=== PATIENT | female | born 1950 | race African-American/Black ===

== ENCOUNTER 2023-10-28 14:00 | Outpatient (CLI) | payer MEDICARE, MEDICAID, SELFPAY ==
[2023-10-28 15:57] LABS: Occult Blood,Stool Negative (Negative)
== END 2023-10-28 23:59 | disposition home or self-care (01) ==
LOC: LAB.DROPOF 14:02
PROVIDERS: PCP Internal Medicine; Visit Provider Family Medicine
DX: D64.9 Anemia, unspecified (principal)
CPT/HCPCS: 82272; G0328

== ENCOUNTER 2024-03-23 13:27 | Emergency (ER) | payer MEDICARE, MEDICAID, SELFPAY ==
[2024-03-23] VITALS (15 sets, daily range): BP systolic 70–109; BP diastolic 31–89; PULSE 48–81; RESP 11–25; TEMP 30–33.1; O2SAT 93–100; BMI 21.8
--- NOTE | 2024-03-23 13:26 | CT_ITS ---
PROCEDURE INFORMATION: Exam: CT Head Without Contrast Exam date and time: 03/23/2024 2:49 PM Age: 74 years old Clinical indication: Other: Huffman scan TECHNIQUE: Imaging protocol: Computed tomography of the head without contrast. Radiation optimization: All CT scans at this facility use at least one of these dose optimization techniques: automated exposure control; mA and/or kV adjustment per patient size (includes targeted exams where dose is matched to clinical indication); or iterative reconstruction. COMPARISON: No relevant prior studies available. FINDINGS: Brain: No acute intracranial hemorrhage.. Well delineated low-attenuation in the frontal regions bilaterally consistent with encephalomalacia. There is moderate diffuse heterogeneity of the white matter attenuation, consistent with chronic white matter ischemic changes. Moderate cerebral atrophy Cerebral ventricles: No ventriculomegaly. Paranasal sinuses: Air-fluid level in the left maxillary sinus may represent sinusitis Mastoid air cells: Visualized mastoid air cells are well aerated. Bones: Unremarkable. No acute fracture. Soft tissues: Unremarkable. IMPRESSION: No acute intracranial hemorrhage..
--- NOTE | 2024-03-23 13:26 | CT_ITS ---
PROCEDURE INFORMATION: Exam: CT Chest Without Contrast; Diagnostic Exam date and time: 03/23/2024 2:53 PM Age: 74 years old Clinical indication: Other: Off eliquis TECHNIQUE: Imaging protocol: Diagnostic computed tomography of the chest without contrast. Radiation optimization: All CT scans at this facility use at least one of these dose optimization techniques: automated exposure control; mA and/or kV adjustment per patient size (includes targeted exams where dose is matched to clinical indication); or iterative reconstruction. COMPARISON: No comparison FINDINGS: Lungs: There are areas of peribronchial opacificationin the left lower lobe and to lesser extent the right lower lobe and posterior segment of the left upper lobe. smaller ill-defined areas of opacity in the right upper lobe. Pleural spaces: Unremarkable. No pneumothorax. No pleural effusion. Heart: Unremarkable. No cardiomegaly. No pericardial effusion. Coronary arteries: There are coronary artery calcifications. Lymph nodes: Unremarkable. No enlarged lymph nodes. Vasculature: Unremarkable. No aortic aneurysm. Bones/joints: There is minimal compression of the superior endplates of T5, T7 and mild compression of the superior endplate of T12. These are of indeterminate age. Soft tissues: Unremarkable. Other findings: CT of the abdomen is separately reported. IMPRESSION: 1. Areas of abnormal opacity most extensive in the left upper lobe with smaller areas of opacity in right lower lobe, left upper lobe and right upper lobe. This is most consistent with pneumonia. 2. Mild thoracic compression deformities of uncertain age. No evidence to indicate acute Fracture.
--- NOTE | 2024-03-23 13:36 | CT_ITS ---
PROCEDURE INFORMATION: Exam: CT Abdomen And Pelvis Without Contrast Exam date and time: 03/23/2024 2:56 PM Age: 74 years old Clinical indication: Other: Found down, moaning in pain TECHNIQUE: Imaging protocol: Computed tomography of the abdomen and pelvis without contrast. Radiation optimization: All CT scans at this facility use at least one of these dose optimization techniques: automated exposure control; mA and/or kV adjustment per patient size (includes targeted exams where dose is matched to clinical indication); or iterative reconstruction. COMPARISON: CT CHEST WO CON 03/23/2024 2:53 PM FINDINGS: Liver: The liver is normal. Gallbladder and biliary ducts: There is hyperdense material within the gallbladder. This could be milk of calcium unless there has been a recent contrast-enhanced scan. Pancreas: There are peripancreatic inflammatory changes. The pancreas appears slightly prominent although homogeneous in attenuation. Spleen: The spleen is normal. Adrenal glands: The adrenals are normal. Kidneys and ureters: There is a 14 mm right renal cyst. This appears to be a simple cyst within the limits of noncontrast scan. There is a 10 mm cluster of calcifications in the left kidney. No definite mass identified. No hydronephrosis. Stomach and bowel: There is moderate fecal stasis throughout the colon. No wall thickening. There are few colonic diverticula with no associated inflammation. No small bowel wall thickening or distension. Appendix: No evidence of appendicitis. Intraperitoneal space: No free fluid or fluid collection. No free air. Vasculature: Unremarkable. No abdominal aortic aneurysm. Lymph nodes: Unremarkable. No enlarged lymph nodes. Urinary bladder: There is a Jimenez catheter within the bladder which is decompressed. Reproductive: There are calcified fibroids in the uterus. Bones/joints: There is mild compression of the superior endplate of T12. There is a small inferior endplate fracture of L3. No significant loss of height. No additional fractures. Soft tissues: Unremarkable. Other findings: Chest CT separately reported. IMPRESSION: 1. Pancreatic enlargement and peripancreatic inflammation highly consistent with acute pancreatitis. 2. Density within the gallbladder presumed to be milk of calcium in the absence of previous contrast-enhanced scan. 3. Moderate fecal stasis in the colon with a few diverticula. No acute diverticulitis and no mechanical bowel obstruction. 4. Mild compression of superior endplate of T12 and the inferior endplate of L3 of uncertain age. COMMENTS: Consistent with the [employer]'s Incidental Findings Committee white paper (J Am Siria Radiol 2018): Any incidental renal lesion less than 1 cm or classified as too small to characterize, or any incidental cystic renal lesion characterized as simple-appearing, is likely benign. No follow-up imaging is recommended for these lesions per consensus recommendations based on imaging criteria.
--- NOTE | 2024-03-23 13:36 | CT_ITS ---
PROCEDURE INFORMATION: Exam: CT Cervical Spine Without Contrast Exam date and time: 03/23/2024 2:51 PM Age: 74 years old Clinical indication: Other: Found down TECHNIQUE: Imaging protocol: Computed tomography of the cervical spine without contrast. Radiation optimization: All CT scans at this facility use at least one of these dose optimization techniques: automated exposure control; mA and/or kV adjustment per patient size (includes targeted exams where dose is matched to clinical indication); or iterative reconstruction. COMPARISON: CT HEAD/BRAIN WO CON 03/23/2024 2:49 PM FINDINGS: Bones: No acute fracture of the cervical spine. No subluxation or dislocation of the cervical spine. Intervertebral disc space narrowing may represent degenerative disc disease.. Anterior osteophyte formation C3 through C7. Posterior osteophyte formation C5 through C7. Degenerative changes in the facets at multiple levels. Degenerative changes at C1/C2 Paranasal sinuses: Opacities in the ethmoid sinuses and left maxillary sinus may represent sinusitis Lungs: Lung apices are normal. Thyroid: The thyroid is unremarkable Soft tissues: Unremarkable. IMPRESSION: 1. No acute fracture of the cervical spine. 2. No subluxation or dislocation of the cervical spine. 3. Intervertebral disc space narrowing may represent degenerative disc disease..
[2024-03-23 13:37] LABS: Basophils % 0.4 % (0.1-2.0); Eosinophils % 0.7 % (0.1-12.0); Hematocrit 37.3 % (37.0-47.0); Hemoglobin 11.7 g/dL (12.2-16.2); Lymphocytes # 0.9 K/mm3 (0.7-4.5); Lymphocytes % 16.3 % (10-50); Mean Corpuscular HGB Conc 31.3 g/dL (31.8-35.4); Mean Corpuscular Hemoglobin 22.6 pg (27.0-31.2); Mean Corpuscular Volume 72.3 fl (81-99); Mean Platelet Volume 10.2 fl (7.4-10.4); Monocytes # 0.1 K/mm3 (0.1-1.0); Monocytes % 1.9 % (1.7-9.3); Neutrophils # 4.6 K/mm3 (1.8-7.8); Neutrophils % 80.7 % (37.0-80.0); Red Blood Count 5.16 M/mm3 (4.20-5.40); White Blood Count 5.7 K/mm3 (4.8-10.8)
[2024-03-23 13:41] LABS: Platelet Count 44 K/mm3 (142-424)
--- NOTE | 2024-03-23 13:41 | PC.NURSE ---
Chary aware of plt count 45
[2024-03-23 13:45] LABS: Activated Partial Thrombo Time 43.8 seconds (22.8-30.6); INR 1.27 (0.9-1.1); Prothrombin Time 13.9 seconds (10.1-12.5)
[2024-03-23] MEDS: CEFTRIAXONE SODIUM 2 GM in 0.9 % SODIUM CHLORIDE 100 ML IV (14:00)
[2024-03-23] MEDS: 0.9 % SODIUM CHLORIDE 1000ML 1,500 ML 750 ML IV (14:00)
[2024-03-23 14:01] LABS: Adenovirus,PCR Not Detected (NotDetected); Bordetella Pertussis Not Detected (NotDetected); Chlamydophila Pneumoniae, PCR Not Detected (NotDetected); Coronavirus 19, PCR Not Detected (NotDetected); Coronavirus 229E Not Detected (NotDetected); Coronavirus NL63 Not Detected (NotDetected); Coronavirus OC43 Not Detected (NotDetected); Coronovirus HKU1,PCR Not Detected (NotDetected); Human Metapneumovirus Not Detected (NotDetected); Influenza A, PCR Not Detected (NotDetected); Influenza AH1, 2009 Not Detected (NotDetected); Influenza AH1, PCR Not Detected (NotDetected); Influenza AH3,PCR Not Detected (NotDetected); Influenza B, PCR Not Detected (NotDetected); Mycoplasma Pneumoniae, PCR Not Detected (NotDetected); Parainfluenza 1, PCR Not Detected (NotDetected); Parainfluenza 2, PCR Not Detected (NotDetected); Parainfluenza 3, PCR Not Detected (NotDetected); Parainfluenza 4, PCR Not Detected (NotDetected); Respiratory Syncytial Virus Not Detected (NotDetected); Rhinovirus/Enterovirus Not Detected (NotDetected)
--- NOTE | 2024-03-23 14:02 | ED_ITS ---
Discharge Plan Disposition Patient Disposition: Xfer SNF Condition: Serious Prescriptions Prescriptions: No Action rivastigmine 9.5 mg/24 hour patch 24 hour 9.5 mg transdermal DAILY acetaminophen 500 mg tablet 500 mg PO Q6H PRN (Reason: Pain) lactulose 10 gram/15 mL solution 20 g PO DAILY PRN (Reason: Abdominal Pain) loperamide 2 mg capsule 2 mg PO Q6H PRN (Reason: Diarrhea) lorazepam 2 mg/mL solution 2 mg IM Q6H PRN (Reason: severe agitation) Rx Instructions: until symptoms controlled ondansetron 4 mg tablet,disintegrating 4 mg PO Q6H PRN (Reason: Nausea) clonazepam 1 mg tablet 1 mg PO BID risperidone 1 mg tablet,disintegrating 1 mg PO TID sennosides [Senna Lax] 8.6 mg tablet 8.6 mg PO BID amiodarone 200 mg tablet 200 mg PO DAILY apixaban 5 mg tablet 5 mg PO BID clonidine 0.1 mg/24 hr patch weekly 1 patch transdermal WEEKLY pantoprazole 40 mg tablet,delayed release (DR/EC) 40 mg PO BID melatonin 5 mg capsule 5 mg PO HS polyethylene glycol 3350 17 gram/dose powder 17 g PO DAILY venlafaxine 150 mg capsule,extended release 24hr 150 mg PO DAILY hydrocodone-acetaminophen 5-325 mg tablet 1 tab PO TID Qty: 90 0RF Referrals Follow up/Referrals: Provider,Referral, MD [Primary Care Provider] - See instructions Clinical Impressions Clinical Impression: Dementia, Atrial fibrillation, Sepsis, Acute renal failure, Acute hypernatremia, Pneumonia, Hypothermia Stand Alone Forms Stand Alone Forms: Transfer Record - ED Instructions Patient Instructions: DI for Altered Mental Status Print Language Print Language: Khmer Discharge ED Provider: Son Forte General Adult HPI <Diana Samayoa (ED), TREATMENT COUNSELOR - Last Filed: 03/23/24 17:23> General Chief complaint: Altered Mental Status Stated complaint: hypothermia Time Seen by Provider: 03/23/24 13:35 Mode of Arrival: EMS Source of Information: EMS Limitations: Language Barrier Description of Symptoms (Recalled from ER Triage Doc. by RN): Pt. presents to the ED via EMS. long term nurse reports she has been minimally responsive for the past 3 days, which is not her baseline. Today they could not get a temperature and she felt very cold to the touch, so the decision to call EMS was made. Pt. is responsive to light painful stimuli. History of Present Illness HPI narrative: This is a 74-year-old female who presents to the ED via EMS. long term reports that she has been minimally responsive for the past 3 days. She has been hypothermic at 94 4 on the assisted paperwork. Typically patient is nonverbal but responsive. She typically is combative to staff. She has not been this way for 3 days. Staff has been unable to get a rectal temperature and has been very cold to the touch according to the staff at [facility]. Patient is responsible to painful stimuli. Patient arrives to the ED with a temperature of 87.5 rectally. She also has not had her medications for 3 days. Patient is on amiodarone and Eliquis for A-fib. Related Data Home Medications ?Medication ?Instructions ?Recorded ?Confirmed amiodarone 200 mg tablet 200 mg PO DAILY 10/25/23 03/23/24 apixaban 5 mg tablet 5 mg PO BID 10/25/23 03/23/24 clonidine 0.1 mg/24 hr weekly 1 patch transdermal WEEKLY 10/25/23 03/23/24 transdermal patch melatonin 5 mg capsule 5 mg PO HS 10/25/23 03/23/24 pantoprazole 40 mg tablet,delayed 40 mg PO BID 10/25/23 03/23/24 release polyethylene glycol 3350 17 17 g PO DAILY 10/25/23 03/23/24 gram/dose oral powder venlafaxine 150 mg 150 mg PO DAILY 10/25/23 03/23/24 capsule,extended release 24 hr rivastigmine 9.5 mg/24 hour 9.5 mg transdermal DAILY 01/04/24 03/23/24 transdermal patch acetaminophen 500 mg tablet 500 mg PO Q6H PRN Pain 03/12/24 03/23/24 clonazepam 1 mg tablet 1 mg PO BID 03/12/24 03/23/24 lactulose 10 gram/15 mL oral 20 g PO DAILY PRN Abdominal Pain 03/12/24 03/23/24 solution loperamide 2 mg capsule 2 mg PO Q6H PRN Diarrhea 03/12/24 03/23/24 lorazepam 2 mg/mL injection 2 mg IM Q6H PRN severe agitation 03/12/24 03/23/24 solution ondansetron 4 mg disintegrating 4 mg PO Q6H PRN Nausea 03/12/24 03/23/24 tablet risperidone 1 mg disintegrating 1 mg PO TID 03/12/24 03/23/24 tablet sennosides 8.6 mg tablet (Senna 8.6 mg PO BID 03/12/24 03/23/24 Lax) Previous Rx's ?Medication ?Instructions ?Recorded hydrocodone 5 mg-acetaminophen 325 1 tab PO TID #90 tabs 02/22/24 mg tablet Allergies Allergy/AdvReac Type Severity Reaction Status Date / Time No Known Allergies Allergy Verified 03/23/24 13:52 PFSH <Diana Samayoa (ED), TREATMENT COUNSELOR - Last Filed: 03/23/24 17:23> PFS Disclaimer: The information contained in this section may have been updated after the patient was seen, as this information can be updated by other users. Medical History Cerebrovascular disease, unspecified Unable to care for self Blindness Atrial fibrillation history of Seizure disorder Irritation of right eye Hypomagnesemia Hypokalemia Hypernatremia Inadequate oral intake Swallowing difficulty Dementia Intellectual disability Encephalopathy Right ovarian enlargement Transaminitis Cellulitis and abscess of face Facial swelling Thrombocytopenia History of Klebsiella pneumonia CAUSED SEVERE SEPSIS Chronic heart failure with preserved ejection fraction (HFpEF) Anemia Hypertension Severe sepsis Hypoglycemia Hypothermia Social History (Updated 03/23/24 @ 17:23 by Diana Samayoa (ED), TREATMENT COUNSELOR) Smoking Status: Unknown if ever smoked alcohol intake: former current occupational status: unemployed Travel in the last 8 weeks: None Other Medical History Have you received the Pneumonia Vaccine: Yes (03/23/21) <Diana Samayoa (ED), TREATMENT COUNSELOR - Last Filed: 03/23/24 17:23> ROS Obtained: Yes Systems reviewed as appropriate & no additional complaints except as documented Constitutional Constitutional: Reports as per HPI Physical Exam <Diana Samayoa (ED), TREATMENT COUNSELOR - Last Filed: 03/23/24 17:23> General General appearance: other Comment: Responsive to painful stimuli Head Head exam: atraumatic ENT ENT exam: Present mucous membranes dry Respiratory Respiratory exam: Present wheezes and other (Rhonchi throughout) Cardiovascular Cardiovascular exam: Present regular rate, normal heart sounds, +S1 and +S2 Abdominal Exam Abdominal exam: Present soft and normal bowel sounds Extremities Exam Extremities exam: Present other (Cold to touch) Neurological Exam Neurological exam: Present other (Responsive to painful stimuli, nonverbal) Skin Skin exam: Present dry, intact and pallor Medical Decision Making <Diana Samayoa (ED), TREATMENT COUNSELOR - Last Filed: 03/23/24 17:23> Medical Records Screening: Per USPSTF and CDC recommendations, given the prevalence of disease in our region, it is our hospital?s policy to screen for HIV and viral Hepatitis for all patients aged 18 and over and those with ongoing risk factors. Baldo Inquiry Pt receiving controlled substance: No Baldo was queried for this patient: No Vital Signs: 03/23/24 13:30 03/23/24 14:00 03/23/24 14:16 Temperature 87.5 F L 86.0 F L 87.4 F L Temperature Source Rectal Pulse Rate 60 64 Pulse Rate [Right Brachial] 66 Respiratory Rate 13 14 11 L Blood Pressure 95/54 L 104/70 L Blood Pressure [Right Arm] 109/89 L Blood Pressure Mean [Right Arm] 95 Blood Pressure Source Blood Pressure Source [Right Arm] Automatic Cuff Blood Pressure Position Blood Pressure Position [Right Arm] Supine 02 Sat by Pulse Oximetry 99 100 98 Oxygen Delivery Method Room Air Oxygen Flow Rate (LPM) 2 03/23/24 14:30 03/23/24 15:27 03/23/24 15:30 Temperature 87.8 F L 88.3 F L 88.3 F L Temperature Source Pulse Rate 48 L Pulse Rate [Right Brachial] Respiratory Rate 13 25 H 21 Blood Pressure 102/61 L 91/66 L 101/69 L Blood Pressure [Right Arm] Blood Pressure Mean [Right Arm] Blood Pressure Source Blood Pressure Source [Right Arm] Blood Pressure Position Blood Pressure Position [Right Arm] 02 Sat by Pulse Oximetry 97 Oxygen Delivery Method Oxygen Flow Rate (LPM) 03/23/24 16:00 03/23/24 16:30 03/23/24 16:45 Temperature 88.7 F L 89.2 F L 89.6 F L Temperature Source Pulse Rate 57 L Pulse Rate [Right Brachial] Respiratory Rate 16 17 16 Blood Pressure 93/57 L 83/60 L 97/67 L Blood Pressure [Right Arm] Blood Pressure Mean [Right Arm] Blood Pressure Source Blood Pressure Source [Right Arm] Blood Pressure Position Blood Pressure Position [Right Arm] 02 Sat by Pulse Oximetry 96 Oxygen Delivery Method Oxygen Flow Rate (LPM) 03/23/24 17:00 03/23/24 17:14 03/23/24 17:16 Temperature 90.0 F L 90.3 F L 90.3 F L Temperature Source Pulse Rate 65 74 55 L Pulse Rate [Right Brachial] Respiratory Rate 13 15 13 Blood Pressure 82/54 L 80/49 L 104/31 L Blood Pressure [Right Arm] Blood Pressure Mean [Right Arm] Blood Pressure Source Blood Pressure Source [Right Arm] Blood Pressure Position Blood Pressure Position [Right Arm] 02 Sat by Pulse Oximetry 96 95 93 L Oxygen Delivery Method Oxygen Flow Rate (LPM) 03/23/24 17:26 03/23/24 17:30 03/23/24 17:51 Temperature 90.7 F L 90.9 F L 91.6 F L Temperature Source Pulse Rate 66 81 66 Pulse Rate [Right Brachial] Respiratory Rate 15 13 14 Blood Pressure 70/51 L 88/63 L 88/63 L Blood Pressure [Right Arm] Blood Pressure Mean [Right Arm] Blood Pressure Source Automatic Cuff Blood Pressure Source [Right Arm] Blood Pressure Position Supine Blood Pressure Position [Right Arm] 02 Sat by Pulse Oximetry 96 93 L Oxygen Delivery Method Room Air Oxygen Flow Rate (LPM) Lab Data Lab Results 03/23/24 11:23: Lipase 220 03/23/24 13:23: Troponin I 0.03, NT-Pro-B Natriuret Pep 712 H 03/23/24 13:25: WBC 5.7, RBC 5.16, Hgb 11.7 L, Hct 37.3, MCV 72.3 L, MCH 22.6 L, MCHC 31.3 L, RDW 19.0 H, Plt Count 44 L*, MPV 10.2, Neut % (Auto) 80.7 H, Lymph % (Auto) 16.3, [place] % (Auto) 1.9, Eos % (Auto) 0.7, Baso % (Auto) 0.4, Neut # (Auto) 4.6, Lymph # (Auto) 0.9, [place] # (Auto) 0.1, Eos # (Auto) 0.0, Baso # (Auto) 0.0, ESR 88 H, PT 13.9 H, INR 1.27 H, APTT 43.8 H, Sodium 165 H*, Potassium 4.5, Chloride 126 H, Carbon Dioxide 34 H, Anion Gap 9.5, BUN 105 H*, C reatinine 3.00 H, Estimated Creat Clear 16, Estimated GFR 15 L*, Est GFR ( Amer) 19 L*, Glucose 79, Calcium 8.6, Total Bilirubin 0.5, AST 50 H, ALT 32, Alkaline Phosphatase 103, Total Creatine Kinase 80, C-Reactive Protein 215.0 H, Total Protein 5.8 L, Albumin 2.7 L, Globulin 3.1, Albumin/Globulin Ratio 0.9 L 03/23/24 13:49: Lactate 1.0, Chlamy pneumoniae PCR Not detected, Adenovirus (PCR) Not detected, B. pertussis DNA (PCR) Not detected, Coronavirus OC43 (PCR) Not detected, Coronavirus HKU1 (PCR) Not detected, Coronavirus 229E (PCR) Not detected, SARS-CoV-2 (PCR) Not detected, Coronavirus NL63 (PCR) Not detected, Human Metapneumovir PCR Not detected, Influenza A (H1) PCR Not detected, Influ A (H1N1/09) PCR Not detected, Influenza A (H3) PCR Not detected, Influenza Type A (PCR) Not detected, Influenza Type B (PCR) Not detected, M. pneumoniae (PCR) Not detected, Parainfluenza 1 (PCR) Not detected, Parainfluenza 2 (PCR) Not detected, Parainfluenza 3 (PCR) Not detected, Parainfluenza 4 (PCR) Not detected, RSV (PCR) Not detected, Entero/Rhino (PCR) Not detected 03/23/24 13:52: VBG pH 7.29 L, VBG pCO2 56.1 H, VBG HCO3 26.6, VBG Total CO2 28.3 H, VBG O2 Saturation 97.7 H, VBG Base Excess 0.1, VBG Lactic Acid 1.6 03/23/24 13:59: Urine Color Yellow, Urine Appearance Sl cloudy, Urine pH 5.0, Ur Specific Pa[place] >= 1.030, Urine Protein Trace, Urine Glucose (UA) Negative, Urine Ketones Negative, Urine Blood Negative, Urine Nitrate Negative, Urine Bilirubin 1+ A, Urine Urobilinogen 0.2, Ur Leukocyte Esterase 1+ A, Urine RBC Occasional, Urine WBC 20-50, Ur Squamous Epith Cells 5-10, Urine Bacteria 3+ 03/23/24 15:53: Troponin I 0.04 H 03/23/24 13:25 03/23/24 13:25 Orders (Tests/Meds): ED MEDICATIONS Discontinued Medications Generic Name Dose Route Start Last Admin Trade Name Vira PRN Reason Stop Dose Admin Ceftriaxone Sodium 2 gm/ 100 mls @ 200 mls/hr 03/23/24 13:23 03/23/24 14:00 Sodium Chloride IV 03/23/24 13:52 200 mls/hr ONCE ONE Administration Lactated Ringer's 1,500 mls @ 750 mls/hr 03/23/24 13:23 03/23/24 14:13 Lactated Ringer's 1000 Ml Bag 30 ml/kg infuse over 2 hr (1500 ml) 03/23/24 15:22 Not Given IV .Q2H ONE Protocol Sodium Chloride 1,500 mls @ 750 mls/hr 03/23/24 14:15 03/23/24 14:00 Sod Chlor 0.9% 1000ml Bag 30 ml/kg (1500 ml) 03/23/24 16:14 750 mls/hr IV Administration .Q2H ONE Protocol Dextrose/Sodium Chloride 1,000 mls @ 100 mls/hr 03/23/24 14:30 03/23/24 14:35 Dextrose 5%-0.45% Nacl Iv Soln IV 04/22/24 14:29 100 mls/hr .Q10H STAR Administration Norepinephrine/Dextrose 8 mg in 250 mls @ 3.75 mls/hr 03/23/24 17:30 03/23/24 17:35 Norepinephrine 8mg/250ml-D5w Premix IV 04/22/24 17:29 8 mcg/min .Q24H STAR 15 mls/hr Infusion Protocol 2 MCG/MIN ORDERS Category Date Time Status CT abdomen pelvis wo con Stat Cat Scan 03/23/24 13:[address] cervical spine wo con Stat Cat Scan 03/23/24 13:[address] chest wo con Stat Cat Scan 03/23/24 13:[address] head/brain wo con Stat Cat Scan 03/23/24 13:26 Completed Activated Partial Thrombo Time Stat Lab 03/23/24 13:25 Completed C-Reactive Protein Stat Lab 03/23/24 13:25 Completed Complete Blood Count Auto Diff Stat Lab 03/23/24 13:25 Completed Comprehensive Metabolic Panel Stat Lab 03/23/24 13:25 Completed Creatine Kinase Stat Lab 03/23/24 13:25 Completed Erythrocyte Sedimentation Rate Stat Lab 03/23/24 13:25 Completed Full Resp Panel w/COVID ([facility]) Routine Lab 03/23/24 13:49 Completed Lactic Acid Stat Lab 03/23/24 13:49 Completed Lipase Stat Lab 03/23/24 11:23 Completed NT Pro Brain Natriuretic Pep. Stat Lab 03/23/24 13:23 Completed Prothrombin Time INR Stat Lab 03/23/24 13:25 Completed Trop I [Troponin I] Stat Lab 03/23/24 13:23 Completed Troponin I Q3H Lab 03/23/24 15:53 Completed Urinalysis and Microscopic Routine Lab 03/23/24 13:59 Completed Blood Culture Stat Micro 03/23/24 13:23 Results Urine Culture Stat Micro 03/23/24 13:59 Results VBG [Venous Blood Gas] Stat RT 03/23/24 13:52 Results Medical Decision Narrative: Insert review patient is a 74-year-old female presenting to the emergency department for evaluation of hypothermia over the past 3 days. She is a [facility] resident who is on a floor bed due to mental status. She is minimally responsive. She has a temperature of 87.5 rectally upon arrival to the ED patient has not had any of her medications for 3 days. She has history of anemia, dementia, epilepsy, hypertension, A-fib and is on Eliquis and amiodarone. Patient is normally responsive but is only responsible to painful stimuli at this time.. Patient is 87.5 rectally upon arrival, blood pressure is systolic 90s over 60s, responsive to painful stimuli, appears to be toxic and septic. Differential diagnosis includes sepsis, hypothermic, renal failure, pneumonia, renal failure among others. Workup will be conducted with hematologic labs, specific imaging including carson scan with CT of head, abdomen and chest, provocative tests. Initial inventions include crystalloid bolus, antibiotics. Initial workup reviewed by me with sodium of 165, chloride 126, BUN 105, creatinine 3, pH 7.29, GFR of 15. Patient appears to be in acute renal failure along with hypernatremia and has a platelet count of 44 showing some idiopathic thrombocytopenia. Discussed plan at length with who has seen patient and placed orders as well. CT head was normal, CT abdomen showed pancreatitis, CT chest showed multifocal pneumonia with some old compression fractures. Discussed with who accepted the patient in transfer to [facility] Dr. Thomason accepted patient. Patient then dropped blood pressure to systolic 80. Patient has had 1500 normal saline but with her hypernatremia we chose to start Levophed and titrate for MAP of 65. Dr. Brandon has also been updated on patient and order the Levophed the ambulance has been notified and patient will be transferred als. <Tory Brandon, DO - Last Filed: 03/23/24 18:06> Vital Signs: 03/23/24 13:30 03/23/24 14:00 03/23/24 14:16 Temperature 87.5 F L 86.0 F L 87.4 F L Temperature Source Rectal Pulse Rate 60 64 Pulse Rate [Right Brachial] 66 Respiratory Rate 13 14 11 L Blood Pressure 95/54 L 104/70 L Blood Pressure [Right Arm] 109/89 L Blood Pressure Mean [Right Arm] 95 Blood Pressure Source Blood Pressure Source [Right Arm] Automatic Cuff Blood Pressure Position Blood Pressure Position [Right Arm] Supine 02 Sat by Pulse Oximetry 99 100 98 Oxygen Delivery Method Room Air Oxygen Flow Rate (LPM) 2 03/23/24 14:30 03/23/24 15:27 03/23/24 15:30 Temperature 87.8 F L 88.3 F L 88.3 F L Temperature Source Pulse Rate 48 L Pulse Rate [Right Brachial] Respiratory Rate 13 25 H 21 Blood Pressure 102/61 L 91/66 L 101/69 L Blood Pressure [Right Arm] Blood Pressure Mean [Right Arm] Blood Pressure Source Blood Pressure Source [Right Arm] Blood Pressure Position Blood Pressure Position [Right Arm] 02 Sat by Pulse Oximetry 97 Oxygen Delivery Method Oxygen Flow Rate (LPM) 03/23/24 16:00 03/23/24 16:30 03/23/24 16:45 Temperature 88.7 F L 89.2 F L 89.6 F L Temperature Source Pulse Rate 57 L Pulse Rate [Right Brachial] Respiratory Rate 16 17 16 Blood Pressure 93/57 L 83/60 L 97/67 L Blood Pressure [Right Arm] Blood Pressure Mean [Right Arm] Blood Pressure Source Blood Pressure Source [Right Arm] Blood Pressure Position Blood Pressure Position [Right Arm] 02 Sat by Pulse Oximetry 96 Oxygen Delivery Method Oxygen Flow Rate (LPM) 03/23/24 17:00 03/23/24 17:14 03/23/24 17:16 Temperature 90.0 F L 90.3 F L 90.3 F L Temperature Source Pulse Rate 65 74 55 L Pulse Rate [Right Brachial] Respiratory Rate 13 15 13 Blood Pressure 82/54 L 80/49 L 104/31 L Blood Pressure [Right Arm] Blood Pressure Mean [Right Arm] Blood Pressure Source Blood Pressure Source [Right Arm] Blood Pressure Position Blood Pressure Position [Right Arm] 02 Sat by Pulse Oximetry 96 95 93 L Oxygen Delivery Method Oxygen Flow Rate (LPM) 03/23/24 17:26 03/23/24 17:30 03/23/24 17:51 Temperature 90.7 F L 90.9 F L 91.6 F L Temperature Source Pulse Rate 66 81 66 Pulse Rate [Right Brachial] Respiratory Rate 15 13 14 Blood Pressure 70/51 L 88/63 L 88/63 L Blood Pressure [Right Arm] Blood Pressure Mean [Right Arm] Blood Pressure Source Automatic Cuff Blood Pressure Source [Right Arm] Blood Pressure Position Supine Blood Pressure Position [Right Arm] 02 Sat by Pulse Oximetry 96 93 L Oxygen Delivery Method Room Air Oxygen Flow Rate (LPM) Lab Data Lab Results 03/23/24 11:23: Lipase 220 03/23/24 13:23: Troponin I 0.03, NT-Pro-B Natriuret Pep 712 H 03/23/24 13:25: WBC 5.7, RBC 5.16, Hgb 11.7 L, Hct 37.3, MCV 72.3 L, MCH 22.6 L, MCHC 31.3 L, RDW 19.0 H, Plt Count 44 L*, MPV 10.2, Neut % (Auto) 80.7 H, Lymph % (Auto) 16.3, [place] % (Auto) 1.9, Eos % (Auto) 0.7, Baso % (Auto) 0.4, Neut # (Auto) 4.6, Lymph # (Auto) 0.9, [place] # (Auto) 0.1, Eos # (Auto) 0.0, Baso # (Auto) 0.0, ESR 88 H, PT 13.9 H, INR 1.27 H, APTT 43.8 H, Sodium 165 H*, Potassium 4.5, Chloride 126 H, Carbon Dioxide 34 H, Anion Gap 9.5, BUN 105 H*, C reatinine 3.00 H, Estimated Creat Clear 16, Estimated GFR 15 L*, Est GFR ( Amer) 19 L*, Glucose 79, Calcium 8.6, Total Bilirubin 0.5, AST 50 H, ALT 32, Alkaline Phosphatase 103, Total Creatine Kinase 80, C-Reactive Protein 215.0 H, Total Protein 5.8 L, Albumin 2.7 L, Globulin 3.1, Albumin/Globulin Ratio 0.9 L 03/23/24 13:49: Lactate 1.0, Chlamy pneumoniae PCR Not detected, Adenovirus (PCR) Not detected, B. pertussis DNA (PCR) Not detected, Coronavirus OC43 (PCR) Not detected, Coronavirus HKU1 (PCR) Not detected, Coronavirus 229E (PCR) Not detected, SARS-CoV-2 (PCR) Not detected, Coronavirus NL63 (PCR) Not detected, Human Metapneumovir PCR Not detected, Influenza A (H1) PCR Not detected, Influ A (H1N1/09) PCR Not detected, Influenza A (H3) PCR Not detected, Influenza Type A (PCR) Not detected, Influenza Type B (PCR) Not detected, M. pneumoniae (PCR) Not detected, Parainfluenza 1 (PCR) Not detected, Parainfluenza 2 (PCR) Not detected, Parainfluenza 3 (PCR) Not detected, Parainfluenza 4 (PCR) Not detected, RSV (PCR) Not detected, Entero/Rhino (PCR) Not detected 03/23/24 13:52: VBG pH 7.29 L, VBG pCO2 56.1 H, VBG HCO3 26.6, VBG Total CO2 28.3 H, VBG O2 Saturation 97.7 H, VBG Base Excess 0.1, VBG Lactic Acid 1.6 03/23/24 13:59: Urine Color Yellow, Urine Appearance Sl cloudy, Urine pH 5.0, Ur Specific [place] >= 1.030, Urine Protein Trace, Urine Glucose (UA) Negative, Urine Ketones Negative, Urine Blood Negative, Urine Nitrate Negative, Urine Bilirubin 1+ A, Urine Urobilinogen 0.2, Ur Leukocyte Esterase 1+ A, Urine RBC Occasional, Urine WBC 20-50, Ur Squamous Epith Cells 5-10, Urine Bacteria 3+ 03/23/24 15:53: Troponin I 0.04 H Orders (Tests/Meds): ED MEDICATIONS Discontinued Medications Generic Name Dose Route Start Last Admin Trade Name Vira PRN Reason Stop Dose Admin Ceftriaxone Sodium 2 gm/ 100 mls @ 200 mls/hr 03/23/24 13:23 03/23/24 14:00 Sodium Chloride IV 03/23/24 13:52 200 mls/hr ONCE ONE Administration Lactated Ringer's 1,500 mls @ 750 mls/hr 03/23/24 13:23 03/23/24 14:13 Lactated Ringer's 1000 Ml Bag 30 ml/kg infuse over 2 hr (1500 ml) 03/23/24 15:22 Not Given IV .Q2H ONE Protocol Sodium Chloride 1,500 mls @ 750 mls/hr 03/23/24 14:15 03/23/24 14:00 Sod Chlor 0.9% 1000ml Bag 30 ml/kg (1500 ml) 03/23/24 16:14 750 mls/hr IV Administration .Q2H ONE Protocol Dextrose/Sodium Chloride 1,000 mls @ 100 mls/hr 03/23/24 14:30 03/23/24 14:35 Dextrose 5%-0.45% Nacl Iv Soln IV 04/22/24 14:29 100 mls/hr .Q10H STAR Administration Norepinephrine/Dextrose 8 mg in 250 mls @ 3.75 mls/hr 03/23/24 17:30 03/23/24 17:35 Norepinephrine 8mg/250ml-D5w Premix IV 04/22/24 17:29 8 mcg/min .Q24H STAR 15 mls/hr Infusion Protocol 2 MCG/MIN ORDERS Category Date Time Status CT abdomen pelvis wo con Stat Cat Scan 03/23/24 13:[address] cervical spine wo con Stat Cat Scan 03/23/24 13:[address] chest wo con Stat Cat Scan 03/23/24 13:[address] head/brain wo con Stat Cat Scan 03/23/24 13:26 Completed Activated Partial Thrombo Time Stat Lab 03/23/24 13:25 Completed C-Reactive Protein Stat Lab 03/23/24 13:25 Completed Complete Blood Count Auto Diff Stat Lab 03/23/24 13:25 Completed Comprehensive Metabolic Panel Stat Lab 03/23/24 13:25 Completed Creatine Kinase Stat Lab 03/23/24 13:25 Completed Erythrocyte Sedimentation Rate Stat Lab 03/23/24 13:25 Completed Full Resp Panel w/COVID ([facility]) Routine Lab 03/23/24 13:49 Completed Lactic Acid Stat Lab 03/23/24 13:49 Completed Lipase Stat Lab 03/23/24 11:23 Completed NT Pro Brain Natriuretic Pep. Stat Lab 03/23/24 13:23 Completed Prothrombin Time INR Stat Lab 03/23/24 13:25 Completed Trop I [Troponin I] Stat Lab 03/23/24 13:23 Completed Troponin I Q3H Lab 03/23/24 15:53 Completed Urinalysis and Microscopic Routine Lab 03/23/24 13:59 Completed Blood Culture Stat Micro 03/23/24 13:23 Results Urine Culture Stat Micro 03/23/24 13:59 Results VBG [Venous Blood Gas] Stat RT 03/23/24 13:52 Results Medical Decision Narrative: Insert review patient is a 74-year-old female presenting to the emergency department for evaluation of hypothermia over the past 3 days. She is a [facility] resident who is on a floor bed due to mental status. She is minimally responsive. She has a temperature of 87.5 rectally upon arrival to the ED patient has not had any of her medications for 3 days. She has history of anemia, dementia, epilepsy, hypertension, A-fib and is on Eliquis and amiodarone. Patient is normally responsive but is only responsible to painful stimuli at this time.. Patient is 87.5 rectally upon arrival, blood pressure is systolic 90s over 60s, responsive to painful stimuli, appears to be toxic and septic. Differential diagnosis includes sepsis, hypothermic, renal failure, pneumonia, renal failure among others. Workup will be conducted with hematologic labs, specific imaging including carson scan with CT of head, abdomen and chest, provocative tests. Initial inventions include crystalloid bolus, antibiotics. Initial workup reviewed by me with sodium of 165, chloride 126, BUN 105, creatinine 3, pH 7.29, GFR of 15. Patient appears to be in acute renal failure along with hypernatremia and has a platelet count of 44 showing some idiopathic thrombocytopenia. Discussed plan at length with who has seen patient and placed orders as well. CT head was normal, CT abdomen showed pancreatitis, CT chest showed multifocal pneumonia with some old compression fractures. Discussed with who accepted the patient in transfer to [facility] Dr. Thomason accepted patient. Patient then dropped blood pressure to systolic 80. Patient has had 1500 normal saline but with her hypernatremia we chose to start Levophed and titrate for MAP of 65. Dr. Brandon has also been updated on patient and order the Levophed the ambulance has been notified and patient will be transferred als. I was consulted by the RASHAD, and we discussed the complexity of the problems being addressed. I approved the treatment and management plan for this patient's care in the emergency department, thus performing a substantive portion of the medical decision making. Tory Brandon, DO <Son Forte MD - Last Filed: 03/24/24 15:26> Vital Signs: 03/23/24 13:30 03/23/24 14:00 03/23/24 14:16 Temperature 87.5 F L 86.0 F L 87.4 F L Temperature Source Rectal Pulse Rate 60 64 Pulse Rate [Right Brachial] 66 Respiratory Rate 13 14 11 L Blood Pressure 95/54 L 104/70 L Blood Pressure [Right Arm] 109/89 L Blood Pressure Mean [Right Arm] 95 Blood Pressure Source Blood Pressure Source [Right Arm] Automatic Cuff Blood Pressure Position Blood Pressure Position [Right Arm] Supine 02 Sat by Pulse Oximetry 99 100 98 Oxygen Delivery Method Room Air Oxygen Flow Rate (LPM) 2 03/23/24 14:30 03/23/24 15:27 03/23/24 15:30 Temperature 87.8 F L 88.3 F L 88.3 F L Temperature Source Pulse Rate 48 L Pulse Rate [Right Brachial] Respiratory Rate 13 25 H 21 Blood Pressure 102/61 L 91/66 L 101/69 L Blood Pressure [Right Arm] Blood Pressure Mean [Right Arm] Blood Pressure Source Blood Pressure Source [Right Arm] Blood Pressure Position Blood Pressure Position [Right Arm] 02 Sat by Pulse Oximetry 97 Oxygen Delivery Method Oxygen Flow Rate (LPM) 03/23/24 16:00 03/23/24 16:30 03/23/24 16:45 Temperature 88.7 F L 89.2 F L 89.6 F L Temperature Source Pulse Rate 57 L Pulse Rate [Right Brachial] Respiratory Rate 16 17 16 Blood Pressure 93/57 L 83/60 L 97/67 L Blood Pressure [Right Arm] Blood Pressure Mean [Right Arm] Blood Pressure Source Blood Pressure Source [Right Arm] Blood Pressure Position Blood Pressure Position [Right Arm] 02 Sat by Pulse Oximetry 96 Oxygen Delivery Method Oxygen Flow Rate (LPM) 03/23/24 17:00 03/23/24 17:14 03/23/24 17:16 Temperature 90.0 F L 90.3 F L 90.3 F L Temperature Source Pulse Rate 65 74 55 L Pulse Rate [Right Brachial] Respiratory Rate 13 15 13 Blood Pressure 82/54 L 80/49 L 104/31 L Blood Pressure [Right Arm] Blood Pressure Mean [Right Arm] Blood Pressure Source Blood Pressure Source [Right Arm] Blood Pressure Position Blood Pressure Position [Right Arm] 02 Sat by Pulse Oximetry 96 95 93 L Oxygen Delivery Method Oxygen Flow Rate (LPM) 03/23/24 17:26 03/23/24 17:30 03/23/24 17:51 Temperature 90.7 F L 90.9 F L 91.6 F L Temperature Source Pulse Rate 66 81 66 Pulse Rate [Right Brachial] Respiratory Rate 15 13 14 Blood Pressure 70/51 L 88/63 L 88/63 L Blood Pressure [Right Arm] Blood Pressure Mean [Right Arm] Blood Pressure Source Automatic Cuff Blood Pressure Source [Right Arm] Blood Pressure Position Supine Blood Pressure Position [Right Arm] 02 Sat by Pulse Oximetry 96 93 L Oxygen Delivery Method Room Air Oxygen Flow Rate (LPM) Lab Data Lab Results 03/23/24 11:23: Lipase 220 03/23/24 13:23: Troponin I 0.03, NT-Pro-B Natriuret Pep 712 H 03/23/24 13:25: WBC 5.7, RBC 5.16, Hgb 11.7 L, Hct 37.3, MCV 72.3 L, MCH 22.6 L, MCHC 31.3 L, RDW 19.0 H, Plt Count 44 L*, MPV 10.2, Neut % (Auto) 80.7 H, Lymph % (Auto) 16.3, [place] % (Auto) 1.9, Eos % (Auto) 0.7, Baso % (Auto) 0.4, Neut # (Auto) 4.6, Lymph # (Auto) 0.9, [place] # (Auto) 0.1, Eos # (Auto) 0.0, Baso # (Auto) 0.0, ESR 88 H, PT 13.9 H, INR 1.27 H, APTT 43.8 H, Sodium 165 H*, Potassium 4.5, Chloride 126 H, Carbon Dioxide 34 H, Anion Gap 9.5, BUN 105 H*, C reatinine 3.00 H, Estimated Creat Clear 16, Estimated GFR 15 L*, Est GFR ( Amer) 19 L*, Glucose 79, Calcium 8.6, Total Bilirubin 0.5, AST 50 H, ALT 32, Alkaline Phosphatase 103, Total Creatine Kinase 80, C-Reactive Protein 215.0 H, Total Protein 5.8 L, Albumin 2.7 L, Globulin 3.1, Albumin/Globulin Ratio 0.9 L 03/23/24 13:49: Lactate 1.0, Chlamy pneumoniae PCR Not detected, Adenovirus (PCR) Not detected, B. pertussis DNA (PCR) Not detected, Coronavirus OC43 (PCR) Not detected, Coronavirus HKU1 (PCR) Not detected, Coronavirus 229E (PCR) Not detected, SARS-CoV-2 (PCR) Not detected, Coronavirus NL63 (PCR) Not detected, Human Metapneumovir PCR Not detected, Influenza A (H1) PCR Not detected, Influ A (H1N1/09) PCR Not detected, Influenza A (H3) PCR Not detected, Influenza Type A (PCR) Not detected, Influenza Type B (PCR) Not detected, M. pneumoniae (PCR) Not detected, Parainfluenza 1 (PCR) Not detected, Parainfluenza 2 (PCR) Not detected, Parainfluenza 3 (PCR) Not detected, Parainfluenza 4 (PCR) Not detected, RSV (PCR) Not detected, Entero/Rhino (PCR) Not detected 03/23/24 13:52: VBG pH 7.29 L, VBG pCO2 56.1 H, VBG HCO3 26.6, VBG Total CO2 28.3 H, VBG O2 Saturation 97.7 H, VBG Base Excess 0.1, VBG Lactic Acid 1.6 03/23/24 13:59: Urine Color Yellow, Urine Appearance Sl cloudy, Urine pH 5.0, Ur Specific [place] >= 1.030, Urine Protein Trace, Urine Glucose (UA) Negative, Urine Ketones Negative, Urine Blood Negative, Urine Nitrate Negative, Urine Bilirubin 1+ A, Urine Urobilinogen 0.2, Ur Leukocyte Esterase 1+ A, Urine RBC Occasional, Urine WBC 20-50, Ur Squamous Epith Cells 5-10, Urine Bacteria 3+ 03/23/24 15:53: Troponin I 0.04 H Orders (Tests/Meds): ED MEDICATIONS Discontinued Medications Generic Name Dose Route Start Last Admin Trade Name Frefior PRN Reason Stop Dose Admin Ceftriaxone Sodium 2 gm/ 100 mls @ 200 mls/hr 03/23/24 13:23 03/23/24 14:00 Sodium Chloride IV 03/23/24 13:52 200 mls/hr ONCE ONE Administration Lactated Ringer's 1,500 mls @ 750 mls/hr 03/23/24 13:23 03/23/24 14:13 Lactated Ringer's 1000 Ml Bag 30 ml/kg infuse over 2 hr (1500 ml) 03/23/24 15:22 Not Given IV .Q2H ONE Protocol Sodium Chloride 1,500 mls @ 750 mls/hr 03/23/24 14:15 03/23/24 14:00 Sod Chlor 0.9% 1000ml Bag 30 ml/kg (1500 ml) 03/23/24 16:14 750 mls/hr IV Administration .Q2H ONE Protocol Dextrose/Sodium Chloride 1,000 mls @ 100 mls/hr 03/23/24 14:30 03/23/24 14:35 Dextrose 5%-0.45% Nacl Iv Soln IV 04/22/24 14:29 100 mls/hr .Q10H STAR Administration Norepinephrine/Dextrose 8 mg in 250 mls @ 3.75 mls/hr 03/23/24 17:30 03/23/24 17:35 Norepinephrine 8mg/250ml-D5w Premix IV 04/22/24 17:29 8 mcg/min .Q24H STAR 15 mls/hr Infusion Protocol 2 MCG/MIN ORDERS Category Date Time Status CT abdomen pelvis wo con Stat Cat Scan 03/23/24 13:[address] cervical spine wo con Stat Cat Scan 03/23/24 13:[address] chest wo con Stat Cat Scan 03/23/24 13:[address] head/brain wo con Stat Cat Scan 03/23/24 13:26 Completed Activated Partial Thrombo Time Stat Lab 03/23/24 13:25 Completed C-Reactive Protein Stat Lab 03/23/24 13:25 Completed Complete Blood Count Auto Diff Stat Lab 03/23/24 13:25 Completed Comprehensive Metabolic Panel Stat Lab 03/23/24 13:25 Completed Creatine Kinase Stat Lab 03/23/24 13:25 Completed Erythrocyte Sedimentation Rate Stat Lab 03/23/24 13:25 Completed Full Resp Panel w/COVID ([facility]) Routine Lab 03/23/24 13:49 Completed Lactic Acid Stat Lab 03/23/24 13:49 Completed Lipase Stat Lab 03/23/24 11:23 Completed NT Pro Brain Natriuretic Pep. Stat Lab 03/23/24 13:23 Completed Prothrombin Time INR Stat Lab 03/23/24 13:25 Completed Trop I [Troponin I] Stat Lab 03/23/24 13:23 Completed Troponin I Q3H Lab 03/23/24 15:53 Completed Urinalysis and Microscopic Routine Lab 03/23/24 13:59 Completed Blood Culture Stat Micro 03/23/24 13:23 Results Urine Culture Stat Micro 03/23/24 13:59 Results VBG [Venous Blood Gas] Stat RT 03/23/24 13:52 Results Medical Decision Narrative: Insert review patient is a 74-year-old female presenting to the emergency department for evaluation of hypothermia over the past 3 days. She is a [facility] resident who is on a floor bed due to mental status. She is minimally responsive. She has a temperature of 87.5 rectally upon arrival to the ED patient has not had any of her medications for 3 days. She has history of anemia, dementia, epilepsy, hypertension, A-fib and is on Eliquis and amiodarone. Patient is normally responsive but is only responsible to painful stimuli at this time.. Patient is 87.5 rectally upon arrival, blood pressure is systolic 90s over 60s, responsive to painful stimuli, appears to be toxic and septic. Differential diagnosis includes sepsis, hypothermic, renal failure, pneumonia, renal failure among others. Workup will be conducted with hematologic labs, specific imaging including carson scan with CT of head, abdomen and chest, provocative tests. Initial inventions include crystalloid bolus, antibiotics. Initial workup reviewed by me with sodium of 165, chloride 126, BUN 105, creatinine 3, pH 7.29, GFR of 15. Patient appears to be in acute renal failure along with hypernatremia and has a platelet count of 44 showing some idiopathic thrombocytopenia. Discussed plan at length with who has seen patient and placed orders as well. CT head was normal, CT abdomen showed pancreatitis, CT chest showed multifocal pneumonia with some old compression fractures. Discussed with who accepted the patient in transfer to [facility] Dr. Thomason accepted patient. Patient then dropped blood pressure to systolic 80. Patient has had 1500 normal saline but with her hypernatremia we chose to start Levophed and titrate for MAP of 65. Dr. Brandon has also been updated on patient and order the Levophed the ambulance has been notified and patient will be transferred als. I was consulted by the RASHAD, and we discussed the complexity of the problems being addressed. I approved the treatment and management plan for this patient's care in the emergency department, thus performing a substantive portion of the medical decision making. Tory Brandon DO Critical Care <Diana Samayoa (ED), TREATMENT COUNSELOR - Last Filed: 03/23/24 17:23> Critical Care Time Critical Care Time: No <Tory Brandon DO - Last Filed: 03/23/24 18:06> Critical Care Time Critical Care Time: Yes Attestation: On 03/23/24, the high probability of a clinically significant, sudden or life threatening deterioration of the following system(s) required my full and direct attention, intervention and personal management. The time I documented below is in addition to time spent performing reported procedures but includes the following listed in this critical care notation. Total Time Total Critical Care Time: 45
[2024-03-23 14:05] LABS: Microscopic, Urine URINE MICROSCOPIC (MICROSCOPIC)
[2024-03-23 14:05] LABS: Lactate Venous 1.6 mmol/L (0.4-2.0); VBG Base Excess 0.1 mmol/L (-2.4-2.3); VBG HCO3 26.6 mmol/L (23-30); VBG Oxygen Saturation 97.7 % (50-70); VBG PH 7.29 mmol/L (7.31-7.41); VBG Total CO2 28.3 mmol/L (23-27)
--- NOTE | 2024-03-23 14:05 | ECG_ITS ---
APPROVED REPORT Exam: Resting ECG HR:84 bpm ECG Measurements Heart Rate 84 AXES QRSd 92 QRS 45 QT 382 T -89 QTc 423 Conclusion ATRIAL FIBRILLATION Electronically signed by : ELIAN RODRIGUEZ, 03/23/2024 14:59:34
[2024-03-23 14:07] LABS: VBG PCO2 56.1 mmol/L (35-51)
[2024-03-23 14:09] LABS: Albumin Level 2.7 g/dl (3.5-5.0); Potassium 4.5 mmoL/L (3.5-5.1)
[2024-03-23 14:11] LABS: Appearance,Urine SL CLOUDY (Clear); Blood, Urine Negative (Negative); Color,Urine YELLOW (Yellow); Glucose,Urine (UA) Negative (Negative); Ketones,Urine Negative (Negative); Leukocyte Esterase,Urine 1+ (Negative); Nitrate,Urine Negative (Negative); Protein,Urine TRACE (Negative); Specific Gravity, Urine >= 1.030 (1.005-1.030); Urobilinogen,Urine 0.2 EU/dl (0.2)
[2024-03-23 14:11] LABS: Creatinine Clearance Estimated 16 mL/min (50-200); Estimated Glomerular Filt Rate 15 ml/min (>60); GFR (African American) 19 ML/MIN (>60)
[2024-03-23 14:12] LABS: Alanine Aminotransferase 32 U/L (12-78); Albumin/Globulin Ratio 0.9 (1.1-1.8); Alkaline Phosphatase 103 U/L (38-126); Anion Gap 9.5 mEq/L (5-15); Aspartate Amino Transferase 50 U/L (14-36); Bilirubin,Total 0.5 mg/dl (0.2-1.3); Calcium 8.6 mg/dl (8.4-10.2); Carbon Dioxide 34 mmol/L (22.0-30.0); Creatine Kinase 80 U/L (30-135); Globulin 3.1 g/dL (1.3-3.2); Glucose 79 mg/dl (74-100); Total Protein,Serum 5.8 g/dl (6.3-8.2)
[2024-03-23 14:13] LABS: Bilirubin,Urine 1+ (Negative)
[2024-03-23 14:16] LABS: Blood Urea Nitrogen 105 mg/dl (7-17); Chloride 126 mmol/L (98-107); Sodium 165 mmol/L (136-145)
[2024-03-23] MEDS: Dex 5% in 0.45% NaCl 1,000 ML 100 ML IV (14:35)
[2024-03-23 14:38] LABS: Erythrocyte Sedimentation Rate 88 mm/hr (0-30)
[2024-03-23 14:49] LABS: NT Pro Brain Natriuretic Pep. 712 pg/mL (0-125)
[2024-03-23 14:51] LABS: Troponin I 0.03 ng/ml (0.00-0.034)
[2024-03-23 14:57] LABS: Bacteria,Urine 3+ /lpf; RBC,Urine Occasional #/hpf (0-3); WBC,Urine 20-50 #/hpf (0-3)
[2024-03-23 16:21] LABS: Troponin I 0.04 ng/ml (0.00-0.034)
[2024-03-23 16:54] LABS: Lipase 220 U/L (23-300)
--- NOTE | 2024-03-23 16:58 | PC.NURSE ---
accepted patient at [facility].
--- NOTE | 2024-03-23 17:16 | PC.NURSE ---
calling ems at this time.
[2024-03-23] MEDS: NOREPINEPHRINE BITARTRATE/D5W 8 MG/250 ML PLAST..BAG 3.75 MG IV (17:19)
--- NOTE | 2024-03-24 08:17 | PC.NURSE ---
urine culture prelim discussed with , waiting on the final at this time
--- NOTE | 2024-03-25 13:49 | PC.NURSE ---
faxed completed urine culture to [facility] . Blood cultures no growth through day 2
--- NOTE | 2024-03-28 05:51 | PC.NURSE ---
Lab called to report pt had a positive blood culture. Anaerobic-gram positive rods. Spoke with Maryjane Wood MD and he stated to call [facility]. This RN called [facility] and spoke with JEAN Page who was taking care of the pt. Reported positive blood culture result to her.
== END 2024-03-23 18:00 ==
PROVIDERS: Nurse Practitioner; Emergency Provider Emergency Medicine
DX: R41.82 Altered mental status, unspecified (principal); T68.XXXA Hypothermia, initial encounter; J18.9 Pneumonia, unspecified organism; E87.0 Hyperosmolality and hypernatremia; N17.9 Acute kidney failure, unspecified; A41.9 Sepsis, unspecified organism; I48.91 Unspecified atrial fibrillation; G40.909 Epilepsy, unspecified, not intractable, without status epilepticus
CPT/HCPCS: 96361; 70450; 71250; 72125; 74176; 80053; 81001; 82550; 82803; 83605; 83690; 83880; 84484; 85025; 85610; 85651; 85730; 86140; 87040; 87075; 87086; 87088; 87186; 87633; 93005; 96365; 99291; J0696; J7030

== ENCOUNTER 2024-07-24 09:30 | Outpatient (CLI) | payer MEDICARE, MEDICAID, SELFPAY ==
[2024-07-24 09:40] LABS: Basophils % 0.2 % (0.1-2.0); Eosinophils # 0.2 K/mm3 (0.0-0.4); Eosinophils % 1.8 % (0.1-12.0); Hematocrit 34.1 % (37.0-47.0); Hemoglobin 10.4 g/dL (12.2-16.2); Lymphocytes # 2.6 K/mm3 (0.7-4.5); Lymphocytes % 29.6 % (10-50); Mean Corpuscular HGB Conc 30.5 g/dL (31.8-35.4); Mean Corpuscular Hemoglobin 21.3 pg (27.0-31.2); Mean Corpuscular Volume 69.7 fl (81-99); Monocytes # 0.7 K/mm3 (0.1-1.0); Monocytes % 7.4 % (1.7-9.3); Neutrophils # 5.3 K/mm3 (1.8-7.8); Neutrophils % 60.3 % (37.0-80.0); Platelet Count 252 K/mm3 (142-424); Red Blood Count 4.89 M/mm3 (4.20-5.40); Red Cell Distribution Width 14.9 % (11.5-17.5); White Blood Count 8.8 K/mm3 (4.8-10.8)
== END 2024-07-24 23:59 | disposition home or self-care (01) ==
PROVIDERS: PCP Family Medicine; Visit Provider Family Medicine
DX: D64.9 Anemia, unspecified (principal)
CPT/HCPCS: 36415; 85025

== ENCOUNTER 2024-08-12 07:30 | Outpatient (CLI) | payer MEDICARE, MEDICAID, SELFPAY ==
[2024-08-12 08:25] LABS: Valproic Acid, (Depakene) 33.3 ug/ml (50-100)
[2024-08-12 11:37] LABS: Basophils % 0.1 % (0.1-2.0); Eosinophils # 0.1 K/mm3 (0.0-0.4); Eosinophils % 1.3 % (0.1-12.0); Hematocrit 31.2 % (37.0-47.0); Hemoglobin 9.7 g/dL (12.2-16.2); Lymphocytes # 1.6 K/mm3 (0.7-4.5); Lymphocytes % 23.2 % (10-50); Mean Corpuscular HGB Conc 31.1 g/dL (31.8-35.4); Mean Corpuscular Hemoglobin 21.9 pg (27.0-31.2); Mean Corpuscular Volume 70.4 fl (81-99); Monocytes # 0.6 K/mm3 (0.1-1.0); Monocytes % 8.2 % (1.7-9.3); Neutrophils # 4.7 K/mm3 (1.8-7.8); Neutrophils % 66.9 % (37.0-80.0); Nucleated Red Blood Cells # 0 10^3/uL; Nucleated Red Blood Cells % 0 %; Platelet Count 205 K/mm3 (142-424); Red Blood Count 4.43 M/mm3 (4.20-5.40); Red Cell Distribution Width 16.4 % (11.5-17.5); Red Cell Distribution Width-SD 40.4 fL
== END 2024-08-12 23:59 | disposition home or self-care (01) ==
PROVIDERS: PCP Nurse Practitioner Family; Visit Provider Nurse Practitioner Family
DX: D64.9 Anemia, unspecified (principal); R89.2 Abnormal level of other drugs, medicaments and biological substances in specimens from other organs, systems and tissues
CPT/HCPCS: 36415; 80164; 85025

== ENCOUNTER 2024-09-06 07:03 | Outpatient (CLI) | payer MEDICARE, MEDICAID, SELFPAY ==
[2024-09-06 07:15] LABS: Basophils % 0.2 % (0.1-2.0); Eosinophils # 0.1 Kmm3 (0.0-0.4); Eosinophils % 1.8 % (0.1-12.0); Hematocrit 34.8 % (37.0-47.0); Hemoglobin 10.8 g/dL (12.2-16.2); Immature Granulocytes # 0.01 10^3uL; Immature Granulocytes % 0.2 %; Lymphocytes # 1.4 K/mm3 (0.7-4.5); Lymphocytes % 31.3 % (10-50); Mean Corpuscular Hemoglobin 21.6 pg (27.0-31.2); Mean Corpuscular Volume 69.6 fl (81-99); Monocytes # 0.3 K/mm3 (0.1-1.0); Monocytes % 5.7 % (1.7-9.3); Neutrophils # 2.7 K/mm3 (1.8-7.8); Neutrophils % 60.8 % (37.0-80.0); Nucleated Red Blood Cells # 0 10^3/uL; Nucleated Red Blood Cells % 0 %; Platelet Count 86 K/mm3 (142-424); Red Cell Distribution Width 17.6 % (11.5-17.5); Red Cell Distribution Width-SD 42.6 fL; White Blood Count 4.4 K/mm3 (4.8-10.8)
[2024-09-06 08:30] LABS: Albumin Level 3.7 g/dl (3.5-5.0); Chloride 112 mmol/L (98-107); Sodium 141 mmol/L (136-145)
[2024-09-06 08:31] LABS: Potassium 5.9 mmoL/L (3.5-5.1)
[2024-09-06 08:33] LABS: Alanine Aminotransferase 32 U/L (12-78); Albumin/Globulin Ratio 1.2 (1.1-1.8); Alkaline Phosphatase 165 U/L (38-126); Anion Gap 9.9 mEq/L (5-15); Aspartate Amino Transferase 38 U/L (14-36); Bilirubin,Total 0.2 mg/dl (0.2-1.3); Blood Urea Nitrogen 40 mg/dl (7-17); Carbon Dioxide 25 mmol/L (22.0-30.0); Estimated Glomerular Filt Rate 49 ml/min (>60); GFR (African American) 59 ML/MIN (>60); Globulin 3.2 g/dL (1.3-3.2); Total Protein,Serum 6.9 g/dl (6.3-8.2)
[2024-09-06 08:34] LABS: Calcium 9.4 mg/dl (8.4-10.2); Glucose 63 mg/dl (74-100); Iron 106 ug/dL (37-170)
[2024-09-06 08:44] LABS: Total Iron Binding Capacity 296 ug/dL (265-497)
[2024-09-06 09:09] LABS: Ferritin 137 ng/ml (11.1-264)
== END 2024-09-06 23:59 | disposition home or self-care (01) ==
PROVIDERS: PCP Family Medicine; Visit Provider Family Medicine
DX: D64.9 Anemia, unspecified (principal); I10 Essential (primary) hypertension
CPT/HCPCS: 36415; 80053; 82728; 83540; 83550; 84443; 85025

== ENCOUNTER 2024-09-06 13:52 | Outpatient (CLI) | payer MEDICARE, MEDICAID, SELFPAY ==
[2024-09-06 14:13] LABS: Chloride 109 mmol/L (98-107); Sodium 140 mmol/L (136-145)
[2024-09-06 14:16] LABS: Blood Urea Nitrogen 41 mg/dl (7-17); Calcium 9.4 mg/dl (8.4-10.2); Carbon Dioxide 28 mmol/L (22.0-30.0); Estimated Glomerular Filt Rate 44 ml/min (>60); GFR (African American) 53 ML/MIN (>60); Glucose 107 mg/dl (74-100)
== END 2024-09-06 23:59 | disposition home or self-care (01) ==
LOC: LAB.DROPOF 13:53
PROVIDERS: PCP Family Medicine; Visit Provider Family Medicine
DX: I50.9 Heart failure, unspecified (principal)
CPT/HCPCS: 80048

== ENCOUNTER 2024-09-07 08:45 | Outpatient (CLI) | payer MEDICARE, MEDICAID, SELFPAY ==
[2024-09-07 09:30] LABS: Chloride 107 mmol/L (98-107); Potassium 5.4 mmoL/L (3.5-5.1); Sodium 144 mmol/L (136-145)
[2024-09-07 09:33] LABS: Anion Gap 9.4 mEq/L (5-15); Blood Urea Nitrogen 48 mg/dl (7-17); Calcium 9.4 mg/dl (8.4-10.2); Carbon Dioxide 33 mmol/L (22.0-30.0); Estimated Glomerular Filt Rate 40 ml/min (>60); GFR (African American) 49 ML/MIN (>60); Glucose 78 mg/dl (74-100)
== END 2024-09-07 23:59 | disposition home or self-care (01) ==
LOC: LAB.DROPOF 08:46
PROVIDERS: PCP Family Medicine; Visit Provider Family Medicine
DX: I50.30 Unspecified diastolic (congestive) heart failure (principal)
CPT/HCPCS: 80048

== ENCOUNTER 2024-09-08 08:48 | Outpatient (CLI) | payer MEDICARE, MEDICAID, SELFPAY ==
[2024-09-08 09:25] LABS: Chloride 107 mmol/L (98-107); Potassium 4.9 mmoL/L (3.5-5.1); Sodium 144 mmol/L (136-145)
[2024-09-08 09:28] LABS: Anion Gap 6.9 mEq/L (5-15); Blood Urea Nitrogen 38 mg/dl (7-17); Carbon Dioxide 35 mmol/L (22.0-30.0); Estimated Glomerular Filt Rate 61 ml/min (>60); GFR (African American) 74 ML/MIN (>60)
[2024-09-08 09:29] LABS: Calcium 9.4 mg/dl (8.4-10.2)
[2024-09-08 09:35] LABS: Glucose 51 mg/dl (74-100)
== END 2024-09-08 23:59 | disposition home or self-care (01) ==
LOC: LAB 08:50
PROVIDERS: PCP Family Medicine; Visit Provider Family Medicine
DX: I50.30 Unspecified diastolic (congestive) heart failure (principal)
CPT/HCPCS: 80048

== ENCOUNTER 2024-09-09 07:19 | Outpatient (CLI) | payer MEDICARE, MEDICAID, SELFPAY ==
[2024-09-09 07:47] LABS: Basophils % 0.3 % (0.1-2.0); Eosinophils # 0.1 Kmm3 (0.0-0.4); Eosinophils % 1.2 % (0.1-12.0); Hematocrit 32.6 % (37.0-47.0); Hemoglobin 10.1 g/dL (12.2-16.2); Immature Granulocytes # 0.03 10^3uL; Immature Granulocytes % 0.4 %; Lymphocytes # 1.1 K/mm3 (0.7-4.5); Mean Corpuscular Hemoglobin 21.5 pg (27.0-31.2); Mean Corpuscular Volume 69.5 fl (81-99); Monocytes # 0.5 K/mm3 (0.1-1.0); Monocytes % 7.1 % (1.7-9.3); Neutrophils # 5.2 K/mm3 (1.8-7.8); Nucleated Red Blood Cells # 0 10^3/uL; Nucleated Red Blood Cells % 0 %; Platelet Count 71 K/mm3 (142-424); Red Blood Count 4.69 M/mm3 (4.20-5.40); Red Cell Distribution Width 17.8 % (11.5-17.5)
[2024-09-09 07:57] LABS: Valproic Acid, (Depakene) 32.4 ug/ml (50-100)
[2024-09-09 08:47] LABS: Chloride 108 mmol/L (98-107); Sodium 145 mmol/L (136-145)
[2024-09-09 08:50] LABS: Blood Urea Nitrogen 37 mg/dl (7-17); Calcium 9.6 mg/dl (8.4-10.2); Carbon Dioxide 34 mmol/L (22.0-30.0); Estimated Glomerular Filt Rate 70 ml/min (>60); GFR (African American) 85 ML/MIN (>60); Iron 79 ug/dL (37-170)
[2024-09-09 08:55] LABS: Glucose 49 mg/dl (74-100)
[2024-09-09 09:00] LABS: Total Iron Binding Capacity 301 ug/dL (265-497)
[2024-09-09 09:26] LABS: Ferritin 183 ng/ml (11.1-264)
== END 2024-09-09 23:59 | disposition home or self-care (01) ==
PROVIDERS: PCP Family Medicine; Visit Provider Family Medicine
DX: D64.9 Anemia, unspecified (principal)
CPT/HCPCS: 36415; 80048; 80164; 82728; 83540; 83550; 85025

== ENCOUNTER 2024-09-11 07:29 | Outpatient (CLI) | payer MEDICARE, MEDICAID, SELFPAY ==
[2024-09-11 08:32] LABS: Blood Urea Nitrogen 31 mg/dl (7-17); Calcium 9.4 mg/dl (8.4-10.2); Carbon Dioxide 36 mmol/L (22.0-30.0); Chloride 107 mmol/L (98-107); Estimated Glomerular Filt Rate 70 ml/min (>60); GFR (African American) 85 ML/MIN (>60); Glucose 73 mg/dl (74-100); Sodium 144 mmol/L (136-145)
== END 2024-09-11 23:59 | disposition home or self-care (01) ==
PROVIDERS: PCP Nurse Practitioner Family; Visit Provider Nurse Practitioner Family
DX: E87.6 Hypokalemia (principal)
CPT/HCPCS: 36415; 80048

== ENCOUNTER 2024-09-12 13:26 | Inpatient (IN) | payer MEDICARE, MEDICAID, SELFPAY ==
[2024-09-12] VITALS (53 sets, daily range): BP systolic 49–167; BP diastolic 25–144; PULSE 59–98; RESP 12–24; TEMP 32.2–37.2; O2SAT 94–100; BMI 20.6; BMI 20.9
--- NOTE | 2024-09-12 13:36 | ECG_ITS ---
APPROVED REPORT Exam: Resting ECG HR:73 bpm ECG Measurements Heart Rate 73 AXES MD 172 P 64 QRSd 94 QRS 53 QT 400 T 95 QTc 426 Conclusion SINUS RHYTHM WITH OCCASIONAL VENTRICULAR PREMATURE COMPLEXES NONSPECIFIC ST & T-WAVE ABNORMALITY BORDERLINE ECG Significant chatter precludes diagnostic ability of this EKG Electronically signed by : RANDAL AGUAYO, 09/23/2024 07:45:03
--- NOTE | 2024-09-12 13:47 | HMH.EDGENADL ---
Discharge Plan Disposition Patient Disposition: Admitted Condition: Critical Clinical Impressions Clinical Impression: Septic shock, Hypothyroidism, Pneumonia, Acute hypoxic respiratory failure Discharge ED Provider: Tory Brandon General Adult HPI <Son Foret MD - Last Filed: 09/12/24 15:12> General Stated complaint: AMS Time Seen by Provider: 09/12/24 13:30 History of Present Illness HPI narrative: Please note that above description of symptoms, in this electronic medical record under categorization of recalled from ER triage doctor by RN are reflective of an initial nursing assessment, however, is not reflective of my full history and physical exam that was personally taken and clarified. Consequentially, this preceding description of symptoms, which may include the patient's categorized chief complaint in the EMR, do not reflect my personal clinical impression, and the ultimate description of history of present illness and patient stated complaints should be deferred to this section of the note. Unless stated otherwise or congruent with this section of the note, additional signs, symptoms, or incongruence should be interpreted as inaccurate with my clinical impression. Related Data Home Medications ?Medication ?Instructions ?Recorded ?Confirmed amiodarone 200 mg tablet 200 mg PO DAILY 10/25/23 09/12/24 apixaban 5 mg tablet 5 mg PO BID 10/25/23 09/12/24 melatonin 5 mg capsule 5 mg PO HS 10/25/23 09/12/24 polyethylene glycol 3350 17 17 g PO DAILY 10/25/23 09/12/24 gram/dose oral powder acetaminophen 500 mg tablet 500 mg PO Q6H PRN Pain 03/12/24 09/12/24 clonidine HCl 0.1 mg tablet 0.1 mg PO TID 05/21/24 09/12/24 mirtazapine 15 mg tablet (Remeron) 15 mg PO HS 06/26/24 09/12/24 buspirone 5 mg tablet 5 mg PO TID 07/30/24 09/12/24 ferrous sulfate 325 mg (65 mg 325 mg PO DAILY 07/30/24 09/12/24 iron) tablet (FeroSul) lansoprazole 30 mg capsule,delayed 30 mg PO DAILY 07/30/24 09/12/24 release olanzapine 5 mg tablet (Zyprexa) 7.5 mg PO BID 09/04/24 09/12/24 divalproex 125 mg capsule,delayed 250 mg PO QID 09/10/24 09/12/24 release sprinkle (Depakote Sprinkles) Previous Rx's ?Medication ?Instructions ?Recorded levothyroxine 25 mcg tablet 25 mcg PO DAILY #90 tabs 04/16/24 hydrocodone 5 mg-acetaminophen 325 1 tab PO TID #90 tabs 07/31/24 mg tablet Allergies Allergy/AdvReac Type Severity Reaction Status Date / Time No Known Allergies Allergy Verified 09/04/24 14:39 [facility] <Son Forte MD - Last Filed: 09/12/24 15:12> [facility] Disclaimer: The information contained in this section may have been updated after the patient was seen, as this information can be updated by other users. Medical History Hypothyroid Acute renal failure Hypothermia Sepsis Acute hypernatremia Pancreatitis Pneumonia Cerebrovascular disease, unspecified Unable to care for self Blindness Atrial fibrillation Seizure disorder Irritation of right eye Hypomagnesemia Hypokalemia Hypernatremia Inadequate oral intake Swallowing difficulty Dementia Intellectual disability Encephalopathy Right ovarian enlargement Transaminitis Cellulitis and abscess of face Facial swelling Thrombocytopenia History of Klebsiella pneumonia Chronic heart failure with preserved ejection fraction (HFpEF) Anemia Hypertension Severe sepsis Hypoglycemia Hypothermia Family History (Updated 09/12/24 @ 19:00 by Amaris Bailey RN) Other No significant family history Social History (Updated 09/12/24 @ 19:00 by Amaris Bailey RN) Smoking Status: Unknown if ever smoked alcohol intake: former current occupational status: unemployed Travel in the last 8 weeks?: None Contact w/someone who lives/traveled outside [place] past 30 days?: No Exposure to someone with infectious disease in past 14 days?: No Do you have a fever (greater than 100.4 F or 38 C)?: No Have you tested positive for COVID-19?: No Exposed to someone with COVID-19 in past 14 days?: No Do you have a sore throat?: No Do you have a cough?: No Do you have any weakness?: No Are you experiencing any nausea/vomitting?: No Do you have any diarrhea?: No Are you experiencing any unusual bleeding?: No Do you have any muscle aches/pain?: No Do you have any abdominal pain?: No Are you experiencing loss of taste or smell?: No Other Medical History Have you received the Pneumonia Vaccine: Yes (03/23/21) <Son Forte MD - Last Filed: 09/12/24 15:12> ROS Obtained: Yes unobtainable due to mental status Physical Exam <Son Forte MD - Last Filed: 09/12/24 15:12> General General appearance: alert Head Head exam: atraumatic and normocephalic Eye Eye exam: Present normal appearance, PERRL and EOMI Neck Neck exam: Present normal inspection, full ROM and trachea midline Respiratory Respiratory exam: Present normal lung sounds bilaterally; Absent respiratory distress, wheezes, stridor, accessory muscle use or prolonged expiratory phase Cardiovascular Cardiovascular exam: Present regular rate, normal rhythm and other (Pulses equal symmetric in upper and lower extremities) Abdominal Exam Abdominal exam: Present soft; Absent distention, tenderness, guarding, rebound, rigidity or pulsatile mass Extremities Exam Extremities exam: Absent edema Neurological Exam Neurological exam: Present alert; Absent oriented X3 Skin Skin exam: Present warm and dry; Absent diaphoresis or erythema Medical Decision Making <Son Forte MD - Last Filed: 09/12/24 15:12> Medical Records Medical records reviewed: Yes I reviewed the patient's medical records. Screening: Per USPSTF and CDC recommendations, given the prevalence of disease in our region, it is our hospital?s policy to screen for HIV and viral Hepatitis for all patients aged 18 and over and those with ongoing risk factors. Baldo Inquiry Pt receiving controlled substance: No Baldo was queried for this patient: No Vital Signs: 09/12/24 13:55 09/12/24 13:55 09/12/24 14:05 Temperature 90 F L 90 F L Temperature Source Rectal Rectal Pulse Rate 74 69 Pulse Rate [Left] 62 Respiratory Rate 15 16 14 Blood Pressure 120/72 120/87 Blood Pressure [Right Arm] 119/92 H Blood Pressure Mean Blood Pressure Mean [Right Arm] 101 Blood Pressure Source Automatic Cuff Blood Pressure Source [Right Arm] Automatic Cuff Blood Pressure Position Supine Blood Pressure Position [Right Arm] Supine 02 Sat by Pulse Oximetry 94 L 94 L 95 Oxygen Delivery Method Room Air Room Air Room Air 09/12/24 14:31 09/12/24 15:01 09/12/24 15:10 Temperature Temperature Source Pulse Rate 72 59 L 66 Pulse Rate [Left] Respiratory Rate 24 14 Blood Pressure 167/117 H 50/26 L 54/28 L Blood Pressure [Right Arm] Blood Pressure Mean 34 Blood Pressure Mean [Right Arm] Blood Pressure Source Blood Pressure Source [Right Arm] Blood Pressure Position Blood Pressure Position [Right Arm] 02 Sat by Pulse Oximetry 96 97 98 Oxygen Delivery Method Room Air Room Air Room Air 09/12/24 15:15 09/12/24 15:21 09/12/24 15:23 Temperature 91.8 F L Temperature Source Core Pulse Rate 77 60 62 Pulse Rate [Left] Respiratory Rate 14 20 13 Blood Pressure 70/50 L 60/29 L 64/34 L Blood Pressure [Right Arm] Blood Pressure Mean Blood Pressure Mean [Right Arm] Blood Pressure Source Manual Cuff/ Auscultation Blood Pressure Source [Right Arm] Blood Pressure Position Supine Blood Pressure Position [Right Arm] 02 Sat by Pulse Oximetry 97 98 99 Oxygen Delivery Method Room Air Room Air Room Air 09/12/24 15:24 09/12/24 15:25 09/12/24 15:26 Temperature Temperature Source Pulse Rate 62 69 65 Pulse Rate [Left] Respiratory Rate 12 22 14 Blood Pressure 62/45 L 60/30 L 56/30 L Blood Pressure [Right Arm] Blood Pressure Mean Blood Pressure Mean [Right Arm] Blood Pressure Source Blood Pressure Source [Right Arm] Blood Pressure Position Blood Pressure Position [Right Arm] 02 Sat by Pulse Oximetry 100 96 98 Oxygen Delivery Method Room Air 09/12/24 15:40 09/12/24 15:46 09/12/24 15:50 Temperature Temperature Source Pulse Rate 68 67 69 Pulse Rate [Left] Respiratory Rate 15 13 14 Blood Pressure 127/44 L 123/61 114/52 L Blood Pressure [Right Arm] Blood Pressure Mean Blood Pressure Mean [Right Arm] Blood Pressure Source Blood Pressure Source [Right Arm] Blood Pressure Position Blood Pressure Position [Right Arm] 02 Sat by Pulse Oximetry 100 100 100 Oxygen Delivery Method Room Air Room Air Room Air 09/12/24 15:55 09/12/24 16:00 09/12/24 16:00 Temperature 92.7 F L Temperature Source Core Pulse Rate 67 68 Pulse Rate [Left] Respiratory Rate 13 13 Blood Pressure 110/49 L 105/54 L Blood Pressure [Right Arm] Blood Pressure Mean Blood Pressure Mean [Right Arm] Blood Pressure Source Blood Pressure Source [Right Arm] Blood Pressure Position Blood Pressure Position [Right Arm] 02 Sat by Pulse Oximetry 100 100 Oxygen Delivery Method Room Air Room Air 09/12/24 16:05 09/12/24 16:10 09/12/24 16:15 Temperature Temperature Source Pulse Rate 68 67 68 Pulse Rate [Left] Respiratory Rate 13 14 14 Blood Pressure 106/52 L 104/48 L 104/47 L Blood Pressure [Right Arm] Blood Pressure Mean Blood Pressure Mean [Right Arm] Blood Pressure Source Blood Pressure Source [Right Arm] Blood Pressure Position Blood Pressure Position [Right Arm] 02 Sat by Pulse Oximetry 100 100 100 Oxygen Delivery Method Room Air Room Air Room Air 09/12/24 16:21 09/12/24 16:25 09/12/24 16:30 Temperature Temperature Source Pulse Rate 77 73 70 Pulse Rate [Left] Respiratory Rate 12 15 15 Blood Pressure 137/61 148/122 H 87/45 L Blood Pressure [Right Arm] Blood Pressure Mean Blood Pressure Mean [Right Arm] Blood Pressure Source Blood Pressure Source [Right Arm] Blood Pressure Position Blood Pressure Position [Right Arm] 02 Sat by Pulse Oximetry 99 99 100 Oxygen Delivery Method Room Air Room Air Room Air 09/12/24 16:30 09/12/24 16:35 09/12/24 16:40 Temperature 93.2 F L Temperature Source Core Pulse Rate 67 69 Pulse Rate [Left] Respiratory Rate 12 15 Blood Pressure 80/41 L 99/45 L Blood Pressure [Right Arm] Blood Pressure Mean Blood Pressure Mean [Right Arm] Blood Pressure Source Blood Pressure Source [Right Arm] Blood Pressure Position Blood Pressure Position [Right Arm] 02 Sat by Pulse Oximetry 100 100 Oxygen Delivery Method Room Air Room Air 09/12/24 16:45 09/12/24 16:50 09/12/24 16:55 Temperature Temperature Source Pulse Rate 71 70 92 H Pulse Rate [Left] Respiratory Rate 14 13 15 Blood Pressure 98/44 L 91/45 L 73/36 L Blood Pressure [Right Arm] Blood Pressure Mean Blood Pressure Mean [Right Arm] Blood Pressure Source Blood Pressure Source [Right Arm] Blood Pressure Position Blood Pressure Position [Right Arm] 02 Sat by Pulse Oximetry 99 98 95 Oxygen Delivery Method Room Air Room Air Room Air 09/12/24 17:00 09/12/24 17:00 09/12/24 17:05 Temperature 93.6 F L Temperature Source Core Pulse Rate 90 91 H Pulse Rate [Left] Respiratory Rate 12 14 Blood Pressure 70/43 L 85/45 L Blood Pressure [Right Arm] Blood Pressure Mean Blood Pressure Mean [Right Arm] Blood Pressure Source Blood Pressure Source [Right Arm] Blood Pressure Position Blood Pressure Position [Right Arm] 02 Sat by Pulse Oximetry 96 95 Oxygen Delivery Method Room Air Room Air 09/12/24 17:17 09/12/24 17:19 09/12/24 17:22 Temperature Temperature Source Pulse Rate 87 86 82 Pulse Rate [Left] Respiratory Rate 17 19 13 Blood Pressure 65/39 L 129/41 L 115/96 H Blood Pressure [Right Arm] Blood Pressure Mean Blood Pressure Mean [Right Arm] Blood Pressure Source Blood Pressure Source [Right Arm] Blood Pressure Position Blood Pressure Position [Right Arm] 02 Sat by Pulse Oximetry 95 97 96 Oxygen Delivery Method Room Air Room Air Room Air 09/12/24 17:25 09/12/24 17:36 09/12/24 17:37 Temperature Temperature Source Pulse Rate 77 91 H 64 Pulse Rate [Left] Respiratory Rate 12 19 21 Blood Pressure 146/68 H 162/144 H 129/48 L Blood Pressure [Right Arm] Blood Pressure Mean Blood Pressure Mean [Right Arm] Blood Pressure Source Blood Pressure Source [Right Arm] Blood Pressure Position Blood Pressure Position [Right Arm] 02 Sat by Pulse Oximetry 96 97 97 Oxygen Delivery Method Room Air Room Air Room Air 09/12/24 17:41 09/12/24 17:45 09/12/24 17:50 Temperature 94.5 F L Temperature Source Core Pulse Rate 73 Pulse Rate [Left] 83 Respiratory Rate 21 Blood Pressure 122/48 L Blood Pressure [Right Arm] Blood Pressure Mean Blood Pressure Mean [Right Arm] Blood Pressure Source Blood Pressure Source [Right Arm] Blood Pressure Position Blood Pressure Position [Right Arm] 02 Sat by Pulse Oximetry 96 100 Oxygen Delivery Method Room Air Room Air 09/12/24 18:10 Temperature 96.3 F L Temperature Source Core Pulse Rate 84 Pulse Rate [Left] Respiratory Rate 18 Blood Pressure 122/48 L Blood Pressure [Right Arm] Blood Pressure Mean Blood Pressure Mean [Right Arm] Blood Pressure Source Automatic Cuff Blood Pressure Source [Right Arm] Blood Pressure Position Supine Blood Pressure Position [Right Arm] 02 Sat by Pulse Oximetry Oxygen Delivery Method Room Air Lab Data Lab Results 09/12/24 13:50: Urine Color Yellow, Urine Appearance Cloudy, Urine pH 6.0, Ur Specific [place] 1.020, Urine Protein Trace, Urine Glucose (UA) Negative, Urine Ketones Negative, Urine Blood Negative, Urine Nitrate Negative, Urine Bilirubin Negative, Urine Urobilinogen 1.0, Ur Leukocyte Esterase Trace, Urine RBC None, Urine WBC 10-20, Ur Squamous Epith Cells 3-5, Urine Bacteria 4+ 09/12/24 14:00: VBG pH 7.35, VBG pCO2 40.3, VBG pO2 41.4 H, VBG HCO3 22.0 L, VBG Total CO2 23.2, VBG O2 Saturation 75.8 H, VBG Base Excess -3.6 L, VBG Lactic Acid 2.2 H 09/12/24 14:43: Sodium 143, Potassium 4.8, Chloride 105, Carbon Dioxide 36 H, Anion Gap 6.8, BUN 33 H, Creatinine 0.70, Estimated Creat Clear 44, Estimated GFR 82, Est GFR ( Amer) 99, Glucose 220 H, Lactate 3.3 H, Calcium 9.2, Magnesium 2.2, Total Bilirubin 0.4, AST 33, ALT 28, Alkaline Phosphatase 100, Troponin I < 0.01, Total Protein 6.8, Albumin 3.5, Globulin 3.3 H, Albumin/Globulin Ratio 1.1, Lipase 18 L, Procalcitonin 0.589, TSH 84.40 H, Thyroxine (T4) 4.6 L 09/12/24 16:34: WBC 9.5, RBC 4.31, Hgb 9.2 L, Hct 29.7 L, MCV 68.9 L, MCH 21.3 L, MCHC 31.0 L, RDW 17.6 H, Plt Count 71 L, MPV TNP, Neut % (Auto) 87.9 H, Lymph % (Auto) 7.2 L, [place] % (Auto) 4.3, Eos % (Auto) 0.1, Baso % (Auto) 0.2, Neut # (Auto) 8.3 H, Lymph # (Auto) 0.7, [place] # (Auto) 0.4, Eos # (Auto) 0.0, Baso # (Auto) 0.0, PT 10.3, INR 0.91, APTT 25.2, Troponin I < 0.01 09/12/24 16:34 09/12/24 14:43 Orders (Tests/Meds): ED MEDICATIONS Generic Name Dose Route Start Last Admin Trade Name Vira PRN Reason Stop Dose Admin Hydrocortisone Sodium Succinate 50 mg 09/12/24 23:30 09/12/24 23:33 Hydrocortisone Sod Succinate 100mg Vial IV 10/12/24 23:29 50 mg Q6H STAR Administration Norepinephrine/Dextrose 8 mg in 250 mls @ 3.75 mls/hr 09/12/24 15:28 09/12/24 23:38 Levophed 8mg/250ml-D5w Premix IV 10/12/24 15:27 4 mcg/min .Q24H STAR 7.5 mls/hr Infusion Protocol 2 MCG/MIN Cefepime HCl 2 gm/ Sodium 100 mls @ 200 mls/hr 09/13/24 04:00 Chloride IV 09/23/24 03:59 Q12H STAR Vancomycin HCl 500 mg/ Sodium 250 mls @ 125 mls/hr 09/13/24 04:00 Chloride IV 09/23/24 03:59 Q12H STAR Levothyroxine Sodium 200 mcg 09/12/24 17:21 09/12/24 17:25 Levothyroxine Sodium 100 Mcg Vial IV 09/12/24 17:22 200 mcg ONCE ONE Administration Levothyroxine Sodium 100 mcg 09/13/24 07:00 Levothyroxine Sodium 100 Mcg Vial IV 09/15/24 07:01 DAILYDM STAR Miscellaneous 1 each 09/12/24 21:45 09/12/24 21:43 Vancomycin Consult Request NOTAPPLIC 10/12/24 21:44 1 each CONSULT PH[facility]Y [facility] Administration Discontinued Medications Generic Name Dose Route Start Last Admin Trade Name Vira PRN Reason Stop Dose Admin Dextrose 50 ml 09/12/24 21:15 09/12/24 20:35 Dextrose 50% 50ml Syringe (Crash Cart) IV 09/12/24 21:16 50 ml ONCE ONE Administration Droperidol 2.5 mg 09/12/24 14:35 09/12/24 14:59 Droperidol 5mg/2ml Vial IV 09/12/24 14:36 2.5 mg ONCE ONE Administration Sodium Chloride 1,000 mls @ 999 mls/hr 09/12/24 13:57 09/12/24 14:57 Sod Chlor 0.9% 1000ml Bag IV 09/12/24 14:57 999 mls/hr .Q1H1M ONE Administration Cefepime HCl 2 gm/ Sodium 100 mls @ 200 mls/hr 09/12/24 14:34 09/12/24 15:00 Chloride IV 09/12/24 15:03 200 mls/hr ONCE ONE Administration Vancomycin HCl 1,000 mg/ 250 mls @ 125 mls/hr 09/12/24 14:45 09/12/24 16:09 Sodium Chloride IV 09/12/24 16:44 125 mls/hr ONCE ONE Administration Lactated Ringer's 1,710 mls @ 855 mls/hr 09/12/24 15:11 09/12/24 16:09 Lactated Ringer's 1000 Ml Bag 30 ml/kg infuse over 2 hr (1710 ml) 09/12/24 17:10 855 mls/hr IV Administration .Q2H ONE Miscellaneous 1 each 09/12/24 14:45 Vancomycin Consult Request NOTAPPLIC 10/12/24 14:44 CONSULT PHARMACY [facility] Category Date Time Status XR chest portable Stat Exams 09/12/24 13:57 Completed Complete Blood Count Auto Diff AMLAB Lab 09/13/24 06:00 Ordered Complete Blood Count Auto Diff Stat Lab 09/12/24 16:34 Completed Comprehensive Metabolic Panel AMLAB Lab 09/13/24 06:00 Ordered Comprehensive Metabolic Panel Stat Lab 09/12/24 14:43 Completed Free Valproic Acid (Depakote) Routine Lab 09/12/24 16:34 Received Lactic Acid Follow Up (RFLX 1) Stat Lab 09/12/24 18:33 Completed Lactic Acid Stat Lab 09/12/24 14:43 Completed Lipase Stat Lab 09/12/24 14:43 Completed Magnesium AMLAB Lab 09/13/24 06:00 Ordered Magnesium Stat Lab 09/12/24 14:43 Completed PT INR [Prothrombin Time INR] Stat Lab 09/12/24 16:34 Completed PTT [Activated Partial Thrombo Time] Stat Lab 09/12/24 16:34 Completed Procalcitonin Stat Lab 09/12/24 14:43 Completed T4 (Thyroxine) Stat Lab 09/12/24 14:43 Completed TSH [Thyroid Stimulating Hormone] Stat Lab 09/12/24 14:43 Completed Troponin I Q3H Lab 09/12/24 16:34 Completed Troponin I Q3H Lab 09/12/24 20:40 Completed Troponin I Stat Lab 09/12/24 14:43 Completed Urinalysis and Microscopic Stat Lab 09/12/24 13:50 Completed Blood Culture Stat Micro 09/12/24 14:43 Received CRE Screen Routine Micro 09/12/24 18:33 Received Urine Culture Stat Micro 09/12/24 13:50 Received Venous Blood Gas Stat RT 09/12/24 14:00 Completed Medical Decision Narrative: 74-year-old Fe male who hypertension, hyperlipidemia, CVA, dementia, atrial fibrillation, CKD, among others presenting with hemoptysis. Patient was at the [facility] just prior to this visit, started hacking, coughing, brought up large light red mucous plug versus vomited. Just got done eating red ice cream, unknown if this is related. EMS picked her up, stated that she did this 1 more time prior to arrival, did not do it since. Per EMS, [facility] also states patient feels cold to the touch. No fevers were measured there. On arrival, at neurologic baseline. Crying out, but this is normal, per EMS and since my previous interaction with her. Largely not responding to me, but she is alert, eyes open, pupils 3 mm and reactive. Lungs are clear, abdomen is soft, nontender, nondistended. No lower extremity edema. Differential includes pneumonia, bronchitis, sepsis, PE, urinary tract infection, among others. Patient placed on continuous cardiac monitoring and continuous pulse ox with initial blood pressure 120/72, heart rate 74, saturation 94% on room air. Independent interpretation of EKG shows largely nondiagnostic exam. Appears ventricular rate to be around 80 bpm. [place] interval 172, QRS 94, QTc 426, no obvious acute ischemic change, but difficult to discern. Patient was given fluids and droperidol for symptomatic management and correction of underlying abnormalities. Patient also hypothermic, empirically antibiosed. Workup independently interpreted and significant for VBG with normal pH, mildly decreased bicarb at 22. Lactate 3.3 with catheterized sample urinalysis with bacteria, white blood cells consistent with urinary tract infection versus colonization. Patient will need to be admitted for sepsis management, likely, but prior to this, care note off oncoming physician. Link Trainer Maintenance Man disclaimer Much of this encounter note is an electronic spd manager spoken language to printed text. Electronic spd manager of the spoken language may permit errors. Although I have reviewed the note, some errors may still exist. <Tory Brandon, DO - Last Filed: 09/13/24 00:43> Vital Signs: 09/12/24 13:55 09/12/24 13:55 09/12/24 14:05 Temperature 90 F L 90 F L Temperature Source Rectal Rectal Pulse Rate 74 69 Pulse Rate [Left] 62 Respiratory Rate 15 16 14 Blood Pressure 120/72 120/87 Blood Pressure [Right Arm] 119/92 H Blood Pressure Mean Blood Pressure Mean [Right Arm] 101 Blood Pressure Source Automatic Cuff Blood Pressure Source [Right Arm] Automatic Cuff Blood Pressure Position Supine Blood Pressure Position [Right Arm] Supine 02 Sat by Pulse Oximetry 94 L 94 L 95 Oxygen Delivery Method Room Air Room Air Room Air 09/12/24 14:31 09/12/24 15:01 09/12/24 15:10 Temperature Temperature Source Pulse Rate 72 59 L 66 Pulse Rate [Left] Respiratory Rate 24 14 Blood Pressure 167/117 H 50/26 L 54/28 L Blood Pressure [Right Arm] Blood Pressure Mean 34 Blood Pressure Mean [Right Arm] Blood Pressure Source Blood Pressure Source [Right Arm] Blood Pressure Position Blood Pressure Position [Right Arm] 02 Sat by Pulse Oximetry 96 97 98 Oxygen Delivery Method Room Air Room Air Room Air 09/12/24 15:15 09/12/24 15:21 09/12/24 15:23 Temperature 91.8 F L Temperature Source Core Pulse Rate 77 60 62 Pulse Rate [Left] Respiratory Rate 14 20 13 Blood Pressure 70/50 L 60/29 L 64/34 L Blood Pressure [Right Arm] Blood Pressure Mean Blood Pressure Mean [Right Arm] Blood Pressure Source Manual Cuff/ Auscultation Blood Pressure Source [Right Arm] Blood Pressure Position Supine Blood Pressure Position [Right Arm] 02 Sat by Pulse Oximetry 97 98 99 Oxygen Delivery Method Room Air Room Air Room Air 09/12/24 15:24 09/12/24 15:25 09/12/24 15:26 Temperature Temperature Source Pulse Rate 62 69 65 Pulse Rate [Left] Respiratory Rate 12 22 14 Blood Pressure 62/45 L 60/30 L 56/30 L Blood Pressure [Right Arm] Blood Pressure Mean Blood Pressure Mean [Right Arm] Blood Pressure Source Blood Pressure Source [Right Arm] Blood Pressure Position Blood Pressure Position [Right Arm] 02 Sat by Pulse Oximetry 100 96 98 Oxygen Delivery Method Room Air 09/12/24 15:40 09/12/24 15:46 09/12/24 15:50 Temperature Temperature Source Pulse Rate 68 67 69 Pulse Rate [Left] Respiratory Rate 15 13 14 Blood Pressure 127/44 L 123/61 114/52 L Blood Pressure [Right Arm] Blood Pressure Mean Blood Pressure Mean [Right Arm] Blood Pressure Source Blood Pressure Source [Right Arm] Blood Pressure Position Blood Pressure Position [Right Arm] 02 Sat by Pulse Oximetry 100 100 100 Oxygen Delivery Method Room Air Room Air Room Air 09/12/24 15:55 09/12/24 16:00 09/12/24 16:00 Temperature 92.7 F L Temperature Source Core Pulse Rate 67 68 Pulse Rate [Left] Respiratory Rate 13 13 Blood Pressure 110/49 L 105/54 L Blood Pressure [Right Arm] Blood Pressure Mean Blood Pressure Mean [Right Arm] Blood Pressure Source Blood Pressure Source [Right Arm] Blood Pressure Position Blood Pressure Position [Right Arm] 02 Sat by Pulse Oximetry 100 100 Oxygen Delivery Method Room Air Room Air 09/12/24 16:05 09/12/24 16:10 09/12/24 16:15 Temperature Temperature Source Pulse Rate 68 67 68 Pulse Rate [Left] Respiratory Rate 13 14 14 Blood Pressure 106/52 L 104/48 L 104/47 L Blood Pressure [Right Arm] Blood Pressure Mean Blood Pressure Mean [Right Arm] Blood Pressure Source Blood Pressure Source [Right Arm] Blood Pressure Position Blood Pressure Position [Right Arm] 02 Sat by Pulse Oximetry 100 100 100 Oxygen Delivery Method Room Air Room Air Room Air 09/12/24 16:21 09/12/24 16:25 09/12/24 16:30 Temperature Temperature Source Pulse Rate 77 73 70 Pulse Rate [Left] Respiratory Rate 12 15 15 Blood Pressure 137/61 148/122 H 87/45 L Blood Pressure [Right Arm] Blood Pressure Mean Blood Pressure Mean [Right Arm] Blood Pressure Source Blood Pressure Source [Right Arm] Blood Pressure Position Blood Pressure Position [Right Arm] 02 Sat by Pulse Oximetry 99 99 100 Oxygen Delivery Method Room Air Room Air Room Air 09/12/24 16:30 09/12/24 16:35 09/12/24 16:40 Temperature 93.2 F L Temperature Source Core Pulse Rate 67 69 Pulse Rate [Left] Respiratory Rate 12 15 Blood Pressure 80/41 L 99/45 L Blood Pressure [Right Arm] Blood Pressure Mean Blood Pressure Mean [Right Arm] Blood Pressure Source Blood Pressure Source [Right Arm] Blood Pressure Position Blood Pressure Position [Right Arm] 02 Sat by Pulse Oximetry 100 100 Oxygen Delivery Method Room Air Room Air 09/12/24 16:45 09/12/24 16:50 09/12/24 16:55 Temperature Temperature Source Pulse Rate 71 70 92 H Pulse Rate [Left] Respiratory Rate 14 13 15 Blood Pressure 98/44 L 91/45 L 73/36 L Blood Pressure [Right Arm] Blood Pressure Mean Blood Pressure Mean [Right Arm] Blood Pressure Source Blood Pressure Source [Right Arm] Blood Pressure Position Blood Pressure Position [Right Arm] 02 Sat by Pulse Oximetry 99 98 95 Oxygen Delivery Method Room Air Room Air Room Air 09/12/24 17:00 09/12/24 17:00 09/12/24 17:05 Temperature 93.6 F L Temperature Source Core Pulse Rate 90 91 H Pulse Rate [Left] Respiratory Rate 12 14 Blood Pressure 70/43 L 85/45 L Blood Pressure [Right Arm] Blood Pressure Mean Blood Pressure Mean [Right Arm] Blood Pressure Source Blood Pressure Source [Right Arm] Blood Pressure Position Blood Pressure Position [Right Arm] 02 Sat by Pulse Oximetry 96 95 Oxygen Delivery Method Room Air Room Air 09/12/24 17:17 09/12/24 17:19 09/12/24 17:22 Temperature Temperature Source Pulse Rate 87 86 82 Pulse Rate [Left] Respiratory Rate 17 19 13 Blood Pressure 65/39 L 129/41 L 115/96 H Blood Pressure [Right Arm] Blood Pressure Mean Blood Pressure Mean [Right Arm] Blood Pressure Source Blood Pressure Source [Right Arm] Blood Pressure Position Blood Pressure Position [Right Arm] 02 Sat by Pulse Oximetry 95 97 96 Oxygen Delivery Method Room Air Room Air Room Air 09/12/24 17:25 09/12/24 17:36 09/12/24 17:37 Temperature Temperature Source Pulse Rate 77 91 H 64 Pulse Rate [Left] Respiratory Rate 12 19 21 Blood Pressure 146/68 H 162/144 H 129/48 L Blood Pressure [Right Arm] Blood Pressure Mean Blood Pressure Mean [Right Arm] Blood Pressure Source Blood Pressure Source [Right Arm] Blood Pressure Position Blood Pressure Position [Right Arm] 02 Sat by Pulse Oximetry 96 97 97 Oxygen Delivery Method Room Air Room Air Room Air 09/12/24 17:41 09/12/24 17:45 09/12/24 17:50 Temperature 94.5 F L Temperature Source Core Pulse Rate 73 Pulse Rate [Left] 83 Respiratory Rate 21 Blood Pressure 122/48 L Blood Pressure [Right Arm] Blood Pressure Mean Blood Pressure Mean [Right Arm] Blood Pressure Source Blood Pressure Source [Right Arm] Blood Pressure Position Blood Pressure Position [Right Arm] 02 Sat by Pulse Oximetry 96 100 Oxygen Delivery Method Room Air Room Air 09/12/24 18:10 Temperature 96.3 F L Temperature Source Core Pulse Rate 84 Pulse Rate [Left] Respiratory Rate 18 Blood Pressure 122/48 L Blood Pressure [Right Arm] Blood Pressure Mean Blood Pressure Mean [Right Arm] Blood Pressure Source Automatic Cuff Blood Pressure Source [Right Arm] Blood Pressure Position Supine Blood Pressure Position [Right Arm] 02 Sat by Pulse Oximetry Oxygen Delivery Method Room Air Lab Data Lab Results 09/12/24 13:50: Urine Color Yellow, Urine Appearance Cloudy, Urine pH 6.0, Ur Specific [place] 1.020, Urine Protein Trace, Urine Glucose (UA) Negative, Urine Ketones Negative, Urine Blood Negative, Urine Nitrate Negative, Urine Bilirubin Negative, Urine Urobilinogen 1.0, Ur Leukocyte Esterase Trace, Urine RBC None, Urine WBC 10-20, Ur Squamous Epith Cells 3-5, Urine Bacteria 4+ 09/12/24 14:00: VBG pH 7.35, VBG pCO2 40.3, VBG pO2 41.4 H, VBG HCO3 22.0 L, VBG Total CO2 23.2, VBG O2 Saturation 75.8 H, VBG Base Excess -3.6 L, VBG Lactic Acid 2.2 H 09/12/24 14:43: Sodium 143, Potassium 4.8, Chloride 105, Carbon Dioxide 36 H, Anion Gap 6.8, BUN 33 H, Creatinine 0.70, Estimated Creat Clear 44, Estimated GFR 82, Est GFR ( Amer) 99, Glucose 220 H, Lactate 3.3 H, Calcium 9.2, Magnesium 2.2, Total Bilirubin 0.4, AST 33, ALT 28, Alkaline Phosphatase 100, Troponin I < 0.01, Total Protein 6.8, Albumin 3.5, Globulin 3.3 H, Albumin/Globulin Ratio 1.1, Lipase 18 L, Procalcitonin 0.589, TSH 84.40 H, Thyroxine (T4) 4.6 L 09/12/24 16:34: WBC 9.5, RBC 4.31, Hgb 9.2 L, Hct 29.7 L, MCV 68.9 L, MCH 21.3 L, MCHC 31.0 L, RDW 17.6 H, Plt Count 71 L, MPV TNP, Neut % (Auto) 87.9 H, Lymph % (Auto) 7.2 L, [place] % (Auto) 4.3, Eos % (Auto) 0.1, Baso % (Auto) 0.2, Neut # (Auto) 8.3 H, Lymph # (Auto) 0.7, [place] # (Auto) 0.4, Eos # (Auto) 0.0, Baso # (Auto) 0.0, PT 10.3, INR 0.91, APTT 25.2, Troponin I < 0.01 Orders (Tests/Meds): ED MEDICATIONS Generic Name Dose Route Start Last Admin Trade Name Freq PRN Reason Stop Dose Admin Hydrocortisone Sodium Succinate 50 mg 09/12/24 23:30 09/12/24 23:33 Hydrocortisone Sod Succinate 100mg Vial IV 10/12/24 23:29 50 mg Q6H STAR Administration Norepinephrine/Dextrose 8 mg in 250 mls @ 3.75 mls/hr 09/12/24 15:28 09/12/24 23:38 Levophed 8mg/250ml-D5w Premix IV 10/12/24 15:27 4 mcg/min .Q24H STAR 7.5 mls/hr Infusion Protocol 2 MCG/MIN Cefepime HCl 2 gm/ Sodium 100 mls @ 200 mls/hr 09/13/24 04:00 Chloride IV 09/23/24 03:59 Q12H STAR Vancomycin HCl 500 mg/ Sodium 250 mls @ 125 mls/hr 09/13/24 04:00 Chloride IV 09/23/24 03:59 Q12H STAR Levothyroxine Sodium 200 mcg 09/12/24 17:21 09/12/24 17:25 Levothyroxine Sodium 100 Mcg Vial IV 09/12/24 17:22 200 mcg ONCE ONE Administration Levothyroxine Sodium 100 mcg 09/13/24 07:00 Levothyroxine Sodium 100 Mcg Vial IV 09/15/24 07:01 DAILYDM STAR Miscellaneous 1 each 09/12/24 21:45 09/12/24 21:43 Vancomycin Consult Request NOTAPPLIC 10/12/24 21:44 1 each CONSULT PH[facility]Y [facility] Administration Discontinued Medications Generic Name Dose Route Start Last Admin Trade Name Vira PRN Reason Stop Dose Admin Dextrose 50 ml 09/12/24 21:15 09/12/24 20:35 Dextrose 50% 50ml Syringe (Crash Cart) IV 09/12/24 21:16 50 ml ONCE ONE Administration Droperidol 2.5 mg 09/12/24 14:35 09/12/24 14:59 Droperidol 5mg/2ml Vial IV 09/12/24 14:36 2.5 mg ONCE ONE Administration Sodium Chloride 1,000 mls @ 999 mls/hr 09/12/24 13:57 09/12/24 14:57 Sod Chlor 0.9% 1000ml Bag IV 09/12/24 14:57 999 mls/hr .Q1H1M ONE Administration Cefepime HCl 2 gm/ Sodium 100 mls @ 200 mls/hr 09/12/24 14:34 09/12/24 15:00 Chloride IV 09/12/24 15:03 200 mls/hr ONCE ONE Administration Vancomycin HCl 1,000 mg/ 250 mls @ 125 mls/hr 09/12/24 14:45 09/12/24 16:09 Sodium Chloride IV 09/12/24 16:44 125 mls/hr ONCE ONE Administration Lactated Ringer's 1,710 mls @ 855 mls/hr 09/12/24 15:11 09/12/24 16:09 Lactated Ringer's 1000 Ml Bag 30 ml/kg infuse over 2 hr (1710 ml) 09/12/24 17:10 855 mls/hr IV Administration .Q2H ONE Miscellaneous 1 each 09/12/24 14:45 Vancomycin Consult Request NOTAPPLIC 10/12/24 14:44 CONSULT PHARMACY [facility] ORDERS Category Date Time Status XR chest portable Stat Exams 09/12/24 13:57 Completed Complete Blood Count Auto Diff AMLAB Lab 09/13/24 06:00 Ordered Complete Blood Count Auto Diff Stat Lab 09/12/24 16:34 Completed Comprehensive Metabolic Panel AMLAB Lab 09/13/24 06:00 Ordered Comprehensive Metabolic Panel Stat Lab 09/12/24 14:43 Completed Free Valproic Acid (Depakote) Routine Lab 09/12/24 16:34 Received Lactic Acid Follow Up (RFLX 1) Stat Lab 09/12/24 18:33 Completed Lactic Acid Stat Lab 09/12/24 14:43 Completed Lipase Stat Lab 09/12/24 14:43 Completed Magnesium AMLAB Lab 09/13/24 06:00 Ordered Magnesium Stat Lab 09/12/24 14:43 Completed PT INR [Prothrombin Time INR] Stat Lab 09/12/24 16:34 Completed PTT [Activated Partial Thrombo Time] Stat Lab 09/12/24 16:34 Completed Procalcitonin Stat Lab 09/12/24 14:43 Completed T4 (Thyroxine) Stat Lab 09/12/24 14:43 Completed TSH [Thyroid Stimulating Hormone] Stat Lab 09/12/24 14:43 Completed Troponin I Q3H Lab 09/12/24 16:34 Completed Troponin I Q3H Lab 09/12/24 20:40 Completed Troponin I Stat Lab 09/12/24 14:43 Completed Urinalysis and Microscopic Stat Lab 09/12/24 13:50 Completed Blood Culture Stat Micro 09/12/24 14:43 Received CRE Screen Routine Micro 09/12/24 18:33 Received Urine Culture Stat Micro 09/12/24 13:50 Received Venous Blood Gas Stat RT 09/12/24 14:00 Completed Medical Decision Narrative: 74-year-old Fe male who hypertension, hyperlipidemia, CVA, dementia, atrial fibrillation, CKD, among others presenting with hemoptysis. [facility] was at the [facility] just prior to this visit, started hacking, coughing, brought up large light red mucous plug versus vomited. Just got done eating red ice cream, unknown if this is related. EMS picked her up, stated that she did this 1 more time prior to arrival, did not do it since. Per EMS, [facility] also states patient feels cold to the touch. No fevers were measured there. On arrival, at neurologic baseline. Crying out, but this is normal, per EMS and since my previous interaction with her. Largely not responding to me, but she is alert, eyes open, pupils 3 mm and reactive. Lungs are clear, abdomen is soft, nontender, nondistended. No lower extremity edema. Differential includes pneumonia, bronchitis, sepsis, PE, urinary tract infection, among others. Patient placed on continuous cardiac monitoring and continuous pulse ox with initial blood pressure 120/72, heart rate 74, saturation 94% on room air. Independent interpretation of EKG shows largely nondiagnostic exam. Appears ventricular rate to be around 80 bpm. [place] interval 172, QRS 94, QTc 426, no obvious acute ischemic change, but difficult to discern. Patient was given fluids and droperidol for symptomatic management and correction of underlying abnormalities. Patient also hypothermic, empirically antibiosed. Workup independently interpreted and significant for VBG with normal pH, mildly decreased bicarb at 22. Lactate 3.3 with catheterized sample urinalysis with bacteria, white blood cells consistent with urinary tract infection versus colonization. Patient will need to be admitted for sepsis management, likely, but prior to this, care note off oncoming physician. Link Trainer Maintenance Man disclaimer Much of this encounter note is an electronic spd manager spoken language to printed text. Electronic spd manager of the spoken language may permit errors. Although I have reviewed the note, some errors may still exist. DO Aleksandr: I think he had the patient at 1500, at which point she promptly decompensated became hypotensive. She also was hypoxic requiring supplemental oxygen, is hypothermic. All the seems are concerning for sepsis. I independently interpreted chest x-ray prior to radiology read and noted concerns for focal pneumonia. CBC demonstrates mild anemia, no indication for transfusion at this time. She does have a neutrophilic shift. She was given sepsis bolus of IV fluids with no improvement in her blood pressure, so she was then started on IV Levophed. She was started on broad-spectrum IV antibiotics with IV vancomycin and cefepime. She did have good blood pressure improvement and improvement in perfusion after sepsis bolus of IV fluids as well as IV Levophed. Patient had CT head, CTA chest, and CT abdomen pelvis ordered for further evaluation and management, however she was not stable to go to CT scan. Every time we tried to send her, her blood pressure tanked or she did not tolerate lying back. She also was very uncooperative, not wanting to lie still. We tried to call caregiver listed in chart, with but we did not get an answer. Nursing facility was updated and notified that she would be admitted here. Patient was admitted in critical condition for sepsis with septic shock, pneumonia, altered mental status, respiratory failure. Procedures <Tory Brandon DO - Last Filed: 09/13/24 00:43> Miscellaneous Procedure Procedure Performed: PROCEDURE NOTE: IV Placement under Ultrasound Guidance Performed by: Tory Brandon DO Indication: IV access required. Multiple attempts at peripheral IV placement were made by the nursing staff without success Procedure: The area was prepped in the usual fashion. The left cephalic vein was cannulated with a 20 gauge angiocath with use of dynamic ultrasound to identify the vein. The patient tolerated the procedure well. Complications: None Critical Care <Son Forte MD - Last Filed: 09/12/24 15:12> Critical Care Time Critical Care Time: No <Tory Brandon DO - Last Filed: 09/13/24 00:43> Critical Care Time Critical Care Time: Yes Attestation: On 09/12/24, the high probability of a clinically significant, sudden or life threatening deterioration of the following system(s) required my full and direct attention, intervention and personal management. The time I documented below is in addition to time spent performing reported procedures but includes the following listed in this critical care notation. Total Time Total Critical Care Time: 65
--- NOTE | 2024-09-12 13:57 | XR_ITS ---
FINAL REPORT CLINICAL HISTORY: ams, hemoptysis COMPARISON: None FINDINGS: The heart size is mildly enlarged. Unfolded aorta is noted. The mediastinum is normal. Localized airspace opacity in the right upper lobe is probably due to acute pneumonia. The left lung is clear. There are no pleural effusions. There is no pneumothorax. There is no osseous abnormality. IMPRESSION: Probable acute right upper lobe pneumonia. Reviewed, Interpreted and Dictated by Von Wayne MD Transcribed by Eli Trotter Authenticated and [facility]
[2024-09-12 14:04] LABS: Microscopic, Urine URINE MICROSCOPIC (MICROSCOPIC)
[2024-09-12 14:06] LABS: VBG Base Excess -3.6 mmol/L (-2.4-2.3); VBG Oxygen Saturation 75.8 % (50-70); VBG PCO2 40.3 mmol/L (35-51); VBG PH 7.35 mmol/L (7.31-7.41); VBG PO2 41.4 mmol/L (28-40); VBG Total CO2 23.2 mmol/L (23-27)
[2024-09-12 14:08] LABS: Bilirubin,Urine Negative (Negative); Blood, Urine Negative (Negative); Color,Urine YELLOW (Yellow); Glucose,Urine (UA) Negative (Negative); Ketones,Urine Negative (Negative); Leukocyte Esterase,Urine TRACE (Negative); Nitrate,Urine Negative (Negative); Protein,Urine TRACE (Negative)
[2024-09-12 14:08] LABS: Lactate Venous 2.2 mmol/L (0.4-2.0)
[2024-09-12 14:29] LABS: Appearance,Urine Cloudy (Clear)
[2024-09-12 14:30] LABS: Bacteria,Urine 4+ /lpf
[2024-09-12] MEDS: 0.9 % SODIUM CHLORIDE 1000ML 1,000 ML 999 ML IV (14:57)
[2024-09-12] MEDS: droPERidol 5MG/2ML VIAL 2.5 MG IV (14:59)
[2024-09-12] MEDS: CEFEPIME HCL 2 GM in 0.9 % SODIUM CHLORIDE 100 ML IV (15:00)
[2024-09-12 15:03] LABS: Lactic Acid 3.3 mmol/L (0.7-2.1)
[2024-09-12 15:05] LABS: Alanine Aminotransferase 28 U/L (12-78); Albumin Level 3.5 g/dl (3.5-5.0); Albumin/Globulin Ratio 1.1 (1.1-1.8); Alkaline Phosphatase 100 U/L (38-126); Anion Gap 6.8 mEq/L (5-15); Aspartate Amino Transferase 33 U/L (14-36); Bilirubin,Total 0.4 mg/dl (0.2-1.3); Blood Urea Nitrogen 33 mg/dl (7-17); Calcium 9.2 mg/dl (8.4-10.2); Carbon Dioxide 36 mmol/L (22.0-30.0); Chloride 105 mmol/L (98-107); Creatinine Clearance Estimated 44 mL/min (50-200); Estimated Glomerular Filt Rate 82 ml/min (>60); GFR (African American) 99 ML/MIN (>60); Globulin 3.3 g/dL (1.3-3.2); Glucose 220 mg/dl (74-100); Potassium 4.8 mmoL/L (3.5-5.1); Sodium 143 mmol/L (136-145); Total Protein,Serum 6.8 g/dl (6.3-8.2)
[2024-09-12 15:06] LABS: Magnesium 2.2 mg/dl (1.6-2.3)
[2024-09-12 15:22] LABS: Procalcitonin 0.589 ng/mL (0.0-2.0)
[2024-09-12 15:24] LABS: Troponin I < 0.01 ng/ml (0.00-0.034)
[2024-09-12] MEDS: NOREPINEPHRINE BITARTRATE/D5W 8 MG/250 ML PLAST..BAG 3.75 MG IV (15:36)
--- NOTE | 2024-09-12 15:51 | PC.NURSE ---
I left a VM for Carmen Larkin [facility] to return my call.
[2024-09-12] MEDS: VANCOMYCIN HCL 1,000 MG in 0.9 % SODIUM CHLORIDE 250 ML 125 MG IV (16:09)
[2024-09-12] MEDS: LACTATED RINGERS 1000ML 1,710 ML 855 ML IV (16:09)
[2024-09-12 16:27] LABS: Lipase 18 U/L (23-300)
[2024-09-12 16:48] LABS: Basophils % 0.2 % (0.1-2.0); Eosinophils % 0.1 % (0.1-12.0); Hematocrit 29.7 % (37.0-47.0); Hemoglobin 9.2 g/dL (12.2-16.2); Immature Granulocytes # 0.03 10^3uL; Immature Granulocytes % 0.3 %; Lymphocytes # 0.7 K/mm3 (0.7-4.5); Lymphocytes % 7.2 % (10-50); Mean Corpuscular Hemoglobin 21.3 pg (27.0-31.2); Mean Corpuscular Volume 68.9 fl (81-99); Monocytes # 0.4 K/mm3 (0.1-1.0); Monocytes % 4.3 % (1.7-9.3); Neutrophils # 8.3 K/mm3 (1.8-7.8); Neutrophils % 87.9 % (37.0-80.0); Nucleated Red Blood Cells # 0.05 10^3/uL; Nucleated Red Blood Cells % 0.5 %; Platelet Count 71 K/mm3 (142-424); Red Blood Count 4.31 M/mm3 (4.20-5.40); Red Cell Distribution Width 17.6 % (11.5-17.5); Red Cell Distribution Width-SD 43.1 fL; White Blood Count 9.5 K/mm3 (4.8-10.8)
[2024-09-12 17:14] LABS: INR 0.91 (0.9-1.1); Prothrombin Time 10.3 seconds (10.1-12.5); Troponin I < 0.01 ng/ml (0.00-0.034)
--- NOTE | 2024-09-12 17:23 | P.HP_ITS ---
<Statement entered by Javier Barrientos MD - 09/13/24 09:38> Rounded on patient after nurse practitioner. Personally examined and interviewed patient. Agree with exam findings and care plan as documented. History of Present Illness *Admission Date: 09/12/24 *Reason for visit:: Septic shock, hemoptysis *History of present illness: This is a 74-year-old female with a past medical history of hypertension, hyperlipidemia, CVA, dementia, atrial fibrillation, CKD, seizure disorder who presents from her living facility for hacking cough with light red mucous plug noted. EMS picked her up at her living facility and states that she had 1 more episode with them of light red mucus and were told by nursing staff at the facility that she had just eaten red ice cream. On arrival to the emergency room she was neurologically at baseline. Nonverbal at baseline with crying out spells. Alert with eyes open and pupils reactive. Further review of systems unable to be obtained secondary to patient's mental status. Emergency department workup notable for intermittent labile blood pressures. She was also noted to be hypoxic requiring oxygen and hypothermic to 90 degrees. Blood pressure improved after IV sepsis fluid bolus. Labs notable for normal white cell count but neutrophil predominant, Platelet count of 71,000, lactic acid of 2.2, TSH of 84 with previous TSH of 117, urinalysis with 4+ bacteria. Chest x-ray notable for probable right upper lobe pneumonia. Given her above-mentioned evaluation, sepsis protocol was initiated. She is an placed on broad-spectrum antibiotics after blood cultures obtained. She is admitted to hospital service [facility] Disclaimer: The information contained in this section may have been updated after the patient was seen, as this information can be updated by other users. Medical History Hypothyroid Acute renal failure Hypothermia Sepsis Acute hypernatremia Pancreatitis Pneumonia Cerebrovascular disease, unspecified Unable to care for self Blindness Atrial fibrillation Seizure disorder Irritation of right eye Hypomagnesemia Hypokalemia Hypernatremia Inadequate oral intake Swallowing difficulty Dementia Intellectual disability Encephalopathy Right ovarian enlargement Transaminitis Cellulitis and abscess of face Facial swelling Thrombocytopenia History of Klebsiella pneumonia Chronic heart failure with preserved ejection fraction (HFpEF) Anemia Hypertension Severe sepsis Hypoglycemia Hypothermia Family History (Updated 09/12/24 @ 19:00 by Amaris Bailey RN) Other No significant family history Social History (Updated 09/12/24 @ 19:00 by Amaris Bailey RN) Smoking Status: Unknown if ever smoked alcohol intake: former current occupational status: unemployed Travel in the last 8 weeks?: None Contact w/someone who lives/traveled outside [place] past 30 days?: No Exposure to someone with infectious disease in past 14 days?: No Do you have a fever (greater than 100.4 F or 38 C)?: No Have you tested positive for COVID-19?: No Exposed to someone with COVID-19 in past 14 days?: No Do you have a sore throat?: No Do you have a cough?: No Do you have any weakness?: No Are you experiencing any nausea/vomitting?: No Do you have any diarrhea?: No Are you experiencing any unusual bleeding?: No Do you have any muscle aches/pain?: No Do you have any abdominal pain?: No Are you experiencing loss of taste or smell?: No Other Medical History Have you received the Pneumonia Vaccine: Yes (03/23/21) Review of Systems Review of Systems Review of systems:: unable to obtain Meds Home Medications and Allergies Home Medications ?Medication ?Instructions ?Recorded ?Confirmed ?Type amiodarone 200 mg tablet 200 mg PO DAILY 10/25/23 09/12/24 History apixaban 5 mg tablet 5 mg PO BID 10/25/23 09/12/24 History melatonin 5 mg capsule 5 mg PO HS 10/25/23 09/12/24 History polyethylene glycol 3350 17 17 g PO DAILY 10/25/23 09/12/24 History gram/dose oral powder acetaminophen 500 mg tablet 500 mg PO Q6H PRN Pain 03/12/24 09/12/24 History levothyroxine 25 mcg tablet 25 mcg PO DAILY #90 tabs 04/16/24 09/12/24 Rx clonidine HCl 0.1 mg tablet 0.1 mg PO TID 05/21/24 09/12/24 History mirtazapine 15 mg tablet (Remeron) 15 mg PO HS 06/26/24 09/12/24 History buspirone 5 mg tablet 5 mg PO TID 07/30/24 09/12/24 History ferrous sulfate 325 mg (65 mg 325 mg PO DAILY 07/30/24 09/12/24 History iron) tablet (FeroSul) lansoprazole 30 mg capsule,delayed 30 mg PO DAILY 07/30/24 09/12/24 History release hydrocodone 5 mg-acetaminophen 325 1 tab PO TID #90 tabs 07/31/24 09/12/24 Rx mg tablet olanzapine 5 mg tablet (Zyprexa) 7.5 mg PO BID 09/04/24 09/12/24 History divalproex 125 mg capsule,delayed 250 mg PO QID 09/10/24 09/12/24 History release sprinkle (Depakote Sprinkles) New Prescriptions to Start Prescriptions: Allergies Allergy/AdvReac Type Severity Reaction Status Date / Time No Known Allergies Allergy Verified 09/04/24 14:39 Exam Data for Last 24 hours Vital signs and Labs for Last 24 Hours: Temp Pulse Resp BP Pulse Ox O2 Del Method 91.8 F L 91 H 14 85/45 L 95 Room Air 09/12/24 15:15 09/12/24 17:05 09/12/24 17:05 09/12/24 17:05 09/12/24 17:05 09/12/24 17:05 Laboratory Results - last 24 hr 09/12/24 13:50: Urine Color Yellow, Urine Appearance Cloudy, Urine pH 6.0, Ur Specific [place] 1.020, Urine Protein Trace, Urine Glucose (UA) Negative, Urine Ketones Negative, Urine Blood Negative, Urine Nitrate Negative, Urine Bilirubin Negative, Urine Urobilinogen 1.0, Ur Leukocyte Esterase Trace, Urine RBC None, Urine WBC 10-20, Ur Squamous Epith Cells 3-5, Urine Bacteria 4+ 09/12/24 14:00: VBG pH 7.35, VBG pCO2 40.3, VBG pO2 41.4 H, VBG HCO3 22.0 L, VBG Total CO2 23.2, VBG O2 Saturation 75.8 H, VBG Base Excess -3.6 L, VBG Lactic Acid 2.2 H 09/12/24 14:43: Sodium 143, Potassium 4.8, Chloride 105, Carbon Dioxide 36 H, Anion Gap 6.8, BUN 33 H, Creatinine 0.70, Estimated Creat Clear 44, Estimated GFR 82, Est GFR ( Amer) 99, Glucose 220 H, Lactate 3.3 H, Calcium 9.2, Magnesium 2.2, Total Bilirubin 0.4, AST 33, ALT 28, Alkaline Phosphatase 100, Troponin I < 0.01, Total Protein 6.8, Albumin 3.5, Globulin 3.3 H, Albumin/Globulin Ratio 1.1, Lipase 18 L, Procalcitonin 0.589 09/12/24 16:34: WBC 9.5, RBC 4.31, Hgb 9.2 L, Hct 29.7 L, MCV 68.9 L, MCH 21.3 L , MCHC 31.0 L, RDW 17.6 H, Plt Count 71 L, MPV TNP, Neut % (Auto) 87.9 H, Lymph % (Auto) 7.2 L, [place] % (Auto) 4.3, Eos % (Auto) 0.1, Baso % (Auto) 0.2, Neut # (Auto) 8.3 H, Lymph # (Auto) 0.7, [place] # (Auto) 0.4, Eos # (Auto) 0.0, Baso # (Auto) 0.0, PT 10.3, INR 0.91, Troponin I < 0.01 I & O for Last 24 hours: Intake & Output 09/09/24 09/10/24 09/11/24 09/12/24 23:59 23:59 23:59 23:59 Intake Total 29.25 / 29.25 Balance 29. / . Weight 56.245 kg Constitutional Constitutional: moderate distress, cachectic, chronically ill appearing and somnolent *Routine HEENT Exam Head: Present normocephalic Eye: Present EOMI and PERRL ENT: Present mucous membranes moist *Routine Neck Exam Neck: Present supple; Absent lymphadenopathy *Routine Respiratory Exam Respiratory: Present CTA bilaterally and normal respiratory effort *Routine Cardiovascular Exam Cardiovascular: Present RRR, Normal S1 and Normal S2 *Routine Abdominal Exam Abdominal: Present soft and normoactive bowel sounds; Absent tenderness *Routine Rectal Exam Rectal:: deferred *Routine Genitalia Exam Genitalia:: deferred *Routine Extremities Exam Extremities: Present pulses intact; Absent cyanosis, clubbing, edema or full ROM *Routine Skin Exam Skin: Present intact and warm; Absent rash *Routine Neurological Exam Neurological: Present alert and oriented X3 Assessment and Plan *Assessment and plan (1) Septic shock: Status: Acute Category: Medical Code(s): A41.9 - Sepsis, unspecified organism; R65.21 - Severe sepsis with septic shock (2) Hypothyroidism: Status: Acute Category: Medical Code(s): E03.9 - Hypothyroidism, unspecified (3) Pneumonia: Status: Acute Category: Medical Code(s): J18.9 - Pneumonia, unspecified organism (4) Acute hypoxic respiratory failure: Status: Acute Category: Medical Code(s): J96.01 - Acute respiratory failure with hypoxia (5) Atrial fibrillation: Problem Comment: history of Status: Acute Category: Medical Code(s): I48.91 - Unspecified atrial fibrillation (6) Dementia: Status: Acute Category: Medical Code(s): F03.90 - Unspecified dementia, unspecified severity, without behavioral disturbance, psychotic disturbance, mood disturbance, and anxiety (7) Seizure disorder: Status: Acute Category: Medical Code(s): G40.909 - Epilepsy, unspecified, not intractable, without status epilepticus Plan 74-year-old female who presented with septic shock, hypothermia. Discussed case with ER physician, request admission to ICU for further management. Received broad-spectrum antibiotics in the ED. We agreed to admit for further care. Problems addressed as follows: #Sepsis with septic shock Hypotension, lactic acidosis, tachycardia Pneumonia noted on chest imaging as well as mild urinary tract infection Requiring waxing and waning doses of Levophed. Continue broad-spectrum antibiotic coverage with vancomycin and cefepime Follow-up blood cultures Poor urine output despite 30 mL/kg bolus of fluids. Will continue maintenance I V fluids Jimenez catheter in place for intake and output Continue stress dose steroids #Hypothyroidism Possible element of myexedema contributing to altered mental status. TSH of 117 on 09/06/2024 with repeat down to 84 today Continue IV levothyroxine Monitor blood pressure and hypothermia #Hypothermia Likely from sepsis and/or hypothyroidism Warm with warming device to normothermic Monitor for vasodilation and hypotension #Acute hypoxic respiratory failure Requiring 2 L nasal cannula at this time. Pneumonia noted on chest imaging Continue pulmonary toilet And antibiotics as above #Dementia #Seizure disorder Continue home medications once able #Vancomycin Requires intensive moniotring for toxicity pharmacy consulted monitor renal function ad serum vanc level and adjust as appropriate DNR/DNI Holding anticoagulation in the setting of hemoptysis N.p.o.
[2024-09-12] MEDS: LEVOTHYROXINE SODIUM 100 MCG VIAL 200 MCG IV (17:25)
--- NOTE | 2024-09-12 17:25 | PC.NURSE ---
section housekeeper called for bed admission
[2024-09-12 17:27] LABS: Activated Partial Thrombo Time 25.2 seconds (22.8-30.6)
--- NOTE | 2024-09-12 17:50 | PC.NURSE ---
called and received report from JEAN Krishnan. Per JEAN Clark the provides would like to wait on CT scans until pt is stabilized
[2024-09-12 18:09] LABS: Reflex Lactic Add Lactic Reflex
[2024-09-12 18:24] LABS: T4 (Thyroxine) 4.6 ug/dl (5.53-11.0)
--- NOTE | 2024-09-12 18:41 | PC.NURSE ---
pt transported to the floor via stretcher on the monitor by this nurse and JEAN Dang
--- NOTE | 2024-09-12 18:49 | PC.NURSE ---
pt arrived to room 218 via stretcher from ER @1825 pt core temperature is 95. shahriar hugger is in place per hypothermia protocol, the heat on the thermostat was increased to 75 degrees, warm blankets were placed, pt has heel protectors on and is right side lying at this time with a wedge. pillows are placed behind legs to prevent skin friction. pt's head of the bed is at 30 degrees per aspiration protocol. bed alarm is on and functioning, seizure pads are on the pt's bed due to seizure precautions being in place. Nursing staff with monitor pts temperature continuously via temperature sensing teague.pt will be turned every two hours along with oral care to promote skin integrity and oral hygiene. call light is within reach
[2024-09-12 19:40] LABS: Lactic Acid Follow Up (RFLX 1) 2.1 mmol/L (0.7-2.1)
--- NOTE | 2024-09-12 20:03 | PC.NURSE ---
Attempted to call [facility] for DNR status. Reached voicemail and left message with call back number at this time. Voicemail box states office will open @ 8am.
[2024-09-12] MEDS: DEXTROSE 50% 50ML SYRINGE (CRASH CART) 50 ML IV (20:35)
[2024-09-12 20:38] LABS: Reflex Lactic (2 hrs) Add Lactic Reflex
[2024-09-12 21:13] LABS: POC Glucose,Bedside 145 (70-110)
[2024-09-12 21:29] LABS: Troponin I < 0.01 ng/ml (0.00-0.034)
[2024-09-12] MEDS: VANCOMYCIN CONSULT REQUEST 1 EACH NOTAPPLIC (21:43)
--- NOTE | 2024-09-12 22:30 | PC.NURSE ---
Pt temp 98.6. Radha duyer removed and extra blankets removed at this time.
[2024-09-12 23:10] LABS: Lactic Acid Follow up (RFLX 2) 1.6 mmol/L (0.7-2.1)
--- NOTE | 2024-09-12 23:23 | PC.NURSE ---
Pt FSBS 41. Pt unable to take sips at this time. 1 amp d50 administered per protocol. Rechecked FSBS after 15mins, 145
[2024-09-12] MEDS: HYDROCORTISONE SOD SUCCINATE 100MG VIAL 50 MG IV (23:33)
[2024-09-13] VITALS (32 sets, daily range): BP systolic 81–186; BP diastolic 35–88; PULSE 67–101; RESP 12–30; TEMP 35.8–37.2; O2SAT 95–100; BMI 21.0
--- NOTE | 2024-09-13 01:15 | PC.NURSE ---
Pt urine output less than 35ml/hr since arriving to shift. Jimenez in place. Urine is dark yellow, clear with strong odor. J Jonny notified, states she will start IV fluids.
[2024-09-13] MEDS: 0.9 % SODIUM CHLORIDE 1000ML 1,000 ML 500 ML IV (02:41)
--- NOTE | 2024-09-13 03:35 | PC.NURSE ---
Pt core temp noted to be 97.2. Warm blankets applied and room temperature turned up.
[2024-09-13] MEDS: CEFEPIME HCL 2 GM in 0.9 % SODIUM CHLORIDE 100 ML IV ×2 (04:22→16:17)
[2024-09-13] MEDS: VANCOMYCIN HCL 500 MG in 0.9 % SODIUM CHLORIDE 250 ML 125 MG IV (05:15)
[2024-09-13] MEDS: HYDROCORTISONE SOD SUCCINATE 100MG VIAL 50 MG IV ×4 (06:03→22:37)
[2024-09-13] MEDS: LEVOTHYROXINE SODIUM 100 MCG VIAL IV (06:08)
[2024-09-13] MEDS: DEXTROSE 50% 50ML SYRINGE (CRASH CART) 50 ML IV (06:13)
[2024-09-13 06:26] LABS: Basophils % 0.3 % (0.1-2.0); Eosinophils % 0.1 % (0.1-12.0); Hematocrit 24.3 % (37.0-47.0); Immature Granulocytes # 0.04 10^3uL; Immature Granulocytes % 0.4 %; Lymphocytes # 0.8 K/mm3 (0.7-4.5); Lymphocytes % 8.1 % (10-50); Mean Corpuscular HGB Conc 30.5 g/dL (31.8-35.4); Mean Corpuscular Volume 68.8 fl (81-99); Monocytes # 0.3 K/mm3 (0.1-1.0); Monocytes % 2.8 % (1.7-9.3); Neutrophils # 8.4 K/mm3 (1.8-7.8); Neutrophils % 88.3 % (37.0-80.0); Nucleated Red Blood Cells # 0.02 10^3/uL; Nucleated Red Blood Cells % 0.2 %; Platelet Count 63 K/mm3 (142-424); Red Blood Count 3.53 M/mm3 (4.20-5.40); Red Cell Distribution Width 17.9 % (11.5-17.5); Red Cell Distribution Width-SD 42.7 fL; White Blood Count 9.5 K/mm3 (4.8-10.8)
--- NOTE | 2024-09-13 06:34 | PC.NURSE ---
FSBS 62 this AM, 1/2 amp d50 administered per protocol.
[2024-09-13 06:35] LABS: Alanine Aminotransferase 20 U/L (12-78); Albumin Level 2.8 g/dl (3.5-5.0); Albumin/Globulin Ratio 0.9 (1.1-1.8); Alkaline Phosphatase 84 U/L (38-126); Anion Gap 4.6 mEq/L (5-15); Aspartate Amino Transferase 23 U/L (14-36); Bilirubin,Total 0.3 mg/dl (0.2-1.3); Blood Urea Nitrogen 35 mg/dl (7-17); Calcium 8.4 mg/dl (8.4-10.2); Carbon Dioxide 31 mmol/L (22.0-30.0); Chloride 112 mmol/L (98-107); Creatinine Clearance Estimated 41 mL/min (50-200); Estimated Glomerular Filt Rate 49 ml/min (>60); GFR (African American) 59 ML/MIN (>60); Glucose 158 mg/dl (74-100); Magnesium 2.1 mg/dl (1.6-2.3); Potassium 4.6 mmoL/L (3.5-5.1); Sodium 143 mmol/L (136-145); Total Protein,Serum 5.8 g/dl (6.3-8.2)
[2024-09-13 06:36] LABS: Hemoglobin 7.6 g/dL (12.2-16.2)
[2024-09-13 06:42] LABS: POC Glucose,Bedside 62 (70-110)
[2024-09-13 07:00] LABS: POC Glucose,Bedside 90 (70-110)
--- NOTE | 2024-09-13 07:40 | P.CONPHA_ITS ---
Pharmacy Consult Date: 09/13/24 Time: 07:40 Referring provider: DR. FARRELL Reason for Consult:: VANCOMYCIN DOSING Allergies Allergy/AdvReac Type Severity Reaction Status Date / Time No Known Allergies Allergy Verified 09/04/24 14:39 Home Medications ?Medication ?Instructions ?Recorded ?Confirmed ?Type amiodarone 200 mg tablet 200 mg PO DAILY 10/25/23 09/12/24 History apixaban 5 mg tablet 5 mg PO BID 10/25/23 09/12/24 History melatonin 5 mg capsule 5 mg PO HS 10/25/23 09/12/24 History polyethylene glycol 3350 17 17 g PO DAILY 10/25/23 09/12/24 History gram/dose oral powder acetaminophen 500 mg tablet 500 mg PO Q6H PRN Pain 03/12/24 09/12/24 History levothyroxine 25 mcg tablet 25 mcg PO DAILY #90 tabs 04/16/24 09/12/24 Rx clonidine HCl 0.1 mg tablet 0.1 mg PO TID 05/21/24 09/12/24 History mirtazapine 15 mg tablet (Remeron) 15 mg PO HS 06/26/24 09/12/24 History buspirone 5 mg tablet 5 mg PO TID 07/30/24 09/12/24 History ferrous sulfate 325 mg (65 mg 325 mg PO DAILY 07/30/24 09/12/24 History iron) tablet (FeroSul) lansoprazole 30 mg capsule,delayed 30 mg PO DAILY 07/30/24 09/12/24 History release hydrocodone 5 mg-acetaminophen 325 1 tab PO TID #90 tabs 07/31/24 09/12/24 Rx mg tablet olanzapine 5 mg tablet (Zyprexa) 7.5 mg PO BID 09/04/24 09/12/24 History divalproex 125 mg capsule,delayed 250 mg PO QID 09/10/24 09/12/24 History release sprinkle (Depakote Sprinkles) New Prescriptions to Start Prescriptions: Height: 1.65 m Weight: 57.24 kg Laboratory Results:: Laboratory Results - last 24 hr 09/12/24 13:50: Urine Color Yellow, Urine Appearance Cloudy, Urine pH 6.0, Ur Specific [place] 1.020, Urine Protein Trace, Urine Glucose (UA) Negative, Urine Ketones Negative, Urine Blood Negative, Urine Nitrate Negative, Urine Bilirubin Negative, Urine Urobilinogen 1.0, Ur Leukocyte Esterase Trace, Urine RBC None, Urine WBC 10-20, Ur Squamous Epith Cells 3-5, Urine Bacteria 4+ 09/12/24 14:00: VBG pH 7.35, VBG pCO2 40.3, VBG pO2 41.4 H, VBG HCO3 22.0 L, VBG Total CO2 23.2, VBG O2 Saturation 75.8 H, VBG Base Excess -3.6 L, VBG Lactic Acid 2.2 H 09/12/24 14:43: Sodium 143, Potassium 4.8, Chloride 105, Carbon Dioxide 36 H, Anion Gap 6.8, BUN 33 H, Creatinine 0.70, Estimated Creat Clear 44, Estimated GFR 82, Est GFR ( Amer) 99, Glucose 220 H, Lactate 3.3 H, Calcium 9.2, Magnesium 2.2, Total Bilirubin 0.4, AST 33, ALT 28, Alkaline Phosphatase 100, Troponin I < 0.01, Total Protein 6.8, Albumin 3.5, Globulin 3.3 H, Albumin/Globulin Ratio 1.1, Lipase 18 L, Procalcitonin 0.589, TSH 84.40 H, Thyroxine (T4) 4.6 L 09/12/24 16:34: WBC 9.5, RBC 4.31, Hgb 9.2 L, Hct 29.7 L, MCV 68.9 L, MCH 21.3 L , MCHC 31.0 L, RDW 17.6 H, Plt Count 71 L, MPV TNP, Neut % (Auto) 87.9 H, Lymph % (Auto) 7.2 L, [place] % (Auto) 4.3, Eos % (Auto) 0.1, Baso % (Auto) 0.2, Neut # (Auto) 8.3 H, Lymph # (Auto) 0.7, [place] # (Auto) 0.4, Eos # (Auto) 0.0, Baso # (Auto) 0.0, PT 10.3, INR 0.91, APTT 25.2, Troponin I < 0.01 09/12/24 18:33: Lactate 2.1 09/12/24 20:40: Troponin I < 0.01 09/12/24 21:06: POC Glucose 145 H 09/12/24 22:48: Lactate 1.6 09/13/24 06:03: POC Glucose 62 L 09/13/24 06:17: WBC 9.5, RBC 3.53 L, Hgb 7.6 L D, Hct 24.3 L, MCV 68.8 L, MCH 21.0 L, MCHC 30.5 L, RDW 17.9 H, Plt Count 63 L, MPV TNP, Neut % (Auto) 88.3 H, Lymph % (Auto) 8.1 L, [place] % (Auto) 2.8, Eos % (Auto) 0.1, Baso % (Auto) 0.3, Neut # (Auto) 8.4 H, Lymph # (Auto) 0.8, [place] # (Auto) 0.3, Eos # (Auto) 0.0, Baso # (Auto) 0.0, Sodium 143, Potassium 4.6, Chloride 112 H, Carbon Dioxide 31 H, Anion Gap 4.6 L, BUN 35 H, Creatinine 1.10 H D, Estimated Creat Clear 41, Estimated GFR 49 L, Est GFR ( Amer) 59 D, Glucose 158 H D, Calcium 8.4, Magnesium 2.1, Total Bilirubin 0.3, AST 23 D, ALT 20 D, Alkaline Phosphatase 84, Total Protein 5.8 L, Albumin 2.8 L D, Globulin 3.0, Albumin/Globulin Ratio 0.9 L 09/13/24 06:53: POC Glucose 90 Medical History: Medical History (Updated 09/12/24 @ 17:22 by Tory Brandno DO) Hypothyroid Acute renal failure Hypothermia Sepsis Acute hypernatremia Pancreatitis Pneumonia Cerebrovascular disease, unspecified Unable to care for self Blindness Atrial fibrillation Seizure disorder Irritation of right eye Hypomagnesemia Hypokalemia Hypernatremia Inadequate oral intake Swallowing difficulty Dementia Intellectual disability Encephalopathy Right ovarian enlargement Transaminitis Cellulitis and abscess of face Facial swelling Thrombocytopenia History of Klebsiella pneumonia Chronic heart failure with preserved ejection fraction (HFpEF) Anemia Hypertension Severe sepsis Hypoglycemia Hypothermia Assessment and Plan Assessment and plan all Dx Assessment and Plan for all problems:: Pharmacokinetic dosing service Objective: Patient: Floor: Age: 74 yo Serum creatinine: 1.10 mg/dL Height: 65.0 Inches Weight (kg): 57.2 Assessment: IBW (kg): 57.00 Dosing wt(kg): 57.2 Estimated Creatinine clearance (ml/min): 41.0 CRCL method: Cockcroft and Gault using ibw(default). Drug selected: Vancomycin Loading dose (mg): Vd (liters): 45.8 (factor used: 0.8 L/kg) Ty (hr-1): 0.038 Half life (hrs): 18.24 CLvanco=?? 1.740 L/hr Recommended dose: 1000 mg Interval: 24 hrs Infusion time (hrs): 2.0 Predicted peak (mcg/mL): 35.1 Predicted trough (mcg/mL): 15.21 Total body weight is being used for vancomycin dosing. Recommendations: Give Vancomycin 1000 mg q 24 hrs with an expected Cpeak of 35.1 mcg/ml and an expected Ctrough of 15.21 mcg/ml AUC 0-24 /NABILA Data: NABILA 0.5 mcg/mL:?? AUC/NABILA:? 1149.4 NABILA 1.0 mcg/mL:?? AUC/NABILA:? 574.7 --------- NABILA 1.5 mcg/mL:?? AUC/NABILA:? 383.1 NABILA 2.0 mcg/mL:?? AUC/NABILA:? 287.4 Thank you for the consult, will continue to follow. -RAY YORK, BEARD
--- NOTE | 2024-09-13 08:00 | SW/DCPLANNER ---
Addendum entered by [facility] 09/19/24 09:23: All updated patient information faxed to Nurse Stockroom Worker for EOL Hospice services. Addendum entered by [facility] 09/16/24 13:40: Per Dr Lyn he will complete EOL documentation on Monday and fax to me. Patient will return to [facility] today. Addendum entered by [facility] 09/16/24 08:26: Per State [employer] Interviewer patient denied EOL/Hospice Care and has requested additional information from Dr Barrientos and Dr Lyn. I have relayed information to both MDs and will continue to assist w/ process. Per Dr Barrientos patient will return to [facility] level of care today. I will also update Mariajose w/ [facility]. Addendum entered by [facility] 09/13/24 14:17: Dr Barrientos has requested Hospice Services for this patient. Dr Lyn is consulting physician and agrees w/ this plan. End of Life paperwork along w/ documentation from both MD faxed to [facility] Consultants at this time. Addendum entered by [facility] 09/13/24 11:14: Patient is currently DNR. End of Life paperwork is being completed for Hospice services. Addendum entered by [facility] 09/13/24 10:04: Per Carmen paperwork will need to be completed w/ [facility]ians[facility]. I will work on paperwork this AM. Addendum entered by [facility] 09/13/24 09:32: I have attempted to contact patient's State Guardian (Carmen) regarding Hospice services VM left. Original Note: This patient currently resides at [facility] level of care. I will continue to follow up w/ Mariajose at [place] until patient is medically stable for discharge. Discharge date is unknown at this time.
[2024-09-13] MEDS: DEXTROSE 50% 50ML SYRINGE (CRASH CART) 25 ML IV (08:55)
[2024-09-13 08:59] LABS: POC Glucose,Bedside 55 (70-110)
--- NOTE | 2024-09-13 09:04 | HMH.ITSTN ---
spoke with JEAN Pritchard, trying to get patients blood sugar under control, still not stable enough to come down at this time, will call when ready.
[2024-09-13 09:15] LABS: POC Glucose,Bedside 146 (70-110)
--- NOTE | 2024-09-13 09:17 | P.CONPHA_ITS ---
Pharmacy Intervention Comments: HOME MEDICATION LIST VERIFIED USING LIST FROM CUSTODIAL MAR
--- NOTE | 2024-09-13 09:17 | HMH.PHAINT1 ---
Pharmacy Intervention Comments: HOME MEDICATION LIST VERIFIED USING LIST FROM [facility]
--- NOTE | 2024-09-13 09:36 | P.PN_ITS ---
Subjective *Date: 09/13/24 *Time: 22:37 Interval history: Body temperature doing better this morning. Normothermic at 96.8. Heart rate better at 72. Blood pressure 96/40 on 1 mcg/min of norepinephrine. Nonresponsive on exam. Obtunded Medical Exam Vital signs and Labs for Last 24 Hours: Vital Signs Temp Pulse Pulse Resp BP BP BP 09/13/24 08:30 72 12 96/43 L 09/13/24 08:30 72 18 96/43 L 09/13/24 08:05 96.8 F L 90 14 163/80 H 09/13/24 07:00 87 16 127/53 L 09/13/24 07:00 09/13/24 06:00 71 20 138/81 09/13/24 05:00 91 H 18 108/71 L 09/13/24 04:55 09/13/24 04:00 09/13/24 04:00 85 09/13/24 04:00 97.6 F 93 H 25 H 113/54 L 09/13/24 03:00 97.7 F 95 H 22 139/62 09/13/24 03:00 09/13/24 02:00 98.6 F 101 H 24 125/60 09/13/24 01:00 96 H 18 104/48 L 09/13/24 01:00 09/13/24 00:00 91 H 09/13/24 00:00 90 09/13/24 00:00 99.0 F 90 19 90/40 L 09/12/24 23:00 09/12/24 23:00 99.0 F 98 H 21 09/12/24 22:56 142/70 H 09/12/24 22:40 124/98 H 09/12/24 22:31 80/58 L 09/12/24 22:30 98.6 F 09/12/24 22:28 76/25 L 09/12/24 22:18 49/35 L 09/12/24 22:11 118/69 09/12/24 22:00 97.9 F 79 20 51/33 L 09/12/24 21:00 09/12/24 21:00 97.0 F L 92 H 17 148/105 H 09/12/24 20:30 110/64 09/12/24 20:00 84 09/12/24 20:00 96.1 F L 88 15 123/88 09/12/24 20:00 95 H 09/12/24 19:30 121/62 09/12/24 19:30 09/12/24 18:39 95 F L 85 18 150/82 H 09/12/24 18:10 96.3 F L 84 18 122/48 L 09/12/24 17:50 83 09/12/24 17:45 94.5 F L 09/12/24 17:41 73 21 122/48 L 09/12/24 17:37 64 21 129/48 L 09/12/24 17:36 91 H 19 162/144 H 09/12/24 17:25 77 12 146/68 H 09/12/24 17:22 82 13 115/96 H 09/12/24 17:19 86 19 129/41 L 09/12/24 17:17 87 17 65/39 L 09/12/24 17:05 91 H 14 85/45 L 09/12/24 17:00 93.6 F L 09/12/24 17:00 90 12 70/43 L 09/12/24 16:55 92 H 15 73/36 L 09/12/24 16:50 70 13 91/45 L 09/12/24 16:45 71 14 98/44 L 09/12/24 16:40 69 15 99/45 L 09/12/24 16:35 67 12 80/41 L 09/12/24 16:30 93.2 F L 09/12/24 16:30 70 15 87/45 L 09/12/24 16:25 73 15 148/122 H 09/12/24 16:21 77 12 137/61 09/12/24 16:15 68 14 104/47 L 09/12/24 16:10 67 14 104/48 L 09/12/24 16:05 68 13 106/52 L 09/12/24 16:00 92.7 F L 09/12/24 16:00 68 13 105/54 L 09/12/24 15:55 67 13 110/49 L 09/12/24 15:50 69 14 114/52 L 09/12/24 15:46 67 13 123/61 09/12/24 15:40 68 15 127/44 L 09/12/24 15:26 65 14 56/30 L 05/15/25 15:25 69 22 60/30 L 09/12/24 15:24 62 12 62/45 L 09/12/24 15:23 62 13 64/34 L 09/12/24 15:21 60 20 60/29 L 09/12/24 15:15 91.8 F L 77 14 70/50 L 09/12/24 15:10 66 54/28 L 09/12/24 15:01 59 L 14 50/26 L 09/12/24 14:31 72 24 167/117 H 09/12/24 14:05 69 14 120/87 09/12/24 13:55 90 F L 74 16 120/72 09/12/24 13:55 90 F L 62 15 119/92 H Pulse Ox O2 Del Method 09/13/24 08:30 100 Room Air 09/13/24 08:30 100 Room Air 09/13/24 08:05 100 Room Air 09/13/24 07:00 100 Room Air 09/13/24 07:00 Room Air 09/13/24 06:00 100 Room Air 09/13/24 05:00 100 Room Air 09/13/24 04:55 Room Air 09/13/24 04:00 100 Room Air 09/13/24 04:00 09/13/24 04:00 100 Room Air 09/13/24 03:00 100 Room Air 09/13/24 03:00 Room Air 09/13/24 02:00 98 Room Air 09/13/24 01:00 100 Room Air 09/13/24 01:00 Room Air 09/13/24 00:00 100 Room Air 09/13/24 00:00 09/13/24 00:00 100 Room Air 09/12/24 23:00 Room Air 09/12/24 23:00 100 Room Air 09/12/24 22:56 09/12/24 22:40 09/12/24 22:31 09/12/24 22:30 09/12/24 22:28 09/12/24 22:18 09/12/24 22:11 09/12/24 22:00 100 Room Air 09/12/24 21:00 Room Air 09/12/24 21:00 100 Room Air 09/12/24 20:30 09/12/24 20:00 09/12/24 20:00 100 Room Air 09/12/24 20:00 100 Room Air 09/12/24 19:30 09/12/24 19:30 Room Air 09/12/24 18:39 100 Room Air 09/12/24 18:10 Room Air 09/12/24 17:50 100 Room Air 09/12/24 17:45 09/12/24 17:41 96 Room Air 09/12/24 17:37 97 Room Air 09/12/24 17:36 97 Room Air 09/12/24 17:25 96 Room Air 09/12/24 17:22 96 Room Air 09/12/24 17:19 97 Room Air 09/12/24 17:17 95 Room Air 09/12/24 17:05 95 Room Air 09/12/24 17:00 09/12/24 17:00 96 Room Air 09/12/24 16:55 95 Room Air 09/12/24 16:50 98 Room Air 09/12/24 16:45 99 Room Air 09/12/24 16:40 100 Room Air 09/12/24 16:35 100 Room Air 09/12/24 16:30 09/12/24 16:30 100 Room Air 09/12/24 16:25 99 Room Air 09/12/24 16:21 99 Room Air 09/12/24 16:15 100 Room Air 09/12/24 16:10 100 Room Air 09/12/24 16:05 100 Room Air 09/12/24 16:00 09/12/24 16:00 100 Room Air 09/12/24 15:55 100 Room Air 09/12/24 15:50 100 Room Air 09/12/24 15:46 100 Room Air 09/12/24 15:40 100 Room Air 09/12/24 15:26 98 09/12/24 15:25 96 09/12/24 15:24 100 Room Air 09/12/24 15:23 99 Room Air 09/12/24 15:21 98 Room Air 09/12/24 15:15 97 Room Air 09/12/24 15:10 98 Room Air 09/12/24 15:01 97 Room Air 09/12/24 14:31 96 Room Air 09/12/24 14:05 95 Room Air 09/12/24 13:55 94 L Room Air 09/12/24 13:55 94 L Room Air Intake and Output 09/12/24 09/13/24 09/13/24 23:59 07:59 15:59 Intake Total 86.376 / 86.626 17.099 / 17.099 Output Total 245 / 255 125 / 125 Balance -158.624 / -168.374 -107.901 / -107.901 Intake: Intake, Total IV Amount 86.376 / 86.626 17.099 / 17.099 Output: Output, Urine Amount 245 / 255 125 / 125 Other: Number of Unmeasured Voids 0 0 0 Weight 57.181 kg 57.24 kg Patient Weight 09/13/24 23:59 Weight 57.24 kg Laboratory Results - last 24 hr 09/12/24 13:50: Urine Color Yellow, Urine Appearance Cloudy, Urine pH 6.0, Ur Specific [place] 1.020, Urine Protein Trace, Urine Glucose (UA) Negative, Urine Ketones Negative, Urine Blood Negative, Urine Nitrate Negative, Urine Bilirubin Negative, Urine Urobilinogen 1.0, Ur Leukocyte Esterase Trace, Urine RBC None, Urine WBC 10-20, Ur Squamous Epith Cells 3-5, Urine Bacteria 4+ 09/12/24 14:00: VBG pH 7.35, VBG pCO2 40.3, VBG pO2 41.4 H, VBG HCO3 22.0 L, VBG Total CO2 23.2, VBG O2 Saturation 75.8 H, VBG Base Excess -3.6 L, VBG Lactic Acid 2.2 H 09/12/24 14:43: Sodium 143, Potassium 4.8, Chloride 105, Carbon Dioxide 36 H, Anion Gap 6.8, BUN 33 H, Creatinine 0.70, Estimated Creat Clear 44, Estimated GFR 82, Est GFR ( Amer) 99, Glucose 220 H, Lactate 3.3 H, Calcium 9.2, Magnesium 2.2, Total Bilirubin 0.4, AST 33, ALT 28, Alkaline Phosphatase 100, Troponin I < 0.01, Total Protein 6.8, Albumin 3.5, Globulin 3.3 H, Albumin/Globulin Ratio 1.1, Lipase 18 L, Procalcitonin 0.589, TSH 84.40 H, Thyroxine (T4) 4.6 L 09/12/24 16:34: WBC 9.5, RBC 4.31, Hgb 9.2 L, Hct 29.7 L, MCV 68.9 L, MCH 21.3 L , MCHC 31.0 L, RDW 17.6 H, Plt Count 71 L, MPV TNP, Neut % (Auto) 87.9 H, Lymph % (Auto) 7.2 L, [place] % (Auto) 4.3, Eos % (Auto) 0.1, Baso % (Auto) 0.2, Neut # (Auto) 8.3 H, Lymph # (Auto) 0.7, [place] # (Auto) 0.4, Eos # (Auto) 0.0, Baso # (Auto) 0.0, PT 10.3, INR 0.91, APTT 25.2, Troponin I < 0.01 09/12/24 18:33: Lactate 2.1 09/12/24 20:40: Troponin I < 0.01 09/12/24 21:06: POC Glucose 145 H 09/12/24 22:48: Lactate 1.6 09/13/24 06:03: POC Glucose 62 L 09/13/24 06:17: WBC 9.5, RBC 3.53 L, Hgb 7.6 L D, Hct 24.3 L, MCV 68.8 L, MCH 21.0 L, MCHC 30.5 L, RDW 17.9 H, Plt Count 63 L, MPV TNP, Neut % (Auto) 88.3 H, Lymph % (Auto) 8.1 L, [place] % (Auto) 2.8, Eos % (Auto) 0.1, Baso % (Auto) 0.3, Neut # (Auto) 8.4 H, Lymph # (Auto) 0.8, [place] # (Auto) 0.3, Eos # (Auto) 0.0, Baso # (Auto) 0.0, Sodium 143, Potassium 4.6, Chloride 112 H, Carbon Dioxide 31 H, Anion Gap 4.6 L, BUN 35 H, Creatinine 1.10 H D, Estimated Creat Clear 41, Estimated GFR 49 L, Est GFR ( Amer) 59 D, Glucose 158 H D, Calcium 8.4, Magnesium 2.1, Total Bilirubin 0.3, AST 23 D, ALT 20 D, Alkaline Phosphatase 84, Total Protein 5.8 L, Albumin 2.8 L D, Globulin 3.0, Albumin/Globulin Ratio 0.9 L 09/13/24 06:53: POC Glucose 90 09/13/24 08:50: POC Glucose 55 L 09/13/24 09:06: POC Glucose 146 H I & O for Labs for Last 24 Hours: Intake & Output 09/10/24 09/11/24 09/12/24 09/13/24 23:59 23:59 23:59 23:59 Intake Total 86.626 / 86.626 17.099 / 17.099 Output Total 245 / 255 125 / 125 Balance -158.374 / -168.374 -107.901 / -107.901 Weight 57.181 kg 57.24 kg Constitutional: Present moderate distress, disheveled and somnolent Head: Present atraumatic Respiratory: Present normal respiratory effort; Absent rhonchi, wheezes or crackles Cardiac: Present Reg Rate and Rhythm GI: Present soft Comment:: Positive for sickle stimuli, nonresponsive to questions. Not answering with any verbal response. Moaning intermittently. Not opening eyes. Assessment and Plan *Assessment and plan (1) Septic shock: Status: Acute Category: Medical Code(s): A41.9 - Sepsis, unspecified organism; R65.21 - Severe sepsis with septic shock (2) Hypothyroidism: Status: Acute Category: Medical Code(s): E03.9 - Hypothyroidism, unspecified (3) Pneumonia: Status: Acute Category: Medical Code(s): J18.9 - Pneumonia, unspecified organism (4) Acute hypoxic respiratory failure: Status: Acute Category: Medical Code(s): J96.01 - Acute respiratory failure with hypoxia (5) Atrial fibrillation: Problem Comment: history of Status: Acute Category: Medical Code(s): I48.91 - Unspecified atrial fibrillation (6) Dementia: Status: Acute Category: Medical Code(s): F03.90 - Unspecified dementia, unspecified severity, without behavioral disturbance, psychotic disturbance, mood disturbance, and anxiety (7) Seizure disorder: Status: Acute Category: Medical Code(s): G40.909 - Epilepsy, unspecified, not intractable, without status epilepticus Plan 74-year-old long-term care patient with dementia from skilled nursing. Presents with septic shock versus myxedema coma. Showing some improvement today but remains frankly encephalopathic and confused with no meaningful response on exam. Not tolerating any p.o. intake. Stable on room air. Maintaining body temperature. Continues to require inpatient management. Problems addressed as follows: #Sepsis with septic shock Hypotension, lactic acidosis, tachycardia, improving Pneumonia noted on chest imaging as well as mild urinary tract infection Weaned off Levophed today. Continue broad-spectrum antibiotics with vancomycin and cefepime Blood cultures pending Continue stress dose steroids with hydrocortisone 50 mg every 6 hours IV - White count 9.5, hemoglobin 7.6. Normal cytopenia worse at 63. Kidney function showing some minor improvement with BUN 35, creatinine 1.1. Repeat C BC, CMP, magnesium ordered for the morning #Hypothyroidism #Hypothermia Possible element of myexedema contributing to altered mental status. TSH of 117 on 09/06/2024 with repeat down to 84 on admission. - Continuing IV levothyroxine 100 mg daily for 3 days, will transition to oral if patient perks up and able to take oral medications. - monitor blood pressure and hypothermia #Dementia #Seizure disorder - Resume Depakote 250 mg 4 times a day, Remeron 15 mg nightly, olanzapine 7.5 mg twice daily Patient has severe acute illness on top of significant chronic debility with worsening decompensation necessitating significant support for all ADLs. Taking into account her presentation with septic shock versus myxedema coma on top of her underlying chronic conditions, dementia, total care needs at nursing facility, would recommend patient be considered for end-of-life hospice care. This is due to her septic shock, dementia, seizure disorder, current encephalopathy and lack of any meaningful response to physical exam at this time along with lack of any nutritional intake. DNR/DNI Holding anticoagulation in the setting of hemoptysis Comfort feeds however not alert/interactive enough to eat at this time
--- NOTE | 2024-09-13 09:56 | PC.NURSE ---
0840 called received from Shawna Larkin pt state guardian. verified code status with guardian. per shawna pt was made a DNR in september of 2023. reviewed specifics with Shawna pt is a DNR. also noted on pt labs that h/h was 7.6/24.3 obtained consent for potential blood transfusion if needed r/t low h/h. consent received. consent for DNR and blood were verified by Amaris Bailey RN
[2024-09-13] MEDS: SODIUM CHLORIDE 3% 15ML NEB 3 ML IH (10:01)
[2024-09-13 10:33] LABS: POC Glucose,Bedside 118 (70-110)
[2024-09-13] MEDS: 0.9 % SODIUM CHLORIDE 1000ML 1,000 ML 100 ML IV (11:25)
[2024-09-13] MEDS: Dextrose 5 % and 0.9 % NaCl 1,000 ML 100 ML IV (12:01)
[2024-09-13 14:18] LABS: POC Glucose,Bedside 91 (70-110)
[2024-09-13 17:09] LABS: POC Glucose,Bedside 89 (70-110)
[2024-09-13] MEDS: VANCOMYCIN HCL 1,000 MG in 0.9 % SODIUM CHLORIDE 250 ML 125 MG IV (17:39)
--- NOTE | 2024-09-13 23:49 | PC.NURSE ---
Pt HS medications pulled, opened and crushed and put into pudding. Pt continues to refuse to take medications. Wasted with Argelia Mukherjee RN.
[2024-09-14] VITALS: BP 155/83; PULSE 115; PULSE 70; RESP 19; TEMP 35.8; O2SAT 91
[2024-09-14] MEDS: Dextrose 5 % and 0.9 % NaCl 1,000 ML 100 ML IV (00:34)
[2024-09-14] MEDS: CEFEPIME HCL 2 GM in 0.9 % SODIUM CHLORIDE 100 ML IV (03:00)
[2024-09-14 03:56] LABS: Albumin Level 3.1 g/dl (3.5-5.0); Chloride 118 mmol/L (98-107); Potassium 4.1 mmoL/L (3.5-5.1); Sodium 149 mmol/L (136-145)
[2024-09-14 03:58] LABS: Hematocrit 26.1 % (37.0-47.0); Hemoglobin 8.2 g/dL (12.2-16.2); Immature Granulocytes # 0.11 10^3uL; Immature Granulocytes % 1.2 %; Lymphocytes # 0.7 K/mm3 (0.7-4.5); Mean Corpuscular HGB Conc 31.4 g/dL (31.8-35.4); Mean Corpuscular Hemoglobin 21.7 pg (27.0-31.2); Monocytes # 0.3 K/mm3 (0.1-1.0); Monocytes % 3.1 % (1.7-9.3); Neutrophils # 8.1 K/mm3 (1.8-7.8); Neutrophils % 87.7 % (37.0-80.0); Nucleated Red Blood Cells # 0.03 10^3/uL; Nucleated Red Blood Cells % 0.3 %; Platelet Count 72 K/mm3 (142-424); Red Blood Count 3.78 M/mm3 (4.20-5.40); Red Cell Distribution Width 18.1 % (11.5-17.5); Red Cell Distribution Width-SD 43.4 fL; White Blood Count 9.2 K/mm3 (4.8-10.8)
[2024-09-14 03:59] LABS: Alanine Aminotransferase 24 U/L (12-78); Alkaline Phosphatase 99 U/L (38-126); Anion Gap 8.1 mEq/L (5-15); Aspartate Amino Transferase 28 U/L (14-36); Bilirubin,Total 0.2 mg/dl (0.2-1.3); Blood Urea Nitrogen 35 mg/dl (7-17); Calcium 8.8 mg/dl (8.4-10.2); Carbon Dioxide 27 mmol/L (22.0-30.0); Creatinine Clearance Estimated 38 mL/min (50-200); Estimated Glomerular Filt Rate 44 ml/min (>60); GFR (African American) 53 ML/MIN (>60); Globulin 3.2 g/dL (1.3-3.2); Glucose 110 mg/dl (74-100); Total Protein,Serum 6.3 g/dl (6.3-8.2)
[2024-09-14 04:00] VITALS: BP 185/115; PULSE 80; PULSE 90; RESP 15; TEMP 36.4; O2SAT 95; BMI 22.5
[2024-09-14 04:00] LABS: Magnesium 1.9 mg/dl (1.6-2.3)
--- NOTE | 2024-09-14 04:14 | PC.NURSE ---
nurse is aware of abn v/s
[2024-09-14 04:24] LABS: Vancomycin,Trough 20.9 ug/mL (5.0-10.0)
--- NOTE | 2024-09-14 04:42 | PC.NURSE ---
lab called to report critical vanc trough 20.9, spoke with thomas bundy [facility] who stated no change will be made to the current dose but another trough should be drawn tomorrow afternoon
[2024-09-14 05:07] LABS: POC Glucose,Bedside 118 (70-110)
[2024-09-14 05:07] LABS: POC Glucose,Bedside 77 (70-110)
[2024-09-14] MEDS: HYDROCORTISONE SOD SUCCINATE 100MG VIAL 50 MG IV (06:20)
[2024-09-14] MEDS: LEVOTHYROXINE SODIUM 100 MCG VIAL IV (06:21)
[2024-09-14 08:00] VITALS: BP 198/113; PULSE 71; RESP 17; TEMP 36.7; O2SAT 99
[2024-09-14] MEDS: LEVOFLOXACIN/D5W 750 MG/150 ML 750 MG/150 ML PIGGYBACK 100 MG IV (09:38)
--- NOTE | 2024-09-14 10:02 | PC.NURSE ---
Addendum entered by Dashawn Sales RN 09/14/24 12:16: PT BECAME MORE RESPONSIVE LATER IN THE DAY SO I PERFORMED A 2ND BESIDE SWALLOW EVALUATION. SHE DID MUCH BETTER THE 2ND TIME AND WAS ABLE TO TOLERATE MEDICATIONS CRUSHED IN APPLESAUCE FOLLOWED BY SIPS OF WATER. Original Note: PT IN CONFUSED AND NON-VERBAL, SHE IS UNABLE TO FOLLOW COMMANDS OR COMMUNICATE WITH STAFF. SHE IS CURRENTLY LYING ON HER LEFT SIDE IN THE POSITION RESTING AND APPEARS COMFORTABLE. I ASSESSED HER ABILITY TO OBEY COMMANDS AND SWALLOW. I OFFERED HER APPLESAUCE SO THAT I COULD ADMINISTER MORNING MEDICATIONS, BUT SHE WAS UNABLE TO PARTICIPATE AND WOULD BECOME HIGHLY AGITATED AND PULL AWAY. AT THIS TIME PT IS UNABLE TO TOLERATE PO INTAKE OR TAKE PO MEDICATIONS.
[2024-09-14 10:40] LABS: POC Glucose,Bedside 85 (70-110)
[2024-09-14] MEDS: HYDROCODONE/APAP 5/325 MG TABLET 1 TAB PO ×3 (10:45→20:51)
[2024-09-14] MEDS: DIVALPROEX SOD SPRINKLE 125MG CAPSULE 250 MG PO ×4 (10:46→20:52)
[2024-09-14] MEDS: APIXABAN 5MG TABLET 5 MG PO ×2 (10:46→20:49)
[2024-09-14] MEDS: OLANZapine 5 MG ODT TABLET 7.5 MG SL ×2 (10:47→20:50)
[2024-09-14] MEDS: cloNIDine 0.1MG TABLET 0.1 MG PO ×3 (10:48→20:51)
[2024-09-14] MEDS: POLYETHYLENE GLYCOL 3350 17 GM PACKET PO (10:54)
[2024-09-14 11:49] VITALS: BP 154/75; PULSE 57; RESP 16; TEMP 35.9; O2SAT 98
[2024-09-14] MEDS: levoFLOXacin 750 MG TABLET PO (13:05)
[2024-09-14 15:47] VITALS: BP 167/81; PULSE 53; RESP 16; TEMP 35.5; O2SAT 99
--- NOTE | 2024-09-14 15:48 | EXP.ACUTE.PN ---
Subjective *Date: 09/14/24 *Time: 15:48 Interval history: Patient is more interactive but frankly delirious and not following directions. No meaningful interaction. Appears quite agitated. Remained stable on room air. Afebrile. Has pulled all IVs. Medical Exam Vital signs and Labs for Last 24 Hours: Vital Signs Temp Pulse Pulse Resp BP Pulse Ox O2 Del Method 09/14/24 11:49 96.6 F L 57 L 16 154/75 H 98 Room Air 09/14/24 11:00 Room Air 09/14/24 09:00 Room Air 09/14/24 08:00 Room Air 09/14/24 08:00 98.1 F 71 17 198/113 H 99 Room Air 09/14/24 06:45 Room Air 09/14/24 05:00 Room Air 09/14/24 04:00 80 09/14/24 04:00 97.6 F 90 15 185/115 H 95 Room Air 09/14/24 03:00 Room Air 09/14/24 01:00 Room Air 09/14/24 00:00 70 09/14/24 00:00 96.4 F L 115 H 19 155/83 H 91 L Room Air 09/13/24 23:00 Room Air 09/13/24 21:00 Room Air 09/13/24 20:00 78 09/13/24 20:00 96.6 F L 82 22 186/83 H 98 Room Air 09/13/24 19:57 97 Room Air 09/13/24 19:00 Room Air 09/13/24 18:00 84 24 173/88 H 95 Room Air 09/13/24 17:00 83 30 H 147/80 H 100 Room Air 09/13/24 17:00 Room Air 09/13/24 16:00 97.3 F L 75 22 112/51 L 100 Room Air 09/13/24 16:00 80 09/13/24 16:00 100 Room Air Intake and Output 09/13/24 09/14/24 09/14/24 23:59 07:59 15:59 Intake Total 544 / 2214.099 1120 / 1360 240 / 1360 Output Total 65 / 326 475 / 475 Balance 479 / 1888.099 645 / 885 240 / 885 Intake: Intake, Oral Amount 240 / 240 Intake, Total IV Amount 544 / 1957 1120 / 1120 Cefepime HCl 2 gm In 0.9 % 100 / 100 100 / 100 Sodium Chloride 100 ml @ 200 mls/hr IV Q12H [facility] Rx#:[id number] Dextrose 5 % and 0.9 % NaCl 1, 179 / 627 1020 / 1020 000 ml @ 100 mls/hr IV .Q10H [facility] Rx#:[id number] Vancomycin HCl 1,000 mg In 0.9 265 / 265 % Sodium Chloride 250 ml @ 125 mls/hr IV Q24H [facility] Rx#:[id number] Output: Output, Urine Amount 38 / 299 475 / 475 Output, Urine Amount (Catheter) Jimenez Other: Number of Unmeasured Voids 0 0 Weight 61.28 kg Patient Weight 09/14/24 23:59 Weight 61.28 kg Laboratory Results - last 24 hr 09/12/24 13:50: Urine Color Yellow, Urine Appearance Cloudy, Urine pH 6.0, Ur Specific [place] 1.020, Urine Protein Trace, Urine Glucose (UA) Negative, Urine Ketones Negative, Urine Blood Negative, Urine Nitrate Negative, Urine Bilirubin Negative, Urine Urobilinogen 1.0, Ur Leukocyte Esterase Trace, Urine RBC None, Urine WBC 10-20, Ur Squamous Epith Cells 3-5, Urine Bacteria 4+ 09/13/24 16:51: POC Glucose 89 09/13/24 19:57: POC Glucose 77 09/13/24 22:43: POC Glucose 118 H 09/14/24 03:41: WBC 9.2, RBC 3.78 L, Hgb 8.2 L, Hct 26.1 L, MCV 69.0 L, MCH 21.7 L, MCHC 31.4 L, RDW 18.1 H, Plt Count 72 L, Neut % (Auto) 87.7 H, Lymph % (Auto) 8.0 L, [place] % (Auto) 3.1, Eos % (Auto) 0.0 L, Baso % (Auto) 0.0 L, Neut # (Auto) 8.1 H, Lymph # (Auto) 0.7, [place] # (Auto) 0.3, Eos # (Auto) 0.0, Baso # (Auto) 0.0, Sodium 149 H, Potassium 4.1, Chloride 118 H, Carbon Dioxide 27, Anion Gap 8.1, BUN 35 H, Creatinine 1.20 H, Estimated Creat Clear 38, Estimated GFR 44 L, Est GFR ( Amer) 53 L, Glucose 110 H D, Calcium 8.8, Magnesium 1.9, Total Bilirubin 0.2, AST 28, ALT 24, Alkaline Phosphatase 99, Total Protein 6.3, Albumin 3.1 L D, Globulin 3.2, Albumin/Globulin Ratio 1.0 L, Vancomycin Trough 20.9 H 09/14/24 06:32: POC Glucose 85 I & O for Labs for Last 24 Hours: Intake & Output 09/11/24 09/12/24 09/13/24 09/14/24 23:59 23:59 23:59 23:59 Intake Total 86.626 / 86.626 2214.099 / 2214.099 1360 / 1360 Output Total 245 / 255 326 / 326 475 / 475 Balance -158.374 / -093.840 7599.099 / 1888.099 885 / 885 Weight 57.181 kg 57.24 kg 61.28 kg Microbiology Reports for the Last 24 Hours: Microbiology 09/12/24 14:43 Blood Blood Culture - Preliminary 09/12/24 14:43 Blood Blood Culture - Preliminary 09/12/24 18:33 Anus CRE Surveillance Culture - Final Negative 09/12/24 13:50 Urine,Clean Catch Urine Culture - Preliminary Gram Negative Rods 09/13/24 11:32 Sputum - Expectorated Sputum Gram Stain - Final Constitutional: Present mild distress, thin, disheveled and agitated Head: Present atraumatic Respiratory: Present normal respiratory effort; Absent rhonchi, wheezes or crackles Cardiac: Present Reg Rate and Rhythm GI: Present soft; Absent distention Neuro: Present alert and awake Comment:: Spontaneous movement. Not following commands. Appears agitated. Not opening eyes. Nurse able to get patient to take medications orally without cough Assessment and Plan *Assessment and plan (1) Septic shock: Status: Acute Category: Medical Code(s): A41.9 - Sepsis, unspecified organism; R65.21 - Severe sepsis with septic shock (2) Hypothyroidism: Status: Acute Category: Medical Code(s): E03.9 - Hypothyroidism, unspecified (3) Pneumonia: Status: Acute Category: Medical Code(s): J18.9 - Pneumonia, unspecified organism (4) Acute hypoxic respiratory failure: Status: Acute Category: Medical Code(s): J96.01 - Acute respiratory failure with hypoxia (5) Atrial fibrillation: Problem Comment: history of Status: Acute Category: Medical Code(s): I48.91 - Unspecified atrial fibrillation (6) Dementia: Status: Acute Category: Medical Code(s): F03.90 - Unspecified dementia, unspecified severity, without behavioral disturbance, psychotic disturbance, mood disturbance, and anxiety (7) Seizure disorder: Status: Acute Category: Medical Code(s): G40.909 - Epilepsy, unspecified, not intractable, without status epilepticus Plan 74-year-old long-term care patient with dementia from intermediate. Presents with septic shock versus myxedema coma. Showing some increased mobility today, more agitated and active but not responding to questions or following commands. Nurse able to get patient to tolerate meds with applesauce. Stable on room air. Maintaining body temperature. Blood pressure elevated today. Continues to require inpatient management. Problems addressed as follows: #Sepsis with septic shock Hypotension, lactic acidosis, tachycardia, improving Pneumonia noted on chest imaging as well as mild urinary tract infection Body temperature and blood pressure stable, blood pressure actually increasing today. -Transition to oral Levaquin. As she has lost her IVs, will cover broadly with Levaquin 750 mg p.o. daily. Discontinue IV cefepime and vancomycin -Blood and urine culture still pending -Wean stress dose steroids today to hydrocortisone 25mg q6h IV, stop tomorrow - White count normal at 9.2, hemoglobin 8.2. - Electrolytes and kidney function somewhat worse today, sodium 149, chloride 118, creatinine 1.2 with BUN 35. Not tolerating much free water. Due to loss of IVs, unable to give free water via IV. Will continue to encourage p.o. intake #Hypothyroidism #Hypothermia Possible element of myexedema contributing to altered mental status. TSH of 117 on 09/06/2024 with repeat down to 84 on admission. - Continuing IV levothyroxine 100 mg daily for 3 days, will transition to oral levothyroxine 125 mcg daily in the morning - monitor blood pressure and hypothermia - Resume clonidine 0.1 mg 3 times a day per home regimen #Dementia #Seizure disorder - Resume Depakote 250 mg 4 times a day, Remeron 15 mg nightly, olanzapine 7.5 mg twice daily Patient has severe acute illness on top of significant chronic debility with worsening decompensation necessitating significant support for all ADLs. Taking into account her presentation with septic shock versus myxedema coma on top of her underlying chronic conditions, dementia, total care needs at nursing facility, would recommend patient be considered for end-of-life hospice care. This is due to her septic shock, dementia, seizure disorder, current encephalopathy and lack of any meaningful response to physical exam at this time along with lack of any nutritional intake. DNR/DNI Holding anticoagulation in the setting of hemoptysis Comfort feeds however not alert/interactive enough to eat at this time
[2024-09-14] MEDS: HYDROCORTISONE SOD SUCCINATE 100MG VIAL 25 MG IV (16:46)
[2024-09-14 20:00] VITALS: BP 162/73; PULSE 95; RESP 14; TEMP 36.4; O2SAT 98
[2024-09-14] MEDS: BUSPIRONE HCL 5 MG TABLET PO (20:50)
[2024-09-14] MEDS: MELATONIN 5MG TABLET 5 MG PO (20:51)
[2024-09-14] MEDS: MIRTAZAPINE 15 MG TABLET PO (20:51)
[2024-09-14] MEDS: PANTOPRAZOLE 40MG TABLET 40 MG PO (20:52)
[2024-09-14 21:30] LABS: POC Glucose,Bedside 70 (70-110)
[2024-09-15] VITALS: BP 167/76; PULSE 50; RESP 14; TEMP 36.4; O2SAT 92
[2024-09-15 04:00] VITALS: BP 174/76; PULSE 91; TEMP 36.4; O2SAT 100; BMI 21.2
[2024-09-15] MEDS: LEVOTHYROXINE 125MCG (0.125MG) TAB 125 MCG PO (06:05)
[2024-09-15 06:48] LABS: POC Glucose,Bedside 73 (70-110)
[2024-09-15 06:48] LABS: POC Glucose,Bedside 53 (70-110)
--- NOTE | 2024-09-15 07:35 | PC.NURSE ---
Repeat FSBS 76.
[2024-09-15 07:41] LABS: POC Glucose,Bedside 76 (70-110)
[2024-09-15 07:57] VITALS: BP 164/84; PULSE 51; RESP 17; TEMP 36.4; O2SAT 97
[2024-09-15 08:45] VITALS: BMI 21.2
--- NOTE | 2024-09-15 08:45 | PC.NURSE ---
Attempted to give pt. morning medication. Pt. became increasingly agitated. No meaningful interaction noted and pt. was unable to follow directions. Multiple attempts made to give medication without success. Pt. repositioned to the right side. Pt. remains contracted and in position. Respirations even and unlabored. Temp sensing catheter in place and draining to gravity.
--- NOTE | 2024-09-15 08:49 | PC.NURSE ---
Lab at bedside for blood draw. Pt. agitated and uncooperative. Unable to obtain lab work at this time.
[2024-09-15] MEDS: APIXABAN 5MG TABLET 5 MG PO ×2 (11:27→19:47)
[2024-09-15] MEDS: cloNIDine 0.1MG TABLET 0.1 MG PO ×2 (11:27→19:47)
[2024-09-15] MEDS: BUSPIRONE HCL 5 MG TABLET PO ×2 (11:28→19:47)
[2024-09-15] MEDS: HYDROCODONE/APAP 5/325 MG TABLET 1 TAB PO ×2 (11:28→19:47)
[2024-09-15] MEDS: OLANZapine 5 MG ODT TABLET 7.5 MG SL ×2 (11:29→19:48)
[2024-09-15] MEDS: POLYETHYLENE GLYCOL 3350 17 GM PACKET PO (11:29)
--- NOTE | 2024-09-15 11:43 | PC.NURSE ---
FSBS 46. Dr. Barrientos notified. Pt. tolerated 720 ml of OJ PO. Will recheck FSBS in 1 hour.
[2024-09-15 12:00] VITALS: BP 174/82; PULSE 60; RESP 16; TEMP 36.2; O2SAT 98
[2024-09-15] MEDS: ERTAPENEM SODIUM 1 GM VIAL IM (12:05)
[2024-09-15 12:13] LABS: POC Glucose,Bedside 92 (70-110)
--- NOTE | 2024-09-15 15:53 | P.PN_ITS ---
Subjective *Date: 09/15/24 *Time: 17:10 Interval history: Less than active today. Did not open eyes or respond to voice. Not following commands. Will afebrile. Remains normothermic and maintaining body temperature. Blood pressure elevated. Intermittently taking medications. Medical Exam Vital signs and Labs for Last 24 Hours: Vital Signs Temp Pulse Resp BP Pulse Ox O2 Del Method 09/15/24 15:00 Room Air 09/15/24 13:00 Room Air 09/15/24 12:00 97.2 F L 60 16 174/82 H 98 09/15/24 11:00 Room Air 09/15/24 09:00 Room Air 09/15/24 08:00 Room Air 09/15/24 07:57 97.5 F L 51 L 17 164/84 H 97 Room Air 09/15/24 06:56 Room Air 09/15/24 05:00 Room Air 09/15/24 04:00 97.5 F L 91 H 174/76 H 100 Room Air 09/15/24 03:00 Room Air 09/15/24 01:00 Room Air 09/15/24 00:00 97.5 F L 50 L 14 167/76 H 92 L Room Air 09/14/24 23:00 Room Air 09/14/24 21:00 Room Air 09/14/24 20:00 Room Air 09/14/24 20:00 97.5 F L 95 H 14 162/73 H 98 Room Air 09/14/24 18:34 Room Air 09/14/24 17:00 Room Air Intake and Output 09/14/24 09/15/24 09/15/24 23:59 07:59 15:59 Intake Total 120 / 120 Output Total 275 / 850 250 / 250 Balance -275 / 630 -130 / -130 Intake: Intake, Oral Amount 120 / 120 Output: Output, Urine Amount 275 / 850 250 / 250 Other: Number of Unmeasured Voids 0 0 Weight 145.8 kg 57.742 kg Patient Weight 09/15/24 23:59 Weight 57.742 kg Laboratory Results - last 24 hr 09/14/24 20:46: POC Glucose 70 09/15/24 06:03: POC Glucose 53 L 09/15/24 06:41: POC Glucose 73 09/15/24 07:33: POC Glucose 76 09/15/24 12:03: POC Glucose 92 I & O for Labs for Last 24 Hours: Intake & Output 09/12/24 09/13/24 09/14/24 09/15/24 23:59 23:59 23:59 23:59 Intake Total 86.626 / 86.626 2214.099 / 2214.099 1360 / 1480 120 / 120 Output Total 245 / 255 326 / 326 750 / 850 250 / 250 Balance -158.374 / -105.780 0727.099 / 1888.099 610 / 630 -130 / -130 Weight 57.181 kg 57.24 kg 61.28 kg 57.742 kg Microbiology Reports for the Last 24 Hours: Microbiology 09/13/24 11:32 Sputum - Expectorated Sputum Gram Stain - Final 09/13/24 11:32 Sputum - Expectorated Sputum Sputum Culture - Preliminary 09/12/24 13:50 Urine,Clean Catch Urine Culture - Final Escherichia coli Constitutional: Present mild distress, thin, disheveled and agitated Head: Present atraumatic Respiratory: Present normal respiratory effort; Absent rhonchi, wheezes or crackles Cardiac: Present Reg Rate and Rhythm GI: Present soft; Absent distention Comment:: Spontaneous movement. Not following commands. Obtunded. Not opening eyes or following command. Inconsistently will take medications without coughing when she swallows Assessment and Plan *Assessment and plan (1) Septic shock: Status: Acute Category: Medical Code(s): A41.9 - Sepsis, unspecified organism; R65.21 - Severe sepsis with septic shock (2) Hypothyroidism: Status: Acute Category: Medical Code(s): E03.9 - Hypothyroidism, unspecified (3) Pneumonia: Status: Acute Category: Medical Code(s): J18.9 - Pneumonia, unspecified organism (4) Acute hypoxic respiratory failure: Status: Acute Category: Medical Code(s): J96.01 - Acute respiratory failure with hypoxia (5) Atrial fibrillation: Problem Comment: history of Status: Acute Category: Medical Code(s): I48.91 - Unspecified atrial fibrillation (6) Dementia: Status: Acute Category: Medical Code(s): F03.90 - Unspecified dementia, unspecified severity, without behavioral disturbance, psychotic disturbance, mood disturbance, and anxiety (7) Seizure disorder: Status: Acute Category: Medical Code(s): G40.909 - Epilepsy, unspecified, not intractable, without status epilepticus Plan 74-year-old long-term care patient with dementia from skilled nursing. Presents with septic shock versus myxedema coma. Less responsive today. Maintaining body temperature. Having drops in glucose to no intake. Continues to require patient management. Problems addressed as follows: #Sepsis with septic shock # E. coli UTI Hypotension, lactic acidosis, tachycardia, improving Pneumonia noted on chest imaging as well as mild urinary tract infection -Urine culture positive for E. coli, resistant to levofloxacin. Transitioned to Bactrim yesterday but unable to tolerate oral. Will administer ertapenem IM 1 g daily -Blood culture still pending - Discontinue stress dose steroids today. - White count normal at 6.2, hemoglobin 7.7. BUN 42, creatinine 1.2. Sodium somewhat improved at 144. Chloride remains high at 116. magnesium 2.1. Potassium 4.6. - Repeat CBC, CMP, magnesium ordered for the morning Hypoglycemia: Glucoses have been running low with intermittent hypoglycemia necessitating orange juice or oral dextrose gel. Monitoring ACHS #Hypothyroidism #Hypothermia Possible element of myexedema contributing to altered mental status. TSH of 117 on 09/06/2024 with repeat down to 84 on admission. - oral levothyroxine 125 mcg daily in the morning - monitor blood pressure and hypothermia - clonidine 0.1 mg 3 times a day per home regimen #Dementia #Seizure disorder - Resume Depakote 250 mg 4 times a day, Remeron 15 mg nightly, olanzapine 7.5 mg twice daily Patient has severe acute illness on top of significant chronic debility with worsening decompensation necessitating significant support for all ADLs. Taking into account her presentation with septic shock versus myxedema coma on top of her underlying chronic conditions, dementia, total care needs at nursing facility, would recommend patient be considered for end-of-life hospice care. This is due to her septic shock, dementia, seizure disorder, current encephalopathy and lack of any meaningful response to physical exam at this time along with lack of any nutritional intake. DNR/DNI Holding anticoagulation in the setting of hemoptysis Comfort feeds however not alert/interactive enough to eat at this time
[2024-09-15 16:00] VITALS: BP 180/77; PULSE 56; RESP 16; TEMP 36; O2SAT 96
--- NOTE | 2024-09-15 16:02 | PC.NURSE ---
RN attempted to administer 1300 meds. patient was lying in a position. tried to awake patient with SRNA in the room. HOB elevated and patient repositioned, patient went back to right side lying in position contracted. patient became agitated and medication administration unsuccessful after multiple attempts. RR even and unlabored. bed alarm on, bed in low position and locked
[2024-09-15 16:05] LABS: POC Glucose,Bedside 65 (70-110)
[2024-09-15 16:36] LABS: Eosinophils # 0.1 Kmm3 (0.0-0.4); Eosinophils % 1.6 % (0.1-12.0); Hematocrit 24.8 % (37.0-47.0); Hemoglobin 7.7 g/dL (12.2-16.2); Immature Granulocytes # 0.08 10^3uL; Immature Granulocytes % 1.3 %; Mean Corpuscular Hemoglobin 21.6 pg (27.0-31.2); Mean Corpuscular Volume 69.7 fl (81-99); Monocytes # 0.5 K/mm3 (0.1-1.0); Monocytes % 8.5 % (1.7-9.3); Neutrophils # 3.5 K/mm3 (1.8-7.8); Neutrophils % 56.6 % (37.0-80.0); Nucleated Red Blood Cells # 0.03 10^3/uL; Nucleated Red Blood Cells % 0.5 %; Platelet Count 94 K/mm3 (142-424); Red Blood Count 3.56 M/mm3 (4.20-5.40); Red Cell Distribution Width 18.4 % (11.5-17.5); Red Cell Distribution Width-SD 44.7 fL; White Blood Count 6.2 K/mm3 (4.8-10.8)
[2024-09-15 16:42] LABS: Chloride 116 mmol/L (98-107); Potassium 4.6 mmoL/L (3.5-5.1); Sodium 144 mmol/L (136-145)
[2024-09-15 16:44] LABS: Blood Urea Nitrogen 42 mg/dl (7-17); Creatinine Clearance Estimated 38 mL/min (50-200); Estimated Glomerular Filt Rate 44 ml/min (>60); GFR (African American) 53 ML/MIN (>60)
[2024-09-15 16:45] LABS: Alanine Aminotransferase 21 U/L (12-78); Alkaline Phosphatase 105 U/L (38-126); Anion Gap 4.6 mEq/L (5-15); Aspartate Amino Transferase 28 U/L (14-36); Bilirubin,Total 0.2 mg/dl (0.2-1.3); Carbon Dioxide 28 mmol/L (22.0-30.0); Glucose 62 mg/dl (74-100)
[2024-09-15 16:57] LABS: Magnesium 2.1 mg/dl (1.6-2.3); Phosphorous 2.9 mg/dl (2.5-4.5)
[2024-09-15 17:30] LABS: Vancomycin,Trough 8.5 ug/mL (5.0-10.0)
[2024-09-15] MEDS: MELATONIN 5MG TABLET 5 MG PO (19:47)
[2024-09-15] MEDS: PANTOPRAZOLE 40MG TABLET 40 MG PO (19:47)
[2024-09-15] MEDS: MIRTAZAPINE 15 MG TABLET PO (19:47)
[2024-09-15] MEDS: DIVALPROEX SOD SPRINKLE 125MG CAPSULE 250 MG PO (19:48)
--- NOTE | 2024-09-15 19:59 | PC.NURSE ---
patient was in a good mood and drinking OJ therefore 2100 medications were administered early based on patient mood. patient took all medications crushed in applesauce. fsbs 67.
[2024-09-15 20:00] VITALS: BP 158/89; PULSE 53; RESP 14; TEMP 36.2; O2SAT 100
[2024-09-15 20:04] LABS: POC Glucose,Bedside 67 (70-110)
[2024-09-15 20:43] LABS: POC Glucose,Bedside 77 (70-110)
[2024-09-16] VITALS: BP 172/94; PULSE 47; RESP 14; TEMP 36.2; O2SAT 100
[2024-09-16 04:00] VITALS: BP 185/90; PULSE 82; RESP 14; TEMP 35.8; O2SAT 99; BMI 22.9
--- NOTE | 2024-09-16 04:49 | PC.NURSE ---
patient has slept well tonight with no behaviors noted.
[2024-09-16] MEDS: DEXTROSE 15GM PACKET 15 GM PO ×3 (05:05→10:30)
--- NOTE | 2024-09-16 05:33 | PC.NURSE ---
fsbs 50. gave glucose pack. fsbs 48. gave glucose pack and popsicle. fsbs 78
[2024-09-16 05:42] LABS: POC Glucose,Bedside 50 (70-110)
[2024-09-16 05:42] LABS: POC Glucose,Bedside 75 (70-110)
[2024-09-16] MEDS: LEVOTHYROXINE 125MCG (0.125MG) TAB 125 MCG PO (06:37)
--- NOTE | 2024-09-16 07:32 | EXP.DC.SUM ---
General Admission date:: 09/12/24 Discharge date: 09/16/24 HPI HPI HPI: This is a 74-year-old female with a past medical history of hypertension, hyperlipidemia, CVA, dementia, atrial fibrillation, CKD, seizure disorder who presents from her living facility for hacking cough with light red mucous plug noted. EMS picked her up at her living facility and states that she had 1 more episode with them of light red mucus and were told by nursing staff at the facility that she had just eaten red ice cream. On arrival to the emergency room she was neurologically at baseline. Nonverbal at baseline with crying out spells. Alert with eyes open and pupils reactive. Further review of systems unable to be obtained secondary to patient's mental status. Emergency department workup notable for intermittent labile blood pressures. She was also noted to be hypoxic requiring oxygen and hypothermic to 90 degrees. Blood pressure improved after IV sepsis fluid bolus. Labs notable for normal white cell count but neutrophil predominant, Platelet count of 71,000, lactic acid of 2.2, TSH of 84 with previous TSH of 117, urinalysis with 4+ bacteria. Chest x-ray notable for probable right upper lobe pneumonia. Given her above-mentioned evaluation, sepsis protocol was initiated. She is an placed on broad-spectrum antibiotics after blood cultures obtained. She is admitted to hospital service Hospital Course Hospital Course Hospital Course: 74-year-old long-term care patient with dementia from residential. Presented with septic shock versus myxedema coma. Has shown the ability to maintain her blood pressure and body temperature but remains minimally responsive to staff. Poor p.o. intake. Poor compliance taking meds. Not interacting with staff in any meaningful way. Has been irritable with attempts to draw labs so labs have been unsuccessful the past 2 days. Urine culture growing E. coli, currently on IM ertapenem. Plan to continue regimen. Stable to discharge back to residential for further management. Strongly recommend hospice for this patient. Problems addressed as follows: #Sepsis with septic shock # E. coli UTI Hypotension, lactic acidosis, tachycardia present on admission. Pneumonia noted on chest imaging as well as urinary tract infection. Urine positive for E. coli that was sensitive to Bactrim and ertapenem but resistant to Levaquin. Patient unable to take oral medication consistently therefore we will continue ertapenem 1 g IM daily. Needs 5 more doses to complete 10-day course. Blood cultures remain negative. Has weaned off of stress dose steroids. White count at last check 2 days ago was 6.2. Hemoglobin was low at 7.7. Patient has chronic anemia. Kidney function was abnormal with BUN 42 and creatinine 1.2. I have not been able to check in 48 hours due to patient intolerance of lab draws. Severe protein calorie malnutrition Hypoglycemia: Glucoses have been running intermittently low. Recommend continuing fingersticks ACHS. If glucose less than 60, recommend orange juice or popsicle with recheck in 15 minutes. She has responded with oral replacement for the past 48 hours. Likely secondary to her poor nutritional intake #Hypothyroidism #Hypothermia Suspected element of myxedema contributing to her altered mental status, hypothermia, hypotension. TSH of 117 on 09/06/2024 with repeat down to 84 on admission. Continue oral levothyroxine 125 mcg daily. Hypertension: Continue home clonidine 0.1 mg 3 times a day. #Dementia #Seizure disorder - Appears to have end-stage dementia. Complicates her care and compliance with medication. Resume Depakote 250 mg 4 times a day, Remeron 15 mg nightly, olanzapine 7.5 mg twice daily Patient has severe acute illness on top of significant chronic debility: severe end-stage dementia, uncontrolled hypothyroidism with presentation of myxedema coma, chronic HFpEF, and seizure disorder. She came in frankly obtunded and nonresponsive in septic shock. While she has had some response to therapy, she is still full assist, inconsistently taking medications, not eating enough nutrition to sustain life long-term. In light of her conditions and cognitive decline I recommend consideration for hospice care as her life expectancy without meaningful nutrition and if she does not take her meds consistently is likely weeks to months. I would recommend completing antibiotic course at this time but feel further rounds of treatment when patient decompensates again, aggressive nutritional measures such as feeding tubes, or IV fluids, would be futile. For this patient I recommend hospice care. I recommend comfort measures including pain medications, anxiety medications, comfort feeds, discontinuation of life-prolonging treatment after completion of empiric 7-day course of antibiotics. She is not at this time permanently unconscious but given her severely altered cognition and severely advanced dementia, her diseases are end-stage and in my opinion warrant comfort/hospice care moving forward. Total time spent on discharge 32 minutes in counseling, documentation, chart review, and direct care with patient. Exam Data for Last 24 hours Vital signs and Labs for Last 24 Hours: Temp Pulse Resp BP Pulse Ox O2 Del Method 96.4 F L 82 14 185/90 H 99 Room Air 09/16/24 04:00 09/16/24 04:00 09/16/24 04:00 09/16/24 04:00 09/16/24 04:00 09/16/24 04:50 Laboratory Results - last 24 hr 09/14/24 16:42: POC Glucose 77 09/15/24 07:33: POC Glucose 76 09/15/24 12:03: POC Glucose 92 09/15/24 15:51: POC Glucose 65 L 09/15/24 16:25: WBC 6.2 D, RBC 3.56 L, Hgb 7.7 L, Hct 24.8 L, MCV 69.7 L, MCH 21.6 L, MCHC 31.0 L, RDW 18.4 H, Plt Count 94 L D, MPV TNP, Neut % (Auto) 56.6, Lymph % (Auto) 32.0, White % (Auto) 8.5, Eos % (Auto) 1.6, Baso % (Auto) 0.0 L, Neut # (Auto) 3.5, Lymph # (Auto) 2.0, White # (Auto) 0.5, Eos # (Auto) 0.1, Baso # (Auto) 0.0, Sodium 144, Potassium 4.6, Chloride 116 H, Carbon Dioxide 28, Anion Gap 4.6 L, BUN 42 H, Creatinine 1.20 H, Estimated Creat Clear 38, Estimated GFR 44 L, Est GFR ( Amer) 53 L, Glucose 62 L, Calcium 9.0, Phosphorus 2.9, Magnesium 2.1 D, Total Bilirubin 0.2, AST 28, ALT 21, Alkaline Phosphatase 105, Total Protein 6.0 L, Albumin 3.0 L, Globulin 3.0, Albumin/Globulin Ratio 1.0 L, Vancomycin Trough 8.5 09/15/24 19:34: POC Glucose 67 L 09/16/24 05:02: POC Glucose 50 L 09/16/24 05:28: POC Glucose 75 I & O for Last 24 hours: Intake & Output 09/13/24 09/14/24 09/15/24 09/16/24 23:59 23:59 23:59 23:59 Intake Total 2214.099 / 2214.099 1360 / 1480 540 / 540 Output Total 326 / 326 750 / 850 901 / 976 700 / 700 Balance 1888.099 / 1888.099 610 / 630 -361 / -436 -700 / -700 Weight 57.24 kg 61.28 kg 57.742 kg 62.46 kg Microbiology Reports for the Last 24 Hours: Microbiology 09/13/24 11:32 Sputum - Expectorated Sputum Gram Stain - Final 09/13/24 11:32 Sputum - Expectorated Sputum Sputum Culture - Preliminary 09/12/24 13:50 Urine,Clean Catch Urine Culture - Final Escherichia coli Constitutional Constitutional: mild distress, thin, chronically ill appearing and somnolent *Routine HEENT Exam Head: Present normocephalic Eye: Present EOMI and PERRL ENT: Present mucous membranes moist *Routine Neck Exam Neck: Present supple; Absent lymphadenopathy *Routine Respiratory Exam Respiratory: Present CTA bilaterally; Absent respiratory distress, rhonchi, stridor, wheezes or crackles *Routine Cardiovascular Exam Cardiovascular: Present RRR *Routine Abdominal Exam Abdominal: Present soft and normoactive bowel sounds; Absent tenderness *Routine Rectal Exam Patient deferred: visual exam *Routine Exam Patient deferred: external exam *Routine Extremities Exam Extremities: Present edema (trace BLE); Absent cyanosis or clubbing *Routine Skin Exam Skin: Present intact and warm; Absent rash *Routine Neurological Exam Neurological: Present altered mental status and moving all extremities (Spontaneous movement, spends most of her time however curled in position) Comments: Nonresponsive to verbal or physical stimuli. Will move spontaneously. Refused morning meds, did not respond to staff to take meds. Results Data Completed and Pending Labs on day of discharge: Labs from last 24 hours 09/16/24 09/16/24 09/15/24 05:28 05:02 19:34 WBC RBC Hgb Hct MCV MCH MCHC RDW Plt Count MPV Neut % (Auto) Lymph % (Auto) White % (Auto) Eos % (Auto) Baso % (Auto) Neut # (Auto) Lymph # (Auto) White # (Auto) Eos # (Auto) Baso # (Auto) Sodium Potassium Chloride Carbon Dioxide Anion Gap BUN Creatinine Estimated Creat Clear Estimated GFR Est GFR ( Amer) Glucose POC Glucose 75 50 L 67 L Calcium Phosphorus Magnesium Total Bilirubin AST ALT Alkaline Phosphatase Total Protein Albumin Globulin Albumin/Globulin Ratio Vancomycin Trough 09/15/24 09/15/24 09/15/24 16:25 15:51 12:03 WBC 6.2 D RBC 3.56 L Hgb 7.7 L Hct 24.8 L MCV 69.7 L MCH 21.6 L MCHC 31.0 L RDW 18.4 H Plt Count 94 L D MPV TNP Neut % (Auto) 56.6 Lymph % (Auto) 32.0 White % (Auto) 8.5 Eos % (Auto) 1.6 Baso % (Auto) 0.0 L Neut # (Auto) 3.5 Lymph # (Auto) 2.0 White # (Auto) 0.5 Eos # (Auto) 0.1 Baso # (Auto) 0.0 Sodium 144 Potassium 4.6 Chloride 116 H Carbon Dioxide 28 Anion Gap 4.6 L BUN 42 H Creatinine 1.20 H Estimated Creat Clear 38 Estimated GFR 44 L Est GFR ( Amer) 53 L Glucose 62 L POC Glucose 65 L 92 Calcium 9.0 Phosphorus 2.9 Magnesium 2.1 D Total Bilirubin 0.2 AST 28 ALT 21 Alkaline Phosphatase 105 Total Protein 6.0 L Albumin 3.0 L Globulin 3.0 Albumin/Globulin Ratio 1.0 L Vancomycin Trough 8.5 09/15/24 09/14/24 07:33 16:42 WBC RBC Hgb Hct MCV MCH MCHC RDW Plt Count MPV Neut % (Auto) Lymph % (Auto) White % (Auto) Eos % (Auto) Baso % (Auto) Neut # (Auto) Lymph # (Auto) White # (Auto) Eos # (Auto) Baso # (Auto) Sodium Potassium Chloride Carbon Dioxide Anion Gap BUN Creatinine Estimated Creat Clear Estimated GFR Est GFR ( Amer) Glucose POC Glucose 76 77 Calcium Phosphorus Magnesium Total Bilirubin AST ALT Alkaline Phosphatase Total Protein Albumin Globulin Albumin/Globulin Ratio Vancomycin Trough Preliminary micro results at discharge 09/13/24 11:32 Sputum Culture - Preliminary Sputum - Expectorated Sputum 09/12/24 14:43 Blood Culture - Preliminary Blood 09/12/24 14:43 Blood Culture - Preliminary Blood DS: Diagnosis Discharge Diagnosis (1) Septic shock: Status: Acute Code(s): A41.9 - Sepsis, unspecified organism; R65.21 - Severe sepsis with septic shock (2) Hypothyroidism: Status: Acute Code(s): E03.9 - Hypothyroidism, unspecified (3) Pneumonia: Status: Acute Code(s): J18.9 - Pneumonia, unspecified organism (4) Acute hypoxic respiratory failure: Status: Acute Code(s): J96.01 - Acute respiratory failure with hypoxia (5) Atrial fibrillation: Status: Acute Code(s): I48.91 - Unspecified atrial fibrillation Problem details: history of (6) Dementia: Status: Acute Code(s): F03.90 - Unspecified dementia, unspecified severity, without behavioral disturbance, psychotic disturbance, mood disturbance, and anxiety (7) Seizure disorder: Status: Acute Code(s): G40.909 - Epilepsy, unspecified, not intractable, without status epilepticus (8) Severe protein-calorie malnutrition: Status: Acute Code(s): E43 - Unspecified severe protein-calorie malnutrition Meds Home Medications and Allergies Home Medications ?Medication ?Instructions ?Recorded ?Confirmed ?Type amiodarone 200 mg tablet 200 mg PO DAILY 10/25/23 09/12/24 History apixaban 5 mg tablet 5 mg PO BID 10/25/23 09/12/24 History melatonin 5 mg capsule 5 mg PO HS 10/25/23 09/12/24 History polyethylene glycol 3350 17 17 g PO DAILY 10/25/23 09/12/24 History gram/dose oral powder acetaminophen 500 mg tablet 500 mg PO Q6H PRN Pain 03/12/24 09/12/24 History clonidine HCl 0.1 mg tablet 0.1 mg PO TID 05/21/24 09/12/24 History mirtazapine 15 mg tablet (Remeron) 15 mg PO HS 06/26/24 09/12/24 History buspirone 5 mg tablet 5 mg PO TID 07/30/24 09/12/24 History ferrous sulfate 325 mg (65 mg 325 mg PO DAILY 07/30/24 09/12/24 History iron) tablet (FeroSul) lansoprazole 30 mg capsule,delayed 30 mg PO DAILY 07/30/24 09/12/24 History release hydrocodone 5 mg-acetaminophen 325 1 tab PO TID #90 tabs 07/31/24 09/12/24 Rx mg tablet olanzapine 5 mg tablet (Zyprexa) 7.5 mg PO BID 09/04/24 09/12/24 History divalproex 125 mg capsule,delayed 250 mg PO QID 09/10/24 09/12/24 History release sprinkle (Depakote Sprinkles) ertapenem 1 gram solution for 1 g IM Q24H 5 days #5 ea 09/16/24 Rx injection levothyroxine 125 mcg tablet 125 mcg PO DAILYDM 30 days #30 tabs 09/16/24 Rx (Synthroid) New Prescriptions to Start Prescriptions: Javier Joe levothyroxine [Synthroid] Javier Barrientos Allergies Allergy/AdvReac Type Severity Reaction Status Date / Time No Known Allergies Allergy Verified 09/04/24 14:39 Discharge Plan Disposition Patient Disposition: [facility] Condition: Undetermined Discharge Order Discharge Orders: Discharge Order (Routine); Ordered 09/16/24 Ordered By: Javier Barrientos Follow up Plan Prescriptions/Medication Reconciliation: New levothyroxine [Synthroid] 125 mcg Tablet 125 mcg PO DAILYDM 30 Days Qty: 30 0RF ertapenem 1 gram Recon Soln 1 g IM Q24H 5 Days Qty: 5 0RF Continued clonidine HCl 0.1 mg tablet 0.1 mg PO TID Rx Instructions: HOLD IF BP 100/60 OR BELOW buspirone 5 mg tablet 5 mg PO TID mirtazapine [Remeron] 15 mg tablet 15 mg PO HS acetaminophen 500 mg tablet 500 mg PO Q6H PRN (Reason: Pain) ferrous sulfate [FeroSul] 325 mg (65 mg iron) tablet 325 mg PO DAILY lansoprazole 30 mg capsule,delayed release(DR/EC) 30 mg PO DAILY olanzapine [Zyprexa] 5 mg tablet 7.5 mg PO BID amiodarone 200 mg tablet 200 mg PO DAILY apixaban 5 mg tablet 5 mg PO BID melatonin 5 mg capsule 5 mg PO HS polyethylene glycol 3350 17 gram/dose powder 17 g PO DAILY hydrocodone-acetaminophen 5-325 mg tablet 1 tab PO TID Qty: 90 0RF divalproex [Depakote Sprinkles] 125 mg capsule, delayed rel sprinkle 250 mg PO QID Discontinued levothyroxine 25 mcg tablet 25 mcg PO DAILY Qty: 90 3RF Problem Reconciliation Problems Reviewed?: Yes Patient Discharge Instructions ACTIVITY: Continue current activity DIET: continue same diet Patient Instructions: DI for Pneumonia -- Adult, DI for Urinary Tract Infection (UTI), DI for Sepsis -- Adult, DI for Respiratory Failure Print Language: Swedish Providers Primary Care Provider: Provider,Referral Admit Provider: Javier Barrientos Attending Provider: Javier Barrientos
[2024-09-16 08:00] VITALS: BP 136/114; PULSE 66; RESP 16; TEMP 35.5; O2SAT 95
[2024-09-16] MEDS: POLYETHYLENE GLYCOL 3350 17 GM PACKET PO (08:22)
[2024-09-16 08:55] LABS: POC Glucose,Bedside 88 (70-110)
--- NOTE | 2024-09-16 09:01 | PC.NURSE ---
tech notified this RN of pt temp of 95.9. Room temperature turned to max heat and numerous warm blankets applied.
[2024-09-16 10:36] LABS: POC Glucose,Bedside 51 (70-110)
[2024-09-16] MEDS: BISACODYL 10MG SUPP 10 MG RC (11:47)
[2024-09-16] MEDS: ERTAPENEM SODIUM 1 GM VIAL IM (11:47)
[2024-09-16] MEDS: BUSPIRONE HCL 5 MG TABLET PO (12:03)
[2024-09-16] MEDS: cloNIDine 0.1MG TABLET 0.1 MG PO (12:03)
--- NOTE | 2024-09-16 12:13 | PC.NURSE ---
pt fsbs 60. pt given orange juice and ice cream. tolerated well.
[2024-09-16 12:15] LABS: POC Glucose,Bedside 60 (70-110)
[2024-09-17 14:23] LABS: POC Glucose,Bedside 48 (70-110)
[2024-09-17 14:24] LABS: POC Glucose,Bedside 46 (70-110)
[2024-09-17 14:25] LABS: POC Glucose,Bedside 41 (70-110)
[2024-09-17 14:31] LABS: POC Glucose,Bedside 85 (70-110)
[2024-09-17 14:32] LABS: POC Glucose,Bedside 79 (70-110)
== END 2024-09-16 13:58 | DRG 871 ==
LOC: ER 17:22 → 2ND 23:18
PROVIDERS: Emergency Medicine; Admitting Provider Internal Medicine Adolescent Medicine; Emergency Provider Emergency Medicine; Visit Provider Internal Medicine Adolescent Medicine
DX: A41.9 Sepsis, unspecified organism (principal); E03.5 Myxedema coma; E43 Unspecified severe protein-calorie malnutrition; J18.9 Pneumonia, unspecified organism; R65.21 Severe sepsis with septic shock; R53.2 Functional quadriplegia; N39.0 Urinary tract infection, site not specified; F03.C11 Unspecified dementia, severe, with agitation; F05 Delirium due to known physiological condition; I13.0 Hypertensive heart and chronic kidney disease with heart failure and stage 1 through stage 4 chronic kidney disease, or unspecified chronic kidney disease; I50.32 Chronic diastolic (congestive) heart failure; R04.2 Hemoptysis; N17.9 Acute kidney failure, unspecified; G93.40 Encephalopathy, unspecified; Z16.23 Resistance to quinolones and fluoroquinolones; E03.9 Hypothyroidism, unspecified; I48.91 Unspecified atrial fibrillation; G40.909 Epilepsy, unspecified, not intractable, without status epilepticus; B96.20 Unspecified Escherichia coli [E. coli] as the cause of diseases classified elsewhere; N18.9 Chronic kidney disease, unspecified; E88.A Wasting disease (syndrome) due to underlying condition; E78.5 Hyperlipidemia, unspecified; Z74.1 Need for assistance with personal care; Z91.148 Patient's other noncompliance with medication regimen for other reason; E16.2 Hypoglycemia, unspecified; R63.0 Anorexia; Z68.22 Body mass index [BMI] 22.0-22.9, adult; R68.0 Hypothermia, not associated with low environmental temperature; Z66 Do not resuscitate; H54.7 Unspecified visual loss; R13.10 Dysphagia, unspecified; Z86.73 Personal history of transient ischemic attack (TIA), and cerebral infarction without residual deficits; D63.1 Anemia in chronic kidney disease
CPT/HCPCS: 36415; 51702; 71045; 80053; 80165; 80202; 81001; 82803; 82962; 83605; 83690; 83735; 84100; 84145; 84436; 84443; 84484; 85025; 85610; 85730; 87040; 87070; 87081; 87086; 87088; 87186; 87205; 93005; 99291; J1335; J1790; J1956; J3370; J7030; J7042; J7050; J7120

== ENCOUNTER 2024-09-18 07:09 | Outpatient (CLI) | payer MEDICARE, MEDICAID, SELFPAY ==
[2024-09-18 08:07] LABS: Valproic Acid, (Depakene) < 10.0 ug/ml (50-100)
== END 2024-09-18 23:59 | disposition home or self-care (01) ==
PROVIDERS: PCP Nurse Practitioner Family; Visit Provider Nurse Practitioner Family
DX: R56.9 Unspecified convulsions (principal)
CPT/HCPCS: 36415; 80164

== ENCOUNTER 2024-09-23 00:38 | Inpatient (IN) | payer MEDICAID, SELFPAY ==
[2024-09-23] VITALS (54 sets, daily range): BP systolic 74–178; BP diastolic 36–93; PULSE 40–82; RESP 10–18; TEMP 32–37.6; O2SAT 93–100; BMI 25.6; BMI 23.3
--- NOTE | 2024-09-23 00:48 | CT_ITS ---
PROCEDURE INFORMATION: Exam: CT Head Without Contrast Exam date and time: 09/23/2024 2:02 AM Age: 74 years old Clinical indication: Altered mental status/memory loss; Additional info: AMS, seizure TECHNIQUE: Imaging protocol: Computed tomography of the head without contrast. Radiation optimization: All CT scans at this facility use at least one of these dose optimization techniques: automated exposure control; mA and/or kV adjustment per patient size (includes targeted exams where dose is matched to clinical indication); or iterative reconstruction. 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 No hemorrhage. There is moderate periventricular white matter hypodensity consistent with chronic small vessel disease. No mass effect. Cerebral ventricles: Ventricular enlargement secondary to parenchymal atrophy. Paranasal sinuses: Visualized sinuses are unremarkable. No fluid levels. Mastoid air cells: Visualized mastoid air cells are well aerated. Orbital cavities: There is new abnormal appearance of the left globe compared to the prior exam. The findings may be secondary to interim surgery or retinal detachment. Bones: Unremarkable. No acute fracture. Soft tissues: Unremarkable. IMPRESSION: No acute intracranial abnormality.
--- NOTE | 2024-09-23 00:55 | HMH.EDGENADL ---
Discharge Plan Disposition Patient Disposition: Admitted Chief Complaint: Seizure Prescriptions Prescriptions: No Action clonidine HCl 0.1 mg tablet 0.1 mg PO TID Rx Instructions: HOLD IF BP 100/60 OR BELOW buspirone 5 mg tablet 5 mg PO TID mirtazapine [Remeron] 15 mg tablet 15 mg PO HS acetaminophen 500 mg tablet 500 mg PO Q6H PRN (Reason: Pain) ferrous sulfate [FeroSul] 325 mg (65 mg iron) tablet 325 mg PO DAILY lansoprazole 30 mg capsule,delayed release(DR/EC) 30 mg PO DAILY olanzapine [Zyprexa] 5 mg tablet 7.5 mg PO BID sulfamethoxazole-trimethoprim 800-160 mg tablet 1 tab PO BID Qty: 60 0RF mupirocin 2 % ointment 1 applic topical TID Qty: 15 0RF Rx Instructions: apply within nostrils TID x 5 days. amiodarone 200 mg tablet 200 mg PO DAILY apixaban 5 mg tablet 5 mg PO BID melatonin 5 mg capsule 5 mg PO HS polyethylene glycol 3350 17 gram/dose powder 17 g PO DAILY hydrocodone-acetaminophen 5-325 mg tablet 1 tab PO TID Qty: 90 0RF divalproex [Depakote Sprinkles] 125 mg capsule, delayed rel sprinkle 250 mg PO QID levothyroxine [Synthroid] 125 mcg Tablet 125 mcg PO DAILYDM 30 Days Qty: 30 0RF ertapenem 1 gram Recon Soln 1 g IM Q24H 5 Days Qty: 5 0RF Clinical Impressions Clinical Impression: Encephalopathy, Breakthrough seizure, Hypothermia, Acute hypotension Instructions Patient Instructions: DI for Seizure Disorder -- Adult, DI for Seizure (Not Epilepsy/Seizure Disorder), DI for Seizure Disorder -- Child Print Language Print Language: Thai Discharge ED Provider: Aly Wood General Adult HPI General Chief complaint: Seizure Stated complaint: Seizures Time Seen by Provider: 09/23/24 00:40 Mode of Arrival: EMS Source of Information: EMS Description of Symptoms (Recalled from ER Triage Doc. by RN): Pt presents per ems from [place] with c/o siezure like activity with known HX of seizures. EMS reports patient is normally very combative and fighting with eomployess. Pt has bed mat on the floor due to fall and seizure HX. EMS reports to being told that aid was rounding to check BG and found patient on the floor off of her mat and shaking. History of Present Illness HPI narrative: 74-year-old female with history of seizure disorder on Depakote atrial fibrillation on blood thinners, insulin-dependent diabetes, heart failure, chronic encephalopathy and dementia (combative and altered at baseline) on antipsychotics, presents for seizures. History from nursing facility is unclear. It sounds like they went to do rounds and perform a blood sugar check on the patient when she was found to be having a seizure. She may have had 1 or multiple seizures, it is unclear. On arrival with EMS, they report they did not notice any seizure-like activity en route. The nursing facility reports that the patient's normal baseline is that she is combative, trying to bite and claw and fight. Patient is currently postictal appearing and minimally responsive. Patient is DNR/DNI Related Data Home Medications ?Medication ?Instructions ?Recorded ?Confirmed amiodarone 200 mg tablet 200 mg PO DAILY 10/25/23 09/18/24 apixaban 5 mg tablet 5 mg PO BID 10/25/23 09/18/24 melatonin 5 mg capsule 5 mg PO HS 10/25/23 09/18/24 polyethylene glycol 3350 17 17 g PO DAILY 10/25/23 09/18/24 gram/dose oral powder acetaminophen 500 mg tablet 500 mg PO Q6H PRN Pain 03/12/24 09/18/24 clonidine HCl 0.1 mg tablet 0.1 mg PO TID 05/21/24 09/18/24 mirtazapine 15 mg tablet (Remeron) 15 mg PO HS 06/26/24 09/18/24 buspirone 5 mg tablet 5 mg PO TID 07/30/24 09/18/24 ferrous sulfate 325 mg (65 mg 325 mg PO DAILY 07/30/24 09/18/24 iron) tablet (FeroSul) lansoprazole 30 mg capsule,delayed 30 mg PO DAILY 07/30/24 09/18/24 release olanzapine 5 mg tablet (Zyprexa) 7.5 mg PO BID 09/04/24 09/18/24 divalproex 125 mg capsule,delayed 250 mg PO QID 09/10/24 09/18/24 release sprinkle (Depakote Sprinkles) Previous Rx's ?Medication ?Instructions ?Recorded hydrocodone 5 mg-acetaminophen 325 1 tab PO TID #90 tabs 07/31/24 mg tablet ertapenem 1 gram solution for 1 g IM Q24H 5 days #5 ea 09/16/24 injection levothyroxine 125 mcg tablet 125 mcg PO DAILYDM 30 days #30 tabs 09/16/24 (Synthroid) mupirocin 2 % topical ointment 1 applic topical TID #15 grams 09/18/24 sulfamethoxazole 800 1 tab PO BID #60 tabs 09/18/24 mg-trimethoprim 160 mg tablet Allergies Allergy/AdvReac Type Severity Reaction Status Date / Time No Known Allergies Allergy Verified 09/04/24 14:39 [facility] Disclaimer: The information contained in this section may have been updated after the patient was seen, as this information can be updated by other users. Medical History (Updated 09/23/24 @ 04:12 by Aly Wood MD) Hypothermia Hypothyroid Acute renal failure Sepsis Acute hypernatremia Pancreatitis Pneumonia Cerebrovascular disease, unspecified Unable to care for self Blindness Atrial fibrillation Seizure disorder Irritation of right eye Hypomagnesemia Hypokalemia Hypernatremia Inadequate oral intake Swallowing difficulty Dementia Intellectual disability Encephalopathy Right ovarian enlargement Transaminitis Cellulitis and abscess of face Facial swelling Thrombocytopenia History of Klebsiella pneumonia Chronic heart failure with preserved ejection fraction (HFpEF) Anemia Hypertension Severe sepsis Hypoglycemia Hypothermia Family History No significant family history Social History Smoking Status: Former smoker alcohol intake: former current occupational status: unemployed Travel in the last 8 weeks?: None Other Medical History Have you received the Flu Vaccine for this season: No Have you received the Pneumonia Vaccine: Yes (03/23/21) ROS Obtained: Yes All systems reviewed & no additional complaints except as documented Physical Exam General General appearance: obtunded Comment: Postictal in appearance, withdraws to painful stimuli, Head Head exam: atraumatic and normocephalic Eye Eye exam: Present normal appearance, PERRL and EOMI ENT ENT exam: Present normal oropharynx and normal external ear exam Neck Neck exam: Present normal inspection and full ROM Chest Chest inspection: Present normal inspection and symmetric chest wall rise; Absent tenderness Respiratory Respiratory exam: Present normal lung sounds bilaterally; Absent respiratory distress Cardiovascular Cardiovascular exam: Present normal rhythm and bradycardia Abdominal Exam Abdominal exam: Present soft; Absent distention, tenderness or guarding Extremities Exam Extremities exam: Present normal inspection; Absent edema or joint swelling Back Exam Back exam: Present normal inspection; Absent tenderness Neurological Exam Neurological exam: Present other (Withdraws to pain in all extremities, GCS 8) Psychiatric Psychiatric exam: Present other (Postictal) Skin Skin exam: Present warm, dry and normal color Lymphatic Lymphatic Findings: no adenopathy Medical Decision Making Medical Records Medical records reviewed: Yes I reviewed the patient's medical records. Screening: Per USPSTF and CDC recommendations, given the prevalence of disease in our region, it is our hospital?s policy to screen for HIV and viral Hepatitis for all patients aged 18 and over and those with ongoing risk factors. Baldo Inquiry Pt receiving controlled substance: No Baldo was queried for this patient: No Vital Signs: 09/23/24 00:37 09/23/24 01:01 09/23/24 01:30 Temperature 91.4 F L Temperature Source Rectal Pulse Rate 46 L 44 L Pulse Rate [Radial] 56 L Respiratory Rate 12 Blood Pressure 97/49 L 78/43 L Blood Pressure [Right Arm] 178/52 H Blood Pressure Mean 65 54 Blood Pressure Mean [Right Arm] 94 Blood Pressure Position [Right Arm] Left Lateral 02 Sat by Pulse Oximetry 93 L Oxygen Delivery Method Room Air 09/23/24 02:12 09/23/24 02:30 09/23/24 02:42 Temperature Temperature Source Pulse Rate 45 L 44 L 44 L Pulse Rate [Radial] Respiratory Rate Blood Pressure 89/53 L 79/42 L 84/49 L Blood Pressure [Right Arm] Blood Pressure Mean 63 54 54 Blood Pressure Mean [Right Arm] Blood Pressure Position [Right Arm] 02 Sat by Pulse Oximetry Oxygen Delivery Method 09/23/24 02:45 09/23/24 03:00 09/23/24 03:15 Temperature Temperature Source Pulse Rate 44 L 46 L 46 L Pulse Rate [Radial] Respiratory Rate Blood Pressure 81/47 L 88/45 L 87/47 L Blood Pressure [Right Arm] Blood Pressure Mean 53 51 56 Blood Pressure Mean [Right Arm] Blood Pressure Position [Right Arm] 02 Sat by Pulse Oximetry Oxygen Delivery Method 09/23/24 03:30 09/23/24 03:40 09/23/24 03:46 Temperature 89.6 F L Temperature Source Rectal Pulse Rate 48 L Pulse Rate [Radial] Respiratory Rate Blood Pressure 94/58 L 127/75 Blood Pressure [Right Arm] Blood Pressure Mean 66 90 Blood Pressure Mean [Right Arm] Blood Pressure Position [Right Arm] 02 Sat by Pulse Oximetry Oxygen Delivery Method Lab Data Lab results reviewed: Yes I reviewed the patient's lab results. Lab Results 09/23/24 00:52: Urine Color Yellow, Urine Appearance Clear, Urine pH 7.0, Ur Specific [place] 1.015, Urine Protein Negative, Urine Glucose (UA) Negative, Urine Ketones Negative, Urine Blood Negative, Urine Nitrate Negative, Urine Bilirubin Negative, Urine Urobilinogen 0.2, Ur Leukocyte Esterase Negative, Urine RBC None, Urine WBC Occasional, Ur Squamous Epith Cells None, Ur Renal Epithelial Cell Occasional, Urine Bacteria Trace, Hyaline Casts 3-5 09/23/24 01:08: WBC 3.8 L, RBC 4.19 L, Hgb 9.1 L, Hct 29.2 L, MCV 69.7 L, MCH 21.7 L, MCHC 31.2 L, RDW 19.5 H, Plt Count 125 L, MPV TNP, Neut % (Auto) 65.1, Lymph % (Auto) 27.2, [place] % (Auto) 5.3, Eos % (Auto) 1.3, Baso % (Auto) 0.3, Neut # (Auto) 2.5, Lymph # (Auto) 1.0, [place] # (Auto) 0.2, Eos # (Auto) 0.1, Baso # (Auto) 0.0, Sodium 141, Potassium 4.9, Chloride 109 H, Carbon Dioxide 30, Anion Gap 6.9, BUN 24 H, Creatinine 1.10 H, Estimated Creat Clear 46, Estimated GFR 49 L, Est GFR ( Amer) 59, Glucose 80, Calcium 8.4, Magnesium 2.2, Total Bilirubin 0.2, AST 36, ALT 42, Alkaline Phosphatase 122, Total Protein 6.4, Albumin 3.2 L, Globulin 3.2, Albumin/Globulin Ratio 1.0 L, TSH 25.90 H, Thyroxine (T4) 11.5 H 09/23/24 01:10: VBG pH 7.33, VBG pCO2 55.3 H, VBG pO2 37.6, VBG HCO3 28.4, VBG Total CO2 30.1 H, VBG O2 Saturation 67.8, VBG Base Excess 2.5 H, VBG Lactic Acid 2.6 H 09/23/24 01:08 09/23/24 01:08 Orders (Tests/Meds): ED MEDICATIONS Generic Name Dose Route Start Last Admin Trade Name Freq PRN Reason Stop Dose Admin Norepinephrine Bitartrate 8 mg 258 mls @ 15.48 mls/hr 09/23/24 03:05 09/23/24 03:16 / Sodium Chloride IV 10/23/24 03:04 8 mcg/min .[id number] STAR 15.48 mls/hr Administration Protocol 8 MCG/MIN Vancomycin/PEG/NADA/Lysine/Water 1.25 gm in 250 mls @ 125 mls/hr 09/23/24 03:30 Vancomycin 1.25gm/250ml (Peg) Premix IV 09/23/24 05:29 ONCE ONE Midazolam HCl 5 mg 09/23/24 03:59 Midazolam 5mg/Ml 1ml Vial IM 10/23/24 03:58 Q6HP PRN Seizures Miscellaneous 1 each 09/23/24 03:15 Vancomycin Consult Request NOTAPPLIC 10/23/24 03:14 CONSULT PHARMACY [facility] Miscellaneous 1 each 09/23/24 04:00 Vancomycin Consult Request NOTAPPLIC 10/23/24 03:59 CONSULT PHARMACY [facility]AR Discontinued Medications Generic Name Dose Route Start Last Admin Trade Name Freq PRN Reason Stop Dose Admin Lactated Ringer's 1,000 mls @ 999 mls/hr 09/23/24 01:00 09/23/24 01:13 Lactated Ringer's 1000 Ml Bag IV 09/23/24 02:00 999 mls/hr .Q1H1M STAR Administration Valproate Sodium 500 mg/ 105 mls @ 105 mls/hr 09/23/24 01:32 09/23/24 01:52 Sodium Chloride IV 09/23/24 01:33 105 mls/hr ONCE ONE Administration Lactated Ringer's 1,000 mls @ 999 mls/hr 09/23/24 02:45 09/23/24 02:38 Lactated Ringer's 1000 Ml Bag IV 09/23/24 03:45 999 mls/hr .Q1H1M STAR Administration Piperacillin Sod/Tazobactam 100 mls @ 200 mls/hr 09/23/24 03:04 09/23/24 03:15 Sod 4.5 gm/ Sodium Chloride IV 09/23/24 03:33 200 mls/hr ONCE ONE Administration Midazolam HCl 5 mg 09/23/24 00:47 09/23/24 01:20 Midazolam 5mg/Ml 1ml Vial IV 09/23/24 00:48 5 mg ONCE ONE Administration ORDERS Category Date Time Status CT head/brain wo con Stat Cat Scan 09/23/24 00:48 Completed CBC w/Auto Diff [Complete Blood Count Auto Diff] Stat Lab 09/23/24 01:08 Completed CMP [Comprehensive Metabolic Panel] Stat Lab 09/23/24 01:08 Completed Complete Blood Count Auto Diff AMLAB Lab 09/23/24 06:00 Ordered Complete Blood Count Auto Diff AMLAB Lab 09/24/24 06:00 Ordered Comprehensive Metabolic Panel AMLAB Lab 09/23/24 06:00 Ordered Comprehensive Metabolic Panel AMLAB Lab 09/24/24 06:00 Ordered Free Valproic Acid (Depakote) Routine Lab 09/23/24 01:08 Received Magnesium AMLAB Lab 09/23/24 06:00 Ordered Magnesium AMLAB Lab 09/24/24 06:00 Ordered Magnesium Stat Lab 09/23/24 01:08 Completed Phosphorous AMLAB Lab 09/23/24 06:00 Ordered T4 (Thyroxine) Stat Lab 09/23/24 01:08 Completed TSH [Thyroid Stimulating Hormone] Stat Lab 09/23/24 01:08 Completed UA [Urinalysis and Microscopic] Stat Lab 09/23/24 00:52 Completed Blood Culture Stat Micro 09/23/24 01:20 Received VBG [Venous Blood Gas] Stat RT 09/23/24 01:10 Completed EKG Request [ECG Request] Stat Y 09/23/24 02:15 Ordered Medical Decision Narrative: 74-year-old female with history of seizure disorder on Depakote, atrial fibrillation on blood thinners, insulin-dependent diabetes, heart failure, chronic encephalopathy and dementia (combative and altered at baseline) on antipsychotics, presents for seizures. History is unclear, it sounds like patient was found to be seizing when they went to do a blood sugar check during night rounds. History was obtained via interactive discussion with EMS, chart review, nursing facility. On arrival, patient is hypothermic with temp 91.4, bradycardic with heart rate in the 40s, normotensive. Full physical exam performed and significant for altered mental status with GCS of 8, no obvious signs of trauma. Differential includes but is not limited to breakthrough seizure, intracranial lesion, DKA electrolyte derangement UTI, myxedema coma. Patient was given 1 L warm IV fluid bolus, 500 mg of Depakote load as well as 5 mg of IM Versed to help in obtaining labs, urine etc. because patient was being combative. Workup initiated including CBC CMP TSH T4 mag UA CT head blood cultures. Patient was placed on a Radha hugger to help warm. On re-evaluation, patient remains hypothermic bradycardic and hypotensive. An additional 1 L of IV warmed fluids were given. Laboratory workup independently interpreted by me and significant for stable pancytopenia, VBG with lactate of 2.6, thyroid studies improved from prior, patient likely had myxedema coma recently. Urinalysis not consistent with infection.. Imaging independently interpreted by me and significant for CT head without intracranial bleed. See radiology read for full review of final results. EKG independently interpreted by me and significant for sinus bradycardia with first-degree AV block and prolonged QT. Ventricular rate of 43. On reassessment patient continues to be hypothermic, hypotensive tensive and bradycardic. Has not had any recurrent seizures but remains altered. Unclear what the underlying etiology of patient's presentation is. Given persistent vital sign abnormalities, we will initiate broad-spectrum IV antibiotic therapy and Levophed. Given patient history, exam and workup, patient's presentation most likely represents breakthrough seizures, hypotension and hypothermia with persistent altered mental status. Interactive discussion was had with the hospitalist on-call for admission.. Procedures Risk/Benefits of Procedure(s) Were Explained: Yes Critical Care Critical Care Time Critical Care Time: Yes Attestation: On 09/23/24, the high probability of a clinically significant, sudden or life threatening deterioration of the following system(s) required my full and direct attention, intervention and personal management. The time I documented below is in addition to time spent performing reported procedures but includes the following listed in this critical care notation. Total Time Total Critical Care Time: 40
[2024-09-23 01:06] LABS: Appearance,Urine CLEAR (Clear); Bilirubin,Urine Negative (Negative); Blood, Urine Negative (Negative); Color,Urine YELLOW (Yellow); Glucose,Urine (UA) Negative (Negative); Ketones,Urine Negative (Negative); Leukocyte Esterase,Urine Negative (Negative); Microscopic, Urine URINE MICROSCOPIC (MICROSCOPIC); Nitrate,Urine Negative (Negative); Protein,Urine Negative (Negative); Specific Gravity, Urine 1.015 (1.005-1.030); Urobilinogen,Urine 0.2 EU/dl (0.2)
[2024-09-23] MEDS: LACTATED RINGERS 1000ML 1,000 ML 999 ML IV ×2 (01:13→02:38)
[2024-09-23 01:16] LABS: VBG Base Excess 2.5 mmol/L (-2.4-2.3); VBG HCO3 28.4 mmol/L (23-30); VBG Oxygen Saturation 67.8 % (50-70); VBG PH 7.33 mmol/L (7.31-7.41); VBG PO2 37.6 mmol/L (28-40); VBG Total CO2 30.1 mmol/L (23-27)
[2024-09-23 01:18] LABS: Lactate Venous 2.6 mmol/L (0.4-2.0); VBG PCO2 55.3 mmol/L (35-51)
[2024-09-23] MEDS: MIDAZOLAM 5MG/ML 1ML VIAL 5 MG IV (01:20)
[2024-09-23 01:23] LABS: Albumin Level 3.2 g/dl (3.5-5.0); Chloride 109 mmol/L (98-107); Potassium 4.9 mmoL/L (3.5-5.1); Sodium 141 mmol/L (136-145)
[2024-09-23 01:26] LABS: Alanine Aminotransferase 42 U/L (12-78); Alkaline Phosphatase 122 U/L (38-126); Anion Gap 6.9 mEq/L (5-15); Aspartate Amino Transferase 36 U/L (14-36); Basophils % 0.3 % (0.1-2.0); Bilirubin,Total 0.2 mg/dl (0.2-1.3); Blood Urea Nitrogen 24 mg/dl (7-17); Calcium 8.4 mg/dl (8.4-10.2); Carbon Dioxide 30 mmol/L (22.0-30.0); Creatinine Clearance Estimated 46 mL/min (50-200); Eosinophils # 0.1 Kmm3 (0.0-0.4); Eosinophils % 1.3 % (0.1-12.0); Estimated Glomerular Filt Rate 49 ml/min (>60); GFR (African American) 59 ML/MIN (>60); Globulin 3.2 g/dL (1.3-3.2); Glucose 80 mg/dl (74-100); Hematocrit 29.2 % (37.0-47.0); Hemoglobin 9.1 g/dL (12.2-16.2); Immature Granulocytes # 0.03 10^3uL; Immature Granulocytes % 0.8 %; Lymphocytes % 27.2 % (10-50); Mean Corpuscular HGB Conc 31.2 g/dL (31.8-35.4); Mean Corpuscular Hemoglobin 21.7 pg (27.0-31.2); Mean Corpuscular Volume 69.7 fl (81-99); Monocytes # 0.2 K/mm3 (0.1-1.0); Monocytes % 5.3 % (1.7-9.3); Neutrophils # 2.5 K/mm3 (1.8-7.8); Neutrophils % 65.1 % (37.0-80.0); Nucleated Red Blood Cells # 0.02 10^3/uL; Nucleated Red Blood Cells % 0.5 %; Platelet Count 125 K/mm3 (142-424); Red Blood Count 4.19 M/mm3 (4.20-5.40); Red Cell Distribution Width 19.5 % (11.5-17.5); Red Cell Distribution Width-SD 44.8 fL; Total Protein,Serum 6.4 g/dl (6.3-8.2); White Blood Count 3.8 K/mm3 (4.8-10.8)
[2024-09-23 01:27] LABS: Magnesium 2.2 mg/dl (1.6-2.3)
[2024-09-23 01:27] LABS: WBC,Urine Occasional #/hpf (0-3)
[2024-09-23 01:28] LABS: Bacteria,Urine Trace /lpf; Renal Epithelial Cells,Urine Occasional #/lpf (0)
--- NOTE | 2024-09-23 01:28 | PC.NURSE ---
Administered 2L NC per MD Wood
[2024-09-23 01:43] LABS: T4 (Thyroxine) 11.5 ug/dl (5.53-11.0)
[2024-09-23] MEDS: SODIUM CHLORIDE 0.9% IV (01:52)
[2024-09-23] MEDS: VALPROIC ACID IV (01:52)
--- NOTE | 2024-09-23 02:15 | ECG_ITS ---
APPROVED REPORT Exam: Resting ECG HR:43 bpm ECG Measurements Heart Rate 43 AXES ID 252 P 66 QRSd 106 QRS 29 QT 551 T 3 QTc 496 Conclusion SINUS BRADYCARDIA WITH FIRST DEGREE AV BLOCK MODERATE T-WAVE ABNORMALITY, CONSIDER LATERAL ISCHEMIA [-0.1+ mV T-WAVE IN I/aVL/V5/V6] MODERATE T-WAVE ABNORMALITY, CONSIDER INFERIOR ISCHEMIA [-0.1+ mV T-WAVE IN II/aVF] PROLONGED QT INTERVAL CRITICAL TEST RESULT UNCONFIRMED REPORT Electronically signed by : FAWAD SHRESTHA, 09/25/2024 06:53:50
[2024-09-23] MEDS: PIPERACILLIN/TAZO 4.5 GM in 0.9 % SODIUM CHLORIDE 100 ML IV ×4 (03:15→20:12)
[2024-09-23] MEDS: NOREPINEPHRINE BITARTRATE 8 MG in 0.9 % SODIUM CHLORIDE 250 ML 15.48 MG IV (03:16)
--- NOTE | 2024-09-23 04:03 | P.HP_ITS ---
History of Present Illness *Admission Date: 09/23/24 *Reason for visit:: seizure activity, hypothermia *History of present illness: Ms. Valdivia is a 74-year-old female with history of hypertension, hyperlipidemia, CVA, dementia, A-fib, CKD, seizure disorder, hypothyroid. She was recently a dmitted 11 days ago for sepsis from UTI along with concern for myxedema coma given severe hypothyroid with TSH greater than 110, hypothermia, acute encephalopathy. Showed some improvement and was discharged back to nursing facility on oral levothyroxine and ertapenem IM. She presents tonight very similarly to 10 days ago with hypothermia and altered mental status after what appeared to be seizure-like activity. Patient was found off her bed mat on the floor on evening rounds where her blood glucose was going to be evaluated. She was shaking and having what appeared to be a seizure. EMS was called and she was sent to the ER for further management. On arrival, patient is hypotensive, hypothermic, encephalopathic. Appeared postictal in the ER. Received a dose of Versed. Labs obtained showing leukopenia. In light of her lab abnormalities, hemodynamic instability, patient being treated for septic shock with initiation of Zosyn and Levophed. Placed on Radha hugger and administered 2 L of warmed IV fluids. Medicine consulted for admission and further management. Admitted to the ICU due to her hemodynamic instability. Cultures obtained in the ER. TSH improved at this time from 117 two weeks ago, to 25 today. T4 elevated 11.5. Evaluation after arriving to the floor, patient obtunded and unable to provide any history. No meaningful response to verbal or physical stimuli [facility] Disclaimer: The information contained in this section may have been updated after the melissa ent was seen, as this information can be updated by other users. Medical History (Updated 09/23/24 @ 06:18 by Javier Barrientos MD) Hypothermia Hypothyroid Acute renal failure Sepsis Acute hypernatremia Pancreatitis Pneumonia Cerebrovascular disease, unspecified Unable to care for self Blindness Atrial fibrillation Seizure disorder Irritation of right eye Hypomagnesemia Hypokalemia Hypernatremia Inadequate oral intake Swallowing difficulty Dementia Intellectual disability Encephalopathy Right ovarian enlargement Transaminitis Cellulitis and abscess of face Facial swelling Thrombocytopenia History of Klebsiella pneumonia Chronic heart failure with preserved ejection fraction (HFpEF) Anemia Hypertension Severe sepsis Hypoglycemia Hypothermia Family History No significant family history Social History Smoking Status: Former smoker alcohol intake: former current occupational status: unemployed Travel in the last 8 weeks?: None Other Medical History Have you received the Flu Vaccine for this season: No Have you received the Pneumonia Vaccine: Yes (03/23/21) Review of Systems Review of Systems Review of systems:: unable to obtain (Patient nonverbal and obtunded) Meds Home Medications and Allergies Home Medications ?Medication ?Instructions ?Recorded ?Confirmed ?Type amiodarone 200 mg tablet 200 mg PO DAILY 10/25/23 09/18/24 History apixaban 5 mg tablet 5 mg PO BID 10/25/23 09/18/24 History melatonin 5 mg capsule 5 mg PO HS 10/25/23 09/18/24 History polyethylene glycol 3350 17 17 g PO DAILY 10/25/23 09/18/24 History gram/dose oral powder acetaminophen 500 mg tablet 500 mg PO Q6H PRN Pain 03/12/24 09/18/24 History clonidine HCl 0.1 mg tablet 0.1 mg PO TID 05/21/24 09/18/24 History mirtazapine 15 mg tablet (Remeron) 15 mg PO HS 06/26/24 09/18/24 History buspirone 5 mg tablet 5 mg PO TID 07/30/24 09/18/24 History ferrous sulfate 325 mg (65 mg 325 mg PO DAILY 07/30/24 09/18/24 History iron) tablet (FeroSul) lansoprazole 30 mg capsule,delayed 30 mg PO DAILY 07/30/24 09/18/24 History release hydrocodone 5 mg-acetaminophen 325 1 tab PO TID #90 tabs 07/31/24 09/18/24 Rx mg tablet olanzapine 5 mg tablet (Zyprexa) 7.5 mg PO BID 09/04/24 09/18/24 History divalproex 125 mg capsule,delayed 250 mg PO QID 09/10/24 09/18/24 History release sprinkle (Depakote Sprinkles) ertapenem 1 gram solution for 1 g IM Q24H 5 days #5 ea 09/16/24 09/18/24 Rx injection levothyroxine 125 mcg tablet 125 mcg PO DAILYDM 30 days #30 tabs 05/19/25 05/21/25 Rx (Synthroid) mupirocin 2 % topical ointment 1 applic topical TID #15 grams 09/18/24 09/18/24 Rx sulfamethoxazole 800 1 tab PO BID #60 tabs 09/18/24 09/18/24 Rx mg-trimethoprim 160 mg tablet New Prescriptions to Start Prescriptions: Allergies Allergy/AdvReac Type Severity Reaction Status Date / Time No Known Allergies Allergy Verified 09/04/24 14:39 Exam Data for Last 24 hours Vital signs and Labs for Last 24 Hours: Temp Pulse Resp BP Pulse Ox O2 Del Method 89.6 F L 48 L 12 127/75 93 L Room Air 09/23/24 03:40 09/23/24 03:30 09/23/24 00:37 09/23/24 03:46 09/23/24 00:37 09/23/24 00:37 Laboratory Results - last 24 hr 09/23/24 00:52: Urine Color Yellow, Urine Appearance Clear, Urine pH 7.0, Ur Specific [place] 1.015, Urine Protein Negative, Urine Glucose (UA) Negative, Urine Ketones Negative, Urine Blood Negative, Urine Nitrate Negative, Urine Bilirubin Negative, Urine Urobilinogen 0.2, Ur Leukocyte Esterase Negative, Urine RBC None, Urine WBC Occasional, Ur Squamous Epith Cells None, Ur Renal E pithelial Cell Occasional, Urine Bacteria Trace, Hyaline Casts 3-5 09/23/24 01:08: WBC 3.8 L, RBC 4.19 L, Hgb 9.1 L, Hct 29.2 L, MCV 69.7 L, MCH 21.7 L, MCHC 31.2 L, RDW 19.5 H, Plt Count 125 L, MPV TNP, Neut % (Auto) 65.1, Lymph % (Auto) 27.2, [place] % (Auto) 5.3, Eos % (Auto) 1.3, Baso % (Auto) 0.3, Neut # (Auto) 2.5, Lymph # (Auto) 1.0, [place] # (Auto) 0.2, Eos # (Auto) 0.1, Baso # (Auto) 0.0, Sodium 141, Potassium 4.9, Chloride 109 H, Carbon Dioxide 30, Anion Gap 6.9, BUN 24 H, Creatinine 1.10 H, Estimated Creat Clear 46, Estimated GFR 49 L, Est GFR ( Amer) 59, Glucose 80, Calcium 8.4, Magnesium 2.2, Total Bilirubin 0.2, AST 36, ALT 42, Alkaline Phosphatase 122, Total Protein 6.4, Albumin 3.2 L, Globulin 3.2, Albumin/Globulin Ratio 1.0 L, TSH 25.90 H, Thyroxine (T4) 11.5 H 09/23/24 01:10: VBG pH 7.33, VBG pCO2 55.3 H, VBG pO2 37.6, VBG HCO3 28.4, VBG Total CO2 30.1 H, VBG O2 Saturation 67.8, VBG Base Excess 2.5 H, VBG Lactic Acid 2.6 H I & O for Last 24 hours: Intake & Output 09/20/24 09/21/24 09/22/24 09/23/24 23:59 23:59 23:59 23:59 Weight 63.503 kg Constitutional Constitutional: moderate distress, cachectic, chronically ill appearing and obtunded *Routine HEENT Exam Head: Present normocephalic Eye: Absent periorbital swelling ENT: Present mucous membranes moist *Routine Neck Exam Neck: Present supple; Absent lymphadenopathy *Routine Respiratory Exam Respiratory: Present CTA bilaterally and normal respiratory effort *Routine Cardiovascular Exam Cardiovascular: Present RRR, Normal S1 and Normal S2 *Routine Abdominal Exam Abdominal: Present soft and normoactive bowel sounds; Absent tenderness *Routine Rectal Exam Rectal:: deferred *Routine Genitalia Exam Genitalia:: deferred *Routine Extremities Exam Extremities: Present pulses intact; Absent cyanosis, clubbing, edema or full ROM *Routine Skin Exam Skin: Present intact and warm; Absent rash *Routine Neurological Exam Neurological: Present altered mental status; Absent moving all extremities Assessment and Plan *Assessment and plan (1) Shock: Status: Acute Category: Medical Code(s): R57.9 - Shock, unspecified (2) Seizure disorder: Status: Acute Category: Medical Code(s): G40.909 - Epilepsy, unspecified, not intractable, without status epilepticus (3) Breakthrough seizure: Status: Acute Category: Medical Code(s): G40.919 - Epilepsy, unspecified, intractable, without status epilepticus (4) Metabolic encephalopathy: Status: Acute Category: Medical Code(s): G93.41 - Metabolic encephalopathy (5) Hypothermia: Status: Acute Category: Medical Code(s): T68.XXXA - Hypothermia, initial encounter (6) Hypothermia: Status: Acute Qualifiers: Encounter type: initial encounter Qualified Code(s): T68.XXXA - Hypothermia, initial encounter Category: Medical Code(s): T68.XXXA - Hypothermia, initial encounter (7) Hypothyroidism: Status: Acute Category: Medical Code(s): E03.9 - Hypothyroidism, unspecified (8) Atrial fibrillation: Problem Comment: history of Status: Acute Category: Medical Code(s): I48.91 - Unspecified atrial fibrillation (9) Dementia: Status: Acute Category: Medical Code(s): F03.90 - Unspecified dementia, unspecified severity, without behavioral disturbance, psychotic disturbance, mood disturbance, and anxiety (10) Severe protein-calorie malnutrition: Status: Acute Category: Medical Code(s): E43 - Unspecified severe protein-calorie malnutrition (11) Functional quadriplegia: Status: Acute Category: Medical Code(s): R53.2 - Functional quadriplegia Plan [id number] long-term care patient with seizure disorder, hypothyroid, dementia from long-term. Presents with seizure-like activity, shock and hypothermia. Etiology concerning for sepsis versus hypovolemic versus myxedema. Unable to maintain body temperature at this time. Received warmed fluids in the ER, placed on Radha hugger. Discussed case with ER physician, request admission for further management due to severe hemodynamic instability eptic shock versus myxedema coma. Protecting airway but nonresponsive on exam. Body temperature still in the low 90s on evaluation. Admitted to ICU. Prognosis poor. Problems addressed as follows: #Sepsis with septic shock - Hypotension, lactic acidosis, tachycardia, improving - Urine negative for ketones and nitrates and leuk esterase. Has completed adequate treatment for UTI diagnosed last admission. -Blood cultures obtained and pending -In no respiratory distress. On room air. -Will consider stress dose steroids pending response to norepinephrine and antibiotics - White count low at 3.8, hemoglobin 9.1, platelets 111 low, MCV 68 - BUN 24, creatinine 1.1, improved from last admission. Suspect this is baseline. Sodium 141, potassium 4.9, chloride 109. - Repeat CBC, CMP, magnesium, and phosphorus ordered for the morning Hypoglycemia: Struggled with hypoglycemia last visit necessitating dextrose and oral glucose supplementation due to poor p.o. intake. Glucose 80 on admission. Monitor fingersticks every 4 hours in her sepsis state until improved mentation and tolerating oral intake or further goals of care discussion. #Hypothyroidism #Hypothermia - Possible element of myexedema contributing to altered mental status Versus sepsis above. - TSH of 117 on 09/06/2024, repeat on admission of 25. -Unable to tolerate oral at this time, will initiate levothyroxine 100 mcg daily IV - monitor blood pressure and hypothermia - Holding clonidine 0.1 mg TID per home regimen due to hypotension #Dementia #Seizure disorder - Versed 5 mg IV administered once in the ER. Continue 5 mg IM every 6 hours as needed for seizure disorder/breakthrough seizures - Normally on Depakote, due to obtundation, received 500 mg IV once a valproic acid in the ER - Resume Depakote 250 mg 4 times a day if able to take p.o. later today, if not, will resume IV Depakote - Holding Remeron 15 mg nightly and olanzapine 7.5 mg twice daily due to inability to rate p.o. intake at this time Patient has severe acute illness on top of significant chronic debility with worsening decompensation necessitating significant support for all ADLs. Taking into account her presentation with septic shock versus myxedema coma, inability to maintain body temperature and blood pressure, repeat presentation in less than 2 weeks of similar condition on top of her underlying chronic conditions, dementia, total care needs at nursing facility, would recommend patient be considered for end-of-life hospice care. This is due to her septic shock, dementia, seizure disorder, current encephalopathy and lack of any meaningful response to physical exam at this time along with lack of any nutritional intake. - If transition to hospice care, would recommend holding vasopressors, antibiotics, all oral medications. Would treat pain and anxiety with Ativan and morphine. Would not administer any nutrition via tube. Would allow for comfort feeds if patient was alert and expressing interest in eating. Would not check labs or monitor glucose. Would discontinue supportive devices to augment body temperature. - Case management consulted to assist with hospice recommendation to state guardian DNR/DNI Lovenox 40 mg subcu daily Comfort feeds however not alert/interactive enough to eat at this time
--- NOTE | 2024-09-23 04:39 | PC.NURSE ---
Patient arrived to floor via stretcher from ED at 04:34.
[2024-09-23] MEDS: VANCOMYCIN CONSULT REQUEST 1 EACH NOTAPPLIC (04:59)
[2024-09-23] MEDS: VANCOMYCIN/WATER FOR INJ (PEG) 1.25 GM/250 ML PIGGYBACK IV (05:05)
[2024-09-23 05:19] LABS: Reflex Lactic Add Lactic Reflex
[2024-09-23 05:24] LABS: POC Glucose,Bedside 82 (70-110)
[2024-09-23 05:59] LABS: Basophils % 0.3 % (0.1-2.0); Eosinophils % 1.1 % (0.1-12.0); Hematocrit 23.3 % (37.0-47.0); Immature Granulocytes # 0.03 10^3uL; Immature Granulocytes % 0.8 %; Lymphocytes % 26.3 % (10-50); Mean Corpuscular HGB Conc 31.3 g/dL (31.8-35.4); Mean Corpuscular Hemoglobin 21.5 pg (27.0-31.2); Mean Corpuscular Volume 68.7 fl (81-99); Monocytes # 0.1 K/mm3 (0.1-1.0); Neutrophils # 2.5 K/mm3 (1.8-7.8); Neutrophils % 68.5 % (37.0-80.0); Nucleated Red Blood Cells # 0.02 10^3/uL; Nucleated Red Blood Cells % 0.5 %; Platelet Count 111 K/mm3 (142-424); Red Blood Count 3.39 M/mm3 (4.20-5.40); Red Cell Distribution Width 18.6 % (11.5-17.5); Red Cell Distribution Width-SD 44.2 fL; White Blood Count 3.7 K/mm3 (4.8-10.8)
[2024-09-23 06:10] LABS: Lactic Acid Follow Up (RFLX 1) 1.4 mmol/L (0.7-2.1)
[2024-09-23 06:14] LABS: Alanine Aminotransferase 30 U/L (12-78); Albumin Level 2.6 g/dl (3.5-5.0); Alkaline Phosphatase 111 U/L (38-126); Anion Gap 6.1 mEq/L (5-15); Aspartate Amino Transferase 27 U/L (14-36); Bilirubin,Total 0.2 mg/dl (0.2-1.3); Blood Urea Nitrogen 22 mg/dl (7-17); Calcium 8.2 mg/dl (8.4-10.2); Carbon Dioxide 31 mmol/L (22.0-30.0); Chloride 109 mmol/L (98-107); Creatinine Clearance Estimated 41 mL/min (50-200); Estimated Glomerular Filt Rate 49 ml/min (>60); GFR (African American) 59 ML/MIN (>60); Globulin 2.6 g/dL (1.3-3.2); Glucose 69 mg/dl (74-100); Potassium 5.1 mmoL/L (3.5-5.1); Sodium 141 mmol/L (136-145); Total Protein,Serum 5.2 g/dl (6.3-8.2)
[2024-09-23 06:29] LABS: Hemoglobin 7.3 g/dL (12.2-16.2)
--- NOTE | 2024-09-23 06:31 | PC.NURSE ---
Contacted [facility] about med rec sent with record not matching some of medications on external, Swathi stated they did send the wrong med list with patient, old list, stated they would fax new list over, contacted at [phone], no fax at this time
[2024-09-23] MEDS: LEVOTHYROXINE SODIUM 100 MCG VIAL IV (06:38)
--- NOTE | 2024-09-23 07:39 | EXP.PHA.CONS ---
Pharmacy Consult Date: 09/23/24 Time: 07:41 Referring provider: DR FARRELL Reason for Consult:: VANCOMYCIN DOSING CONSULT Allergies Allergy/AdvReac Type Severity Reaction Status Date / Time No Known Allergies Allergy Verified 09/04/24 14:39 Home Medications ?Medication ?Instructions ?Recorded ?Confirmed ?Type amiodarone 200 mg tablet 200 mg PO DAILY 10/25/23 09/23/24 History apixaban 5 mg tablet 5 mg PO BID 10/25/23 09/23/24 History melatonin 5 mg capsule 5 mg PO HS 10/25/23 09/23/24 History polyethylene glycol 3350 17 17 g PO DAILY 10/25/23 09/23/24 History gram/dose oral powder acetaminophen 500 mg tablet 500 mg PO Q6H PRN Pain 03/12/24 09/23/24 History clonidine HCl 0.1 mg tablet 0.1 mg PO TID 05/21/24 09/23/24 History mirtazapine 15 mg tablet (Remeron) 15 mg PO HS 06/26/24 09/23/24 History buspirone 5 mg tablet 5 mg PO TID 07/30/24 09/23/24 History ferrous sulfate 325 mg (65 mg 325 mg PO DAILY 07/30/24 09/23/24 History iron) tablet (FeroSul) lansoprazole 30 mg capsule,delayed 30 mg PO DAILY 07/30/24 09/23/24 History release hydrocodone 5 mg-acetaminophen 325 1 tab PO TID #90 tabs 07/31/24 09/23/24 Rx mg tablet olanzapine 5 mg tablet (Zyprexa) 7.5 mg PO BID 09/04/24 09/23/24 History divalproex 125 mg capsule,delayed 250 mg PO QID 09/10/24 09/23/24 History release sprinkle (Depakote Sprinkles) ertapenem 1 gram solution for 1 g IM Q24H 5 days #5 ea 09/16/24 09/23/24 Rx injection levothyroxine 125 mcg tablet 125 mcg PO DAILYDM 30 days #30 tabs 09/16/24 09/23/24 Rx (Synthroid) mupirocin 2 % topical ointment 1 applic topical TID #15 grams 09/18/24 09/23/24 Rx sulfamethoxazole 800 1 tab PO BID #60 tabs 09/18/24 09/23/24 Rx mg-trimethoprim 160 mg tablet New Prescriptions to Start Prescriptions: Height: 1.57 m Weight: 57.697 kg Laboratory Results:: Laboratory Results - last 24 hr 09/23/24 00:52: Urine Color Yellow, Urine Appearance Clear, Urine pH 7.0, Ur Specific [place] 1.015, Urine Protein Negative, Urine Glucose (UA) Negative, Urine Ketones Negative, Urine Blood Negative, Urine Nitrate Negative, Urine Bilirubin Negative, Urine Urobilinogen 0.2, Ur Leukocyte Esterase Negative, Urine RBC None, Urine WBC Occasional, Ur Squamous Epith Cells None, Ur Renal Epithelial Cell Occasional, Urine Bacteria Trace, Hyaline Casts 3-5 09/23/24 01:08: WBC 3.8 L, RBC 4.19 L, Hgb 9.1 L, Hct 29.2 L, MCV 69.7 L, MCH 21.7 L, MCHC 31.2 L, RDW 19.5 H, Plt Count 125 L, MPV TNP, Neut % (Auto) 65.1, Lymph % (Auto) 27.2, [place] % (Auto) 5.3, Eos % (Auto) 1.3, Baso % (Auto) 0.3, Neut # (Auto) 2.5, Lymph # (Auto) 1.0, [place] # (Auto) 0.2, Eos # (Auto) 0.1, Baso # (Auto) 0.0, Sodium 141, Potassium 4.9, Chloride 109 H, Carbon Dioxide 30, Anion Gap 6.9, BUN 24 H, Creatinine 1.10 H, Estimated Creat Clear 46, Estimated GFR 49 L, Est GFR ( Amer) 59, Glucose 80, Calcium 8.4, Magnesium 2.2, Total Bilirubin 0.2, AST 36, ALT 42, Alkaline Phosphatase 122, Total Protein 6.4, Albumin 3.2 L, Globulin 3.2, Albumin/Globulin Ratio 1.0 L, TSH 25.90 H, Thyroxine (T4) 11.5 H 09/23/24 01:10: VBG pH 7.33, VBG pCO2 55.3 H, VBG pO2 37.6, VBG HCO3 28.4, VBG Total CO2 30.1 H, VBG O2 Saturation 67.8, VBG Base Excess 2.5 H, VBG Lactic Acid 2.6 H 09/23/24 05:04: POC Glucose 82 09/23/24 05:26: WBC 3.7 L, RBC 3.39 L, Hgb 7.3 L D, Hct 23.3 L, MCV 68.7 L, MCH 21.5 L, MCHC 31.3 L, RDW 18.6 H, Plt Count 111 L, MPV TNP, Neut % (Auto) 68.5, Lymph % (Auto) 26.3, [place] % (Auto) 3.0, Eos % (Auto) 1.1, Baso % (Auto) 0.3, Neut # (Auto) 2.5, Lymph # (Auto) 1.0, [place] # (Auto) 0.1, Eos # (Auto) 0.0, Baso # (Auto) 0.0, Sodium 141, Potassium 5.1, Chloride 109 H, Carbon Dioxide 31 H, Anion Gap 6.1, BUN 22 H, Creatinine 1.10 H, Estimated Creat Clear 41, Estimated GFR 49 L, Est GFR ( Amer) 59, Glucose 69 L, Lactate 1.4, Calcium 8.2 L, Phosphorus 3.0, Magnesium 2.0, Total Bilirubin 0.2, AST 27, ALT 30 D, Alkaline Phosphatase 111, Total Protein 5.2 L, Albumin 2.6 L D, Globulin 2.6, Albumin/Globulin Ratio 1.0 L Medical History: Medical History (Updated 09/23/24 @ 06:18 by Javier Farrell MD) Hypothermia Hypothyroid Acute renal failure Sepsis Acute hypernatremia Pancreatitis Pneumonia Cerebrovascular disease, unspecified Unable to care for self Blindness Atrial fibrillation Seizure disorder Irritation of right eye Hypomagnesemia Hypokalemia Hypernatremia Inadequate oral intake Swallowing difficulty Dementia Intellectual disability Encephalopathy Right ovarian enlargement Transaminitis Cellulitis and abscess of face Facial swelling Thrombocytopenia History of Klebsiella pneumonia Chronic heart failure with preserved ejection fraction (HFpEF) Anemia Hypertension Severe sepsis Hypoglycemia Hypothermia Assessment and Plan Assessment and plan all Dx Assessment and Plan for all problems:: Pharmacokinetic dosing service Objective: Age: 74 yo Serum creatinine: 1.1 mg/dL Height: 61.8 Inches Weight (kg): 57.697 Diagnosis: SEVERE SEPSIS Assessment: IBW (kg): 49.64 Dosing wt(kg): 57.697 Estimated Creatinine clearance (ml/min): 35.7 CRCL method: Cockcroft and Gault using ibw(default). Drug selected: Vancomycin Loading dose (mg): 1250 MG Vd (liters): 40.4 (factor used: 0.7 L/kg) Ty (hr-1): 0.034 Half life (hrs): 20.39 CLvanco=?? 1.374 L/hr Recommended dose: 1000 mg Interval: 36 hrs Infusion time (hrs): 2.0 Predicted peak (mcg/mL): 33.9 Predicted trough (mcg/mL): 10.67 Total body weight is being used for vancomycin dosing. Recommendations: Give Vancomycin 1000 mg q 36 hrs with an expected Cpeak of 33.9 mcg/ml and an expected Ctrough of 10.67 mcg/ml TO START 09/24/24 AT 17:00, PATIENT RECEIVED ONE TIME LOADING DOSE OF VANCOMYCIN 1250 MG ONCE IN THE ED 09/23/24 AT 05:05. AUC 0-24 /NABILA Data: NABILA 0.5 mcg/mL:?? AUC/NABILA:? 970.4 NABILA 1.0 mcg/mL:?? AUC/NABILA:? 485.2 --------- NABILA 1.5 mcg/mL:?? AUC/NABILA:? 323.5 NABILA 2.0 mcg/mL:?? AUC/NABILA:? 242.6 Thank you for the consult
--- NOTE | 2024-09-23 08:02 | SW/DCPLANNER ---
Patient currently resides at [facility] level of care. Dr Barrientos is recommending EOL/Hospice Care for this patient. Once form is completed I will fax to [facility] and continue to follow up. I will also update Mariajose oviedo/ [facility].
[2024-09-23] MEDS: DEXTROSE 50% 50ML SYRINGE (CRASH CART) 25 ML IV ×2 (08:03→14:06)
[2024-09-23 08:06] LABS: POC Glucose,Bedside 60 (70-110)
[2024-09-23] MEDS: IRON SUCROSE COMPLEX 200 MG in 0.9 % SODIUM CHLORIDE 100 ML 220 MG IV (08:25)
[2024-09-23] MEDS: ENOXAPARIN 40MG/0.4ML SYRINGE 40 MG SUBCUT (08:26)
[2024-09-23 08:30] LABS: POC Glucose,Bedside 152 (70-110)
--- NOTE | 2024-09-23 08:30 | P.CONPHA_ITS ---
Pharmacy Intervention Comments: JAYCEEEM MEDICATION LIST VERIFIED USING LIST FROM [facility]
--- NOTE | 2024-09-23 08:30 | HMH.PHAINT1 ---
Pharmacy Intervention Comments: JAYCEEEM MEDICATION LIST VERIFIED USING LIST FROM [facility]
[2024-09-23] MEDS: Dextrose 5 % and 0.9 % NaCl 1,000 ML 100 ML IV (09:31)
--- NOTE | 2024-09-23 10:01 | SW/DCPLANNER ---
Addendum entered by Kay Laura 09/25/24 12:34: Ioana w/ Hospice is reviewing patient information and will have a Hospice nurse evaluate once returning to [facility] today. Addendum entered by Kay Laura 09/25/24 11:59: Patient has been approved EOL/Hospice per State Nurse [facility] Support Liaison. Plan is for patient to return to [facility] level of care w/ Hospice to admit once she returns. Patient information has been faxed to [facility] and Hospice. Addendum entered by Kay Laura 09/25/24 09:59: I am currently waiting to hear back from Nurse Business Support Liaison regarding approval of EOL/Hospice Care for this patient. Addendum entered by Kay Laura 09/24/24 12:00: Per Dr Barrientos and Dr Galicia they are recommending EOL/Hospice Care for this patient. Process has been starting w/ Nurse Business Support Liaison. Original Note: Patient is currently [facility] level of care at [facility]. Updated patient information will be faxed to Mariajose oviedo/ [facility].
[2024-09-23 12:12] LABS: POC Glucose,Bedside 92 (70-110)
[2024-09-23 14:18] LABS: Chloride 111 mmol/L (98-107); Potassium 5.1 mmoL/L (3.5-5.1); Sodium 140 mmol/L (136-145)
[2024-09-23 14:21] LABS: Anion Gap 4.1 mEq/L (5-15); Blood Urea Nitrogen 20 mg/dl (7-17); Carbon Dioxide 30 mmol/L (22.0-30.0); Creatinine Clearance Estimated 33 mL/min (50-200); Estimated Glomerular Filt Rate 37 ml/min (>60); GFR (African American) 45 ML/MIN (>60)
[2024-09-23 14:22] LABS: Glucose 149 mg/dl (74-100)
[2024-09-23 14:23] LABS: POC Glucose,Bedside 64 (70-110)
[2024-09-23 16:35] LABS: POC Glucose,Bedside 83 (70-110)
[2024-09-23 16:51] LABS: Valproic Acid, (Depakene) < 10.0 ug/ml (50-100)
[2024-09-23] MEDS: VALPROIC ACID 250 MG in 0.9 % SODIUM CHLORIDE 100 ML 102.5 MG IV ×2 (17:06→21:09)
--- NOTE | 2024-09-23 18:08 | PC.NURSE ---
PT HAS IMPROVED THIS SHIFT. SHE IS MORE ALERT, GRUNTING AND HOLLERING OUT WITH Q2HR TURNS. VSS. TEMPERATURE IS WNL. SHE IS CURRENTLY OFF THE LEVO GTT. LUNG SOUNDS ARE CLEAR IN THE UPPER LOBS AND DIMINISHED IN THE LOWER, RHONCHI THIS AM.
--- NOTE | 2024-09-23 18:27 | EXP.PN ---
Subjective *Date: 09/23/24 *Time: 22:36 Interval history: Patient back to baseline this afternoon, mostly nonresponsive but groans and occasionally gets agitated/yells at staff. Would benefit from hospice care, waiting to hear from [facility]. Weaned off Levophed, Radha hugger. Continue vancomycin for MRSA pneumonia bacteremia. Zosyn until blood culture result. Exam Data for Last 24 hours Vital signs and Labs for Last 24 Hours: Temp Pulse Resp BP Pulse Ox O2 Del Method O2 Flow Rate 98.0 F 70 18 151/66 H 97 Room Air 2 09/23/24 16:00 09/23/24 18:00 09/23/24 18:00 09/23/24 18:00 09/23/24 18:00 09/23/24 18:00 09/23/24 04:31 Laboratory Results - last 24 hr 09/23/24 00:52: Urine Color Yellow, Urine Appearance Clear, Urine pH 7.0, Ur Specific [place] 1.015, Urine Protein Negative, Urine Glucose (UA) Negative, Urine Ketones Negative, Urine Blood Negative, Urine Nitrate Negative, Urine Bilirubin Negative, Urine Urobilinogen 0.2, Ur Leukocyte Esterase Negative, Urine RBC None, Urine WBC Occasional, Ur Squamous Epith Cells None, Ur Renal Epithelial Cell Occasional, Urine Bacteria Trace, Hyaline Casts 3-5 09/23/24 01:08: WBC 3.8 L, RBC 4.19 L, Hgb 9.1 L, Hct 29.2 L, MCV 69.7 L, MCH 21.7 L, MCHC 31.2 L, RDW 19.5 H, Plt Count 125 L, MPV TNP, Neut % (Auto) 65.1, Lymph % (Auto) 27.2, [place] % (Auto) 5.3, Eos % (Auto) 1.3, Baso % (Auto) 0.3, Neut # (Auto) 2.5, Lymph # (Auto) 1.0, [place] # (Auto) 0.2, Eos # (Auto) 0.1, Baso # (Auto) 0.0, Sodium 141, Potassium 4.9, Chloride 109 H, Carbon Dioxide 30, Anion Gap 6.9, BUN 24 H, Creatinine 1.10 H, Estimated Creat Clear 46, Estimated GFR 49 L, Est GFR ( Amer) 59, Glucose 80, Calcium 8.4, Magnesium 2.2, Total Bilirubin 0.2, AST 36, ALT 42, Alkaline Phosphatase 122, Total Protein 6.4, Albumin 3.2 L, Globulin 3.2, Albumin/Globulin Ratio 1.0 L, TSH 25.90 H, Thyroxine (T4) 11.5 H 09/23/24 01:10: VBG pH 7.33, VBG pCO2 55.3 H, VBG pO2 37.6, VBG HCO3 28.4, VBG Total CO2 30.1 H, VBG O2 Saturation 67.8, VBG Base Excess 2.5 H, VBG Lactic Acid 2.6 H 09/23/24 05:04: POC Glucose 82 09/23/24 05:26: WBC 3.7 L, RBC 3.39 L, Hgb 7.3 L D, Hct 23.3 L, MCV 68.7 L, MCH 21.5 L, MCHC 31.3 L, RDW 18.6 H, Plt Count 111 L, MPV TNP, Neut % (Auto) 68.5, Lymph % (Auto) 26.3, [place] % (Auto) 3.0, Eos % (Auto) 1.1, Baso % (Auto) 0.3, Neut # (Auto) 2.5, Lymph # (Auto) 1.0, [place] # (Auto) 0.1, Eos # (Auto) 0.0, Baso # (Auto) 0.0, Sodium 141, Potassium 5.1, Chloride 109 H, Carbon Dioxide 31 H, Anion Gap 6.1, BUN 22 H, Creatinine 1.10 H, Estimated Creat Clear 41, Estimated GFR 49 L, Est GFR ( Amer) 59, Glucose 69 L, Lactate 1.4, Calcium 8.2 L, Phosphorus 3.0, Magnesium 2.0, Total Bilirubin 0.2, AST 27, ALT 30 D, Alkaline Phosphatase 111, Total Protein 5.2 L, Albumin 2.6 L D, Globulin 2.6, Albumin/Globulin Ratio 1.0 L 09/23/24 07:55: POC Glucose 60 L 09/23/24 08:22: POC Glucose 152 H 09/23/24 12:03: POC Glucose 92 09/23/24 13:53: POC Glucose 64 L 09/23/24 14:06: Sodium 140, Potassium 5.1, Chloride 111 H, Carbon Dioxide 30, Anion Gap 4.1 L, BUN 20 H, Creatinine 1.40 H D, Estimated Creat Clear 33, Estimated GFR 37 L, Est GFR ( Amer) 45 L D, Glucose 149 H D, Calcium 8.0 L, Total Valproic Acid < 10.0 L 09/23/24 16:21: POC Glucose 83 I & O for Last 24 hours: Intake & Output 09/20/24 09/21/24 09/22/24 09/23/24 23:59 23:59 23:59 23:59 Intake Total 3655.378 / 3655.378 Balance 3655.378 / 3655.378 Weight 57.697 kg Constitutional Constitutional: mild distress, cachectic, chronically ill appearing, combative and agitated *Routine HEENT Exam Head: Present normocephalic Eye: Present EOMI and PERRL ENT: Present mucous membranes moist *Routine Neck Exam Neck: Present supple; Absent lymphadenopathy *Routine Respiratory Exam Respiratory: Present CTA bilaterally *Routine Cardiovascular Exam Cardiovascular: Present RRR *Routine Abdominal Exam Abdominal: Present soft and normoactive bowel sounds; Absent tenderness *Routine Extremities Exam Extremities: Absent cyanosis, clubbing or edema *Routine Skin Exam Skin: Present warm; Absent rash *Routine Neurological Exam Neurological: Present alert Assessment and Plan *Assessment and plan (1) Shock: Status: Acute Category: Medical Code(s): R57.9 - Shock, unspecified (2) Seizure disorder: Status: Acute Category: Medical Code(s): G40.909 - Epilepsy, unspecified, not intractable, without status epilepticus (3) Breakthrough seizure: Status: Acute Category: Medical Code(s): G40.919 - Epilepsy, unspecified, intractable, without status epilepticus (4) Metabolic encephalopathy: Status: Acute Category: Medical Code(s): G93.41 - Metabolic encephalopathy (5) Hypothermia: Status: Acute Category: Medical Code(s): T68.XXXA - Hypothermia, initial encounter (6) Hypothermia: Status: Acute Qualifiers: Encounter type: initial encounter Qualified Code(s): T68.XXXA - Hypothermia, initial encounter Category: Medical Code(s): T68.XXXA - Hypothermia, initial encounter (7) Hypothyroidism: Status: Acute Category: Medical Code(s): E03.9 - Hypothyroidism, unspecified (8) Atrial fibrillation: Problem Comment: history of Status: Acute Category: Medical Code(s): I48.91 - Unspecified atrial fibrillation (9) Dementia: Status: Acute Category: Medical Code(s): F03.90 - Unspecified dementia, unspecified severity, without behavioral disturbance, psychotic disturbance, mood disturbance, and anxiety (10) Severe protein-calorie malnutrition: Status: Acute Category: Medical Code(s): E43 - Unspecified severe protein-calorie malnutrition (11) Functional quadriplegia: Status: Acute Category: Medical Code(s): R53.2 - Functional quadriplegia Bernie Valdivia is a 74-year-old long-term care patient with seizure disorder, hypothyroid, dementia from retirement. Presents with seizure-like activity, shock and hypothermia. Etiology concerning for sepsis versus hypovolemic versus myxedema. Unable to maintain body temperature at this time. Received warmed fluids in the ER, placed on Radha hugger. Discussed case with ER physician, request admission for further management due to severe hemodynamic instability eptic shock versus myxedema coma. Protecting airway but nonresponsive on exam. Body temperature still in the low 90s on evaluation. Admitted to ICU. Prognosis poor. Problems addressed as follows: #Sepsis with septic shock #Staph bacteremia #MRSA pneumonia #Hypothermia - Presented with hypotension, lactic acidosis, tachycardia. Improving. Weaned off Levophed today. ? Blood cultures last admission positive for Staph epidermidis which is usually a contaminant. However, positive in 2 out of 2 bottles suggesting septic shock from bacteremia. ? Respiratory culture also positive for MRSA last admission. Treated with Bactrim at the nursing facility, though unclear if patient was able to tolerate this orally. ? UA unremarkable. ? WBC plateaued at 3.7. Hypothermia improved, currently 98 Fahrenheit, weaned off Radha hugger. ? Started vancomycin for MRSA pneumonia, bacterium as above. Continue Zosyn empirically pending repeat blood cultures. Hypoglycemia: Struggled with hypoglycemia last visit necessitating dextrose and oral glucose supplementation due to poor p.o. intake. Glucose 80 on admission, and continues to be low on repeat checks. Likely from sepsis. Started on IV D5 W at 75 L/h. #Hypothyroidism #Hypothermia - Possible element of myexedema contributing to altered mental status Versus sepsis above. - TSH of 117 on 09/06/2024, repeat on admission of 25. - Unable to tolerate oral at this time, continue levothyroxine 100 mcg daily IV - Holding clonidine 0.1 mg TID per home regimen due to hypotension #Dementia #Seizure disorder - Versed 5 mg IV administered once in the ER. Continue 5 mg IM every 6 hours as needed for seizure disorder/breakthrough seizures - Normally on Depakote, due to obtundation, received 500 mg IV once a valproic acid in the ER - Started IV Depakote 250 mg twice daily - Holding Remeron 15 mg nightly and olanzapine 7.5 mg twice daily due to inability to rate p.o. intake at this time. I have extensively tried to understand patient's goals of care today given her recurrent critical condition admissions and multiple advanced comorbidities. She is currently a [facility]. Unfortunately, at baseline patient has dementia and cannot meaningfully communicate her needs or desires, or participate in meaningful conversations with others or other activities in life, blind in both eyes, functionally paraplegic/bedbound, with underlying cognitive delays, intellectual disability, and CVA to name a few. On my evaluation of Ms. Valdivia this morning, she was encephalopathic due to sepsis as above. Therefore, I allowed patient to improve throughout the course of the day before deciding on what would be in her best interest in the long-term. This afternoon, patient's mentation improved with treatment of sepsis. She is essentially back to her baseline. Unfortunately, even after multiple attempts at meaningful conversation with Ms. Valdivia she was not responding appropriately due to dementia; but did groan with pain when her bed sheets were being changed. As such, patient can somewhat appreciate her surroundings/department but cannot meaningfully express desires/needs effectively to participate in daily activities of life. In this essence, I believe patient's current condition and her comorbidities are very much prolonging patient's suffering, which are hindering her to have a good quality of life, especially as she is not able to meaningfully appreciate even the joys of life. This puts her at a high risk for further deterioration, including but not limited to recurrent UTIs and pneumonia that may lead to unnecessary critical care admissions requiring intensive resuscitative measures increase the burden the patient. As such, I agree with Dr. Barrientos's recommendation and I, too, recommend hospice and end-of-life care for Ms. Valdivia. This would be in her best interest to reduce unspoken suffering and help mitigate and hopefully augment her quality of life she has left with us. - If transition to hospice care, would recommend holding vasopressors, antibiotics, all oral medications. Would treat pain and anxiety with Ativan and morphine. Would not administer any nutrition via tube. Would allow for comfort feeds if patient was alert and expressing interest in eating. Would not check labs or monitor glucose. Would discontinue supportive devices to augment body temperature. - Case management consulted to assist with hospice recommendation to state guardian. DNR/DNI Lovenox 40 mg subcu daily
[2024-09-23 19:38] LABS: POC Glucose,Bedside 75 (70-110)
--- NOTE | 2024-09-23 19:54 | PC.NURSE ---
FSBS 75 . rectal temp 96.7. warm blankets applied.
[2024-09-23] MEDS: Dextrose 5 % and 0.9 % NaCl 1,000 ML 75 ML IV (21:03)
[2024-09-24] VITALS (33 sets, daily range): BP systolic 99–165; BP diastolic 47–102; PULSE 20–92; RESP 10–20; TEMP 34.9–36.8; O2SAT 96–100; BMI 23.8
[2024-09-24 02:15] LABS: POC Glucose,Bedside 94 (70-110)
[2024-09-24 02:15] LABS: POC Glucose,Bedside 73 (70-110)
[2024-09-24 02:15] LABS: POC Glucose,Bedside 73 (70-110)
[2024-09-24 02:15] LABS: POC Glucose,Bedside 103 (70-110)
[2024-09-24 02:15] LABS: POC Glucose,Bedside 106 (70-110)
[2024-09-24 02:15] LABS: POC Glucose,Bedside 89 (70-110)
--- NOTE | 2024-09-24 02:30 | PC.NURSE ---
rectal temp 97.6. shahriar banegas removed at this time
[2024-09-24] MEDS: PIPERACILLIN/TAZO 4.5 GM in 0.9 % SODIUM CHLORIDE 100 ML IV ×3 (03:15→16:56)
--- NOTE | 2024-09-24 03:15 | PC.NURSE ---
Addendum entered by Yamileth Drummond RN 09/24/24 03:16: Received report from Viola PENA Original Note: This RN took over care for patient at 0230.
--- NOTE | 2024-09-24 04:10 | PC.NURSE ---
Rectal temp 96.7, warm blankets applied
[2024-09-24] MEDS: LORazepam 2MG/ML VIAL 1 MG IV ×2 (04:41→19:07)
--- NOTE | 2024-09-24 05:21 | PC.NURSE ---
043 patient became very agitated, yelling, kicking legs out of bed multiple times setting bed alarm off, Afua WRAY called for agitation, new orders received and carried out per JUN.
[2024-09-24 06:09] LABS: Basophils % 0.3 % (0.1-2.0); Eosinophils % 0.9 % (0.1-12.0); Hematocrit 21.8 % (37.0-47.0); Immature Granulocytes # 0.02 10^3uL; Immature Granulocytes % 0.6 %; Lymphocytes # 0.9 K/mm3 (0.7-4.5); Mean Corpuscular HGB Conc 31.7 g/dL (31.8-35.4); Mean Corpuscular Hemoglobin 21.8 pg (27.0-31.2); Monocytes # 0.3 K/mm3 (0.1-1.0); Monocytes % 9.1 % (1.7-9.3); Neutrophils # 2.1 K/mm3 (1.8-7.8); Neutrophils % 62.1 % (37.0-80.0); Nucleated Red Blood Cells # 0.03 10^3/uL; Nucleated Red Blood Cells % 0.9 %; Platelet Count 115 K/mm3 (142-424); Red Blood Count 3.16 M/mm3 (4.20-5.40); Red Cell Distribution Width 18.7 % (11.5-17.5); Red Cell Distribution Width-SD 44.5 fL; White Blood Count 3.3 K/mm3 (4.8-10.8)
[2024-09-24 06:11] LABS: Hemoglobin 6.9 g/dL (12.2-16.2)
[2024-09-24 06:16] LABS: Alanine Aminotransferase 24 U/L (12-78); Albumin Level 2.4 g/dl (3.5-5.0); Albumin/Globulin Ratio 0.9 (1.1-1.8); Alkaline Phosphatase 101 U/L (38-126); Aspartate Amino Transferase 22 U/L (14-36); Bilirubin,Total 0.3 mg/dl (0.2-1.3); Blood Urea Nitrogen 16 mg/dl (7-17); Carbon Dioxide 28 mmol/L (22.0-30.0); Chloride 115 mmol/L (98-107); Creatinine Clearance Estimated 33 mL/min (50-200); Estimated Glomerular Filt Rate 37 ml/min (>60); GFR (African American) 45 ML/MIN (>60); Globulin 2.8 g/dL (1.3-3.2); Glucose 73 mg/dl (74-100); Magnesium 1.9 mg/dl (1.6-2.3); Sodium 142 mmol/L (136-145); Total Protein,Serum 5.2 g/dl (6.3-8.2)
--- NOTE | 2024-09-24 06:16 | PC.NURSE ---
Attempted to call Afua WRAY to report critical hgb 6.9, no answer at this time.
[2024-09-24 06:26] LABS: Anion Gap 3.4 mEq/L (5-15); Potassium 4.4 mmoL/L (3.5-5.1)
[2024-09-24] MEDS: LEVOTHYROXINE SODIUM 100 MCG VIAL IV (06:50)
[2024-09-24] MEDS: VALPROIC ACID 250 MG in 0.9 % SODIUM CHLORIDE 100 ML 102.5 MG IV ×2 (08:32→20:37)
[2024-09-24 08:49] LABS: POC Glucose,Bedside 82 (70-110)
--- NOTE | 2024-09-24 10:08 | PC.NURSE ---
Addendum entered by Tara Willett RN 09/24/24 15:01: at 1325 pt's rectal temp 96.9. warm blankets applied. pt was awake and was able to tolerate drinking 2 cups or orange juice and ate a container of pudding. pt's speech is very difficult to understand. last blood sugar was 82. Original Note: rectal temp 97.5. bare hugger removed at this time. pt turned and repositioned. continues to be covered with warm blankets.
[2024-09-24 10:43] LABS: POC Glucose,Bedside 116 (70-110)
--- NOTE | 2024-09-24 11:22 | P.PN_ITS ---
Subjective *Date: 09/24/24 *Time: 11:22 Interval history: No response on exam. Body temperature improved to 97.4. Still requiring Radha hugger. On room air. No response to nursing staff either verbal or physical. Medical Exam Vital signs and Labs for Last 24 Hours: Vital Signs Temp Pulse Pulse Resp BP BP Pulse Ox 09/24/24 11:15 97.4 F L 62 16 121/53 L 99 09/24/24 11:10 98.1 F 63 18 113/55 L 97 09/24/24 11:05 98.1 F 65 16 125/68 99 09/24/24 11:00 98.3 F 69 16 160/79 H 99 09/24/24 10:45 97.9 F 65 16 116/61 100 09/24/24 10:00 60 14 100/60 L 96 09/24/24 08:00 09/24/24 08:00 97.1 F L 09/24/24 08:00 56 L 16 99/47 L 97 09/24/24 07:00 57 L 20 102/51 L 98 09/24/24 06:56 09/24/24 06:00 95.4 F L 56 L 18 124/65 98 09/24/24 05:43 55 L 09/24/24 05:00 96.4 F L 57 L 15 133/67 99 09/24/24 05:00 09/24/24 04:00 70 09/24/24 04:00 09/24/24 04:00 96.7 F L 59 L 15 149/90 H 100 09/24/24 03:00 09/24/24 03:00 97.4 F L 61 18 133/76 99 09/24/24 02:00 97.6 F 68 10 L 130/62 99 09/24/24 01:00 09/24/24 01:00 96.2 F L 57 L 15 108/52 L 98 09/24/24 00:00 09/24/24 00:00 95.5 F L 55 L 15 148/64 H 99 09/23/24 23:00 09/23/24 23:00 63 15 163/93 H 100 09/23/24 22:00 96.4 F L 61 15 145/78 H 100 09/23/24 21:00 67 13 155/80 H 100 09/23/24 21:00 09/23/24 20:00 80 09/23/24 20:00 09/23/24 20:00 96.7 F L 64 12 164/86 H 99 09/23/24 19:00 66 12 140/69 98 09/23/24 18:50 09/23/24 18:30 64 16 131/74 95 09/23/24 18:00 70 18 151/66 H 97 09/23/24 17:45 70 16 126/63 97 09/23/24 17:30 66 18 130/68 96 09/23/24 17:15 67 16 129/73 97 09/23/24 17:00 09/23/24 17:00 65 18 122/77 100 09/23/24 16:30 65 16 119/63 99 09/23/24 16:00 09/23/24 16:00 98.0 F 69 16 135/66 97 09/23/24 16:00 76 09/23/24 15:30 70 16 128/69 97 09/23/24 15:00 09/23/24 15:00 76 16 139/91 H 98 09/23/24 14:30 74 16 112/57 L 99 09/23/24 14:00 72 16 112/57 L 98 09/23/24 13:00 76 14 98/51 L 95 09/23/24 13:00 09/23/24 12:00 79 09/23/24 12:00 09/23/24 12:00 99.6 F 82 16 118/54 L 94 L O2 Del Method 09/24/24 11:15 09/24/24 11:10 09/24/24 11:05 09/24/24 11:00 09/24/24 10:45 09/24/24 10:00 Room Air 09/24/24 08:00 Room Air 09/24/24 08:00 09/24/24 08:00 Room Air 09/24/24 07:00 Room Air 09/24/24 06:56 Room Air 09/24/24 06:00 Room Air 09/24/24 05:43 09/24/24 05:00 Room Air 09/24/24 05:00 Room Air 09/24/24 04:00 09/24/24 04:00 Room Air 09/24/24 04:00 Room Air 09/24/24 03:00 Room Air 09/24/24 03:00 Room Air 09/24/24 02:00 Room Air 09/24/24 01:00 Room Air 09/24/24 01:00 09/24/24 00:00 Room Air 09/24/24 00:00 Room Air 09/23/24 23:00 Room Air 09/23/24 23:00 Room Air 09/23/24 22:00 Room Air 09/23/24 21:00 Room Air 09/23/24 21:00 Room Air 09/23/24 20:00 09/23/24 20:00 Room Air 09/23/24 20:00 Room Air 09/23/24 19:00 Room Air 09/23/24 18:50 Room Air 09/23/24 18:30 Room Air 09/23/24 18:00 Room Air 09/23/24 17:45 Room Air 09/23/24 17:30 Room Air 09/23/24 17:15 Room Air 09/23/24 17:00 Room Air 09/23/24 17:00 Room Air 09/23/24 16:30 Room Air 09/23/24 16:00 Room Air 09/23/24 16:00 Room Air 09/23/24 16:00 09/23/24 15:30 Room Air 09/23/24 15:00 Room Air 09/23/24 15:00 Room Air 09/23/24 14:30 Room Air 09/23/24 14:00 Room Air 09/23/24 13:00 Room Air 09/23/24 13:00 Room Air 09/23/24 12:00 09/23/24 12:00 Room Air 09/23/24 12:00 Room Air Intake and Output 09/23/24 09/24/24 09/24/24 23:59 07:59 15:59 Intake Total 672.072 / 4407.378 989 / 1317 328 / 1317 Output Total 150 / 150 Balance 672.072 / 4407.378 839 / 1167 328 / 1167 Intake: Intake, Total IV Amount 672.072 / 4407.378 989 / 1317 328 / 1317 Dextrose 5 % and 0.9 % NaCl 1, 475 / 1210 701 / 839 138 / 839 000 ml @ 75 mls/hr IV .[id number] [facility] Rx#:[id number] Piperacillin/Tazo 4.5 gm In 0.9 100 / 392 100 / 195 95 / 195 % Sodium Chloride 100 ml @ 200 mls/hr IV ONCE ONE Rx#: [id number] Valproic Acid 250 mg In 0.9 % 94 / 282 188 / 188 Sodium Chloride 100 ml @ 102.5 mls/hr IV BID [facility] Rx#:[id number] Valproic Acid 500 mg In 0.9 % 95 / 95 Sodium Chloride 100 ml @ 105 mls/hr IV ONCE ONE Rx#:[id number] Intake (Blood Product) Amt 0 / 0 Red Blood Cells Unit 0 / 0 [id number] Output: Output, Urine Amount 150 / 150 Other: Number of Unmeasured Voids 1 1 Number of Bowel Movements 1 Weight 58.786 kg Patient Weight 09/24/24 23:59 Weight 58.786 kg Laboratory Results - last 24 hr 09/23/24 12:03: POC Glucose 92 09/23/24 13:53: POC Glucose 64 L 09/23/24 14:06: Sodium 140, Potassium 5.1, Chloride 111 H, Carbon Dioxide 30, Anion Gap 4.1 L, BUN 20 H, Creatinine 1.40 H D, Estimated Creat Clear 33, Estimated GFR 37 L, Est GFR ( Amer) 45 L D, Glucose 149 H D, Calcium 8.0 L, Total Valproic Acid < 10.0 L 09/23/24 14:28: POC Glucose 116 H 09/23/24 16:21: POC Glucose 83 09/23/24 19:30: POC Glucose 75 09/23/24 20:05: POC Glucose 73 09/23/24 20:24: POC Glucose 103 09/23/24 21:01: POC Glucose 106 09/23/24 22:20: POC Glucose 73 09/23/24 22:53: POC Glucose 89 09/24/24 00:17: POC Glucose 94 09/24/24 05:55: WBC 3.3 L, RBC 3.16 L, Hgb 6.9 L, Hct 21.8 L, MCV 69.0 L, MCH 21.8 L, MCHC 31.7 L, RDW 18.7 H, Plt Count 115 L, MPV TNP, Neut % (Auto) 62.1, Lymph % (Auto) 27.0, Scott % (Auto) 9.1, Eos % (Auto) 0.9, Baso % (Auto) 0.3, Neut # (Auto) 2.1, Lymph # (Auto) 0.9, Scott # (Auto) 0.3, Eos # (Auto) 0.0, Baso # (Auto) 0.0, Sodium 142, Potassium 4.4, Chloride 115 H, Carbon Dioxide 28, Anion Gap 3.4 L, BUN 16, Creatinine 1.40 H, Estimated Creat Clear 33, Estimated GFR 37 L, Est GFR ( Amer) 45 L, Glucose 73 L D, Calcium 8.0 L, Magnesium 1.9, Total Bilirubin 0.3, AST 22, ALT 24, Alkaline Phosphatase 101, Total Protein 5.2 L, Albumin 2.4 L, Globulin 2.8, Albumin/Globulin Ratio 0.9 L, Blood Type Confirm O Positive 09/24/24 08:29: POC Glucose 82 09/24/24 08:37: Blood Type O Positive, Antibody Screen Negative, Crossmatch (AHG) See Detail I & O for Labs for Last 24 Hours: Intake & Output 09/21/24 09/22/24 09/23/24 09/24/24 23:59 23:59 23:59 23:59 Intake Total 4010.378 / 4407.378 1317 / 1317 Output Total 150 / 150 Balance 4010.378 / 4407.378 1167 / 1167 Weight 57.697 kg 58.786 kg Microbiology Reports for the Last 24 Hours: Microbiology 09/23/24 01:20 Blood Blood Culture - Preliminary NO GROWTH AFTER 24 HOURS 09/23/24 01:08 Blood Blood Culture - Preliminary NO GROWTH AFTER 24 HOURS Constitutional: Present moderate distress, thin, disheveled and obtunded Head: Present atraumatic Respiratory: Present normal respiratory effort; Absent rhonchi, wheezes or crackles Cardiac: Present Reg Rate and Rhythm GI: Present soft; Absent distention Comment:: No response to staff. No response to verbal or physical stimuli. Frankly obtunded. Lying in position on her left side. Assessment and Plan *Assessment and plan (1) Shock: Status: Acute Category: Medical Code(s): R57.9 - Shock, unspecified (2) Seizure disorder: Status: Acute Category: Medical Code(s): G40.909 - Epilepsy, unspecified, not intractable, without status epilepticus (3) Breakthrough seizure: Status: Acute Category: Medical Code(s): G40.919 - Epilepsy, unspecified, intractable, without status epilepticus (4) Metabolic encephalopathy: Status: Acute Category: Medical Code(s): G93.41 - Metabolic encephalopathy (5) Hypothermia: Status: Acute Category: Medical Code(s): T68.XXXA - Hypothermia, initial encounter (6) Hypothermia: Status: Acute Qualifiers: Encounter type: initial encounter Qualified Code(s): T68.XXXA - Hypothermia, initial encounter Category: Medical Code(s): T68.XXXA - Hypothermia, initial encounter (7) Hypothyroidism: Status: Acute Category: Medical Code(s): E03.9 - Hypothyroidism, unspecified (8) Atrial fibrillation: Problem Comment: history of Status: Acute Category: Medical Code(s): I48.91 - Unspecified atrial fibrillation (9) Dementia: Status: Acute Category: Medical Code(s): F03.90 - Unspecified dementia, unspecified severity, without behavioral disturbance, psychotic disturbance, mood disturbance, and anxiety (10) Severe protein-calorie malnutrition: Status: Acute Category: Medical Code(s): E43 - Unspecified severe protein-calorie malnutrition (11) Functional quadriplegia: Status: Acute Category: Medical Code(s): R53.2 - Functional quadriplegia Bernie Valdivia is a 74-year-old long-term care patient with seizure disorder, hypothyroid, dementia from long term. Presents with seizure-like activity, shock and hypothermia. Etiology concerning for sepsis versus hypovolemic versus myxedema. Unable to maintain body temperature at this time. Received warmed fluids in the ER, placed on Radha hugger. Discussed case with ER physician, request admission for further management due to severe hemodynamic instability septic shock versus myxedema coma. Protecting airway but nonresponsive on exam. Body temperature improving with Radha hugger. No p.o. intake. Continuing ICU care. Prognosis grave, condition critical. Problems addressed as follows: #Sepsis with septic shock #Staph bacteremia #MRSA pneumonia #Hypothermia - Presented with hypotension, lactic acidosis, tachycardia. Improving. Off Levophed for 24 hours. ? Blood cultures last admission positive for Staph epidermidis which is usually a contaminant. However, positive in 2 out of 2 bottles suggesting septic shock from bacteremia. ? Respiratory culture also positive for MRSA last admission. Treated with Bactrim at the nursing facility, though unclear if patient was able to tolerate this orally. ? UA unremarkable. ? WBC decreased today to 3.3. Still on Radha hugger, body temperature 97.4 - On broad-spectrum antibiotics as of yesterday with vancomycin and Zosyn. No clinical improvement. Hypoglycemia: - Struggled with hypoglycemia last visit necessitating dextrose and oral glucose supplementation due to poor p.o. intake. Glucose 73 this morning - Monitoring glucose every 4 hours - Continue IV D5 W at 75 L/h. #Hypothyroidism #Hypothermia - Possible element of myexedema contributing to altered mental status Versus sepsis above. - TSH of 117 on 09/06/2024, repeat on admission of 25. - Unable to tolerate oral at this time, continue levothyroxine 100 mcg daily IV - Holding clonidine 0.1 mg TID per home regimen due to hypotension #Dementia #Seizure disorder - Versed 5 mg IV administered once in the ER. Continue 5 mg IM every 6 hours as needed for seizure disorder/breakthrough seizures - Normally on Depakote, due to obtundation, received 500 mg IV once a valproic acid in the ER - Started IV Depakote 250 mg twice daily - Holding Remeron 15 mg nightly and olanzapine 7.5 mg twice daily due to inability to rate p.o. intake at this time. Patient presented in septic shock that is not compatible with life without aggressive life-prolonging measures. Has significant chronic comorbidities in addition to her repeat presentation in less than 2 weeks for shock state with hypothermia, hypotension, obtundation. Chronic conditions include significant support for all ADLs, dementia, seizure disorder, hypothyroid At this time patient has no meaningful response to staff. She is unresponsive to both verbal and physical stimuli. In her unconscious state that has persisted since admission, I do not foresee any improvement. I would recommend transitioning to hospice care as is eminent (within days) if life- prolonging measures are discontinued. I would recommend transitioning to hospice style care/comfort care including withdrawal of the following treatments: - Would discontinue any vasopressors (such as Levophed) and not resume any vasopressors to support hypotension/shock - Would recommend discontinuing all IV fluids - Would recommend discontinuing all antibiotics - Would recommend discontinuing all oral medications - Would recommend initiating morphine for pain control and Ativan for anxiety or seizures - Would not administer any nutrition via tube or pursue feeding tube to prolong life. Would allow for comfort feeds if patient developed any alertness or expressed interest in eating - Would discontinue supportive devices to augment body temperature. - Would discontinue dextrose infusions for hypoglycemia - would not recommend further labs due to the pain of blood draws not being consistent with comfort care. - Recommend holding anticoagulation due to worsening anemia DNR/DNI Holding anticoagulation due to worsening anemia
[2024-09-24 11:51] LABS: POC Glucose,Bedside 66 (70-110)
[2024-09-24] MEDS: Dextrose 5 % and 0.9 % NaCl 1,000 ML 75 ML IV ×2 (12:07→23:11)
[2024-09-24 13:29] LABS: POC Glucose,Bedside 82 (70-110)
[2024-09-24 14:59] LABS: Hematocrit 25.8 % (37.0-47.0)
[2024-09-24 15:16] LABS: Hemoglobin 8.4 g/dL (12.2-16.2)
[2024-09-24 16:15] LABS: POC Glucose,Bedside 81 (70-110)
[2024-09-24 16:15] LABS: POC Glucose,Bedside 81 (70-110)
[2024-09-24 16:15] LABS: POC Glucose,Bedside 121 (70-110)
[2024-09-24 16:15] LABS: POC Glucose,Bedside 87 (70-110)
[2024-09-24 16:15] LABS: POC Glucose,Bedside 106 (70-110)
[2024-09-24 16:15] LABS: POC Glucose,Bedside 81 (70-110)
[2024-09-24 16:15] LABS: POC Glucose,Bedside 71 (70-110)
[2024-09-24] MEDS: VANCOMYCIN HCL 1,000 MG in 0.9 % SODIUM CHLORIDE 250 ML 125 MG IV (17:04)
[2024-09-24 20:15] LABS: POC Glucose,Bedside 75 (70-110)
[2024-09-24] MEDS: PANTOPRAZOLE 40MG VIAL 40 MG IV (20:38)
[2024-09-24 22:12] LABS: POC Glucose,Bedside 81 (70-110)
[2024-09-25] VITALS (20 sets, daily range): BP systolic 127–205; BP diastolic 59–182; PULSE 61–77; RESP 8–21; TEMP 35.2–37.3; O2SAT 97–100; BMI 22.3
[2024-09-25] MEDS: PIPERACILLIN/TAZO 4.5 GM in 0.9 % SODIUM CHLORIDE 100 ML IV ×3 (01:36→17:48)
[2024-09-25 02:43] LABS: POC Glucose,Bedside 78 (70-110)
[2024-09-25 06:11] LABS: POC Glucose,Bedside 70 (70-110)
[2024-09-25] MEDS: LEVOTHYROXINE SODIUM 100 MCG VIAL IV (06:44)
--- NOTE | 2024-09-25 08:34 | PC.NURSE ---
Patients blood sugar is 55. Dr. Barrientos aware. Dr. Barrientos states Give patient orange juice. Primary RN voiced concern for aspiration. Dr. Walter states to give OJ. Patient sat up in bed and yonker suction on at bedside. Continuation of care plan.
--- NOTE | 2024-09-25 08:35 | PC.NURSE ---
Addendum entered by Megan Carcamo RN 09/25/24 08:53: 0850 - FS recheck Jason, made aware. Original Note: FS 55, MD aware. Pt awake and able to tolerate PO intake. okay w/ giving pt orange juice @ this time and rechecking.
[2024-09-25 08:36] LABS: POC Glucose,Bedside 55 (70-110)
[2024-09-25 08:58] LABS: POC Glucose,Bedside 76 (70-110)
--- NOTE | 2024-09-25 09:25 | PC.NURSE ---
notified of no labs ordered this AM. Dr. Walter states he does not want labs ordered on patient this AM. Continuation of care plan.
[2024-09-25] MEDS: OLANZapine 5 MG ODT TABLET 7.5 MG SL (09:53)
[2024-09-25] MEDS: POLYETHYLENE GLYCOL 3350 17 GM PACKET PO (10:01)
--- NOTE | 2024-09-25 12:05 | EXP.DC.SUM ---
General Admission date:: 09/23/24 Discharge date: 09/25/24 HPI HPI HPI: Ms. Valdivia is a 74-year-old female with history of hypertension, hyperlipidemia, CVA, dementia, A-fib, CKD, seizure disorder, hypothyroid. She was recently admitted 11 days ago for sepsis from UTI along with concern for myxedema coma given severe hypothyroid with TSH greater than 110, hypothermia, acute encephalopathy. Showed some improvement and was discharged back to nursing facility on oral levothyroxine and ertapenem IM. She presents tonight very similarly to 10 days ago with hypothermia and altered mental status after what appeared to be seizure-like activity. Patient was found off her bed mat on the floor on evening rounds where her blood glucose was going to be evaluated. She was shaking and having what appeared to be a seizure. EMS was called and she was sent to the ER for further management. On arrival, patient is hypotensive, hypothermic, encephalopathic. Appeared postictal in the ER. Received a dose of Versed. Labs obtained showing leukopenia. In light of her lab abnormalities, hemodynamic instability, patient being treated for septic shock with initiation of Zosyn and Levophed. Placed on Radha hugger and administered 2 L of warmed IV fluids. Medicine consulted for admission and further management. Admitted to the ICU due to her hemodynamic instability. Cultures obtained in the ER. TSH improved at this time from 117 two weeks ago, to 25 today. T4 elevated 11.5. Evaluation after arriving to the floor, patient obtunded and unable to provide any history. No meaningful response to verbal or physical stimuli Hospital Course Hospital Course Hospital Course: Malorie Valdivia is a 74-year-old long-term care patient with seizure disorder, hypothyroid, dementia from [facility]. Presents with seizure-like activity, shock and hypothermia. Etiology concerning for sepsis versus hypovolemic versus myxedema. Unable to maintain body temperature at this time. Received warmed fluids in the ER, placed on Radha hugger. Discussed case with ER physician, request admission for further management due to severe hemodynamic instability septic shock versus myxedema coma. Protecting airway but nonresponsive on exam. Body temperature improving with Radha hugger. No p.o. intake. Initially treated in the ICU. Prognosis was grave. Recommendations made to transition to hospice care. On day of discharge, had slight improvement in mentation but still has no meaningful p.o. intake or nutritional intake. Is taking p.o. medications at this time. Will discharge back to her long-term care facility on hospice care. Problems addressed as follows: #Sepsis with septic shock #Staph bacteremia #MRSA pneumonia #Hypothermia - Presented with hypotension, lactic acidosis, tachycardia. Improved off Levophed after 24 hours. Initially had hypothermia that took over 48 hours to improve after use of a Radha hugger. Cultures obtained that were negative this visit. Cultures last visit had mixed pathogens of staph. None of her cultures this visit have grown positive. Has completed 5 days of antibiotics. Did not see a need to continue antibiotics at this time. Discontinue broad-spectrum antibiotics at discharge. No concern for bacteremia on this admission. Appears previous cultures are likely contaminant versus legitimate bacteremia. Repeat cultures did not grow staph. Stable on room air. No concern for any further pneumonia at this time. Hypoglycemia: - Struggled with hypoglycemia last visit necessitating dextrose and oral glucose supplementation due to poor p.o. intake. Glucose been variable. Continue oral supplementation as needed to maintain glucose. Allow for comfort feeds. #Hypothyroidism #Hypothermia - Possible element of myexedema contributing to altered mental status Versus sepsis above. TSH of 117 on 09/06/2024, repeat on admission of 25. Treated with IV levothyroxine. Resume levothyroxine 125 mcg daily. Recommend decreasing clonidine to 0.1 mg twice daily for hypertension as her hypotensive state normalized. #Dementia #Seizure disorder - Versed 5 mg IV administered once in the ER. Did not require any further Versed. Initiated on IV Depakote 500 mg once in the ER, continue 250 mg twice daily. Resumed home oral regimen after able to take p.o. medications. Resume home Remeron and olanzapine at discharge. Patient presented in septic shock that is not compatible with life without aggressive life-prolonging measures. Has significant chronic comorbidities in addition to her repeat presentation in less than 2 weeks for shock state with hypothermia, hypotension, obtundation. I am recommending hospice care and comfort measures along with termination of life-prolonging treatments to include termination of IV fluids, IV antibiotics, supplemental nutrition, vasopressors, and withholding of care to include not placing a feeding tube due to imminent from septic shock in the setting of dementia with severe protein calorie malnutrition. At time of writing this recommendation, appeared imminent within days. Patient was unresponsive to staff. Patient has been determined to be appropriate for hospice per the state. Continue recommend hospice care given her recurrent episodes of hypotension, hypothermia, obtundation and sepsis. I would recommend transitioning to hospice style care/comfort care including withdrawal of the following treatments: - Would discontinue any vasopressors (such as Levophed) and not resume any vasopressors to support hypotension/shock - Would recommend discontinuing all IV fluids - Would recommend discontinuing all antibiotics - Would recommend discontinuing all oral medications - Would recommend initiating morphine for pain control and Ativan for anxiety or seizures - Would not administer any nutrition via tube or pursue feeding tube to prolong life. Would allow for comfort feeds if patient developed any alertness or expressed interest in eating - Would discontinue supportive devices to augment body temperature. - Would discontinue dextrose infusions for hypoglycemia - would not recommend further labs due to the pain of blood draws not being consistent with comfort care. - Recommend holding anticoagulation due to worsening anemia Total time spent on discharge 42 minutes in counseling, documentation, chart review, and direct care with patient. Exam Data for Last 24 hours Vital signs and Labs for Last 24 Hours: Temp Pulse Resp BP Pulse Ox O2 Del Method O2 Flow Rate 97.7 F 70 12 185/84 H 97 Room Air 2 09/25/24 07:02 09/25/24 09:30 09/25/24 09:30 09/25/24 09:25 09/25/24 09:30 09/25/24 10:28 09/23/24 04:31 Laboratory Results - last 24 hr 09/24/24 01:07: POC Glucose 87 09/24/24 02:15: POC Glucose 106 09/24/24 03:01: POC Glucose 81 09/24/24 03:59: POC Glucose 81 09/24/24 05:08: POC Glucose 71 09/24/24 06:11: POC Glucose 81 09/24/24 08:37: Crossmatch (AHG) See Detail 09/24/24 13:21: POC Glucose 82 09/24/24 14:25: Hgb 8.4 L D, Hct 25.8 L 09/24/24 16:09: POC Glucose 121 H 09/24/24 20:08: POC Glucose 75 09/24/24 22:01: POC Glucose 81 09/25/24 02:36: POC Glucose 78 09/25/24 05:59: POC Glucose 70 09/25/24 08:28: POC Glucose 55 L 09/25/24 08:50: POC Glucose 76 I & O for Last 24 hours: Intake & Output 09/22/24 09/23/24 09/24/24 09/25/24 23:59 23:59 23:59 23:59 Intake Total 4010.378 / 4407.378 2087 / 2287 200 / 200 Output Total 150 / 150 Balance 4010.378 / 4407.378 1937 / 2137 200 / 200 Weight 57.697 kg 58.786 kg 55.066 kg Microbiology Reports for the Last 24 Hours: Microbiology 09/23/24 01:20 Blood Blood Culture - Preliminary NO GROWTH AFTER 48 HOURS 09/23/24 01:08 Blood Blood Culture - Preliminary NO GROWTH AFTER 48 HOURS Constitutional Constitutional: mild distress, thin and chronically ill appearing Comments: Intermittently somnolent and then agitated *Routine HEENT Exam Head: Present normocephalic Eye: Present EOMI and PERRL ENT: Present mucous membranes moist *Routine Neck Exam Neck: Present supple; Absent lymphadenopathy *Routine Respiratory Exam Respiratory: Present CTA bilaterally; Absent respiratory distress, rhonchi, stridor, wheezes or crackles *Routine Cardiovascular Exam Cardiovascular: Present RRR *Routine Abdominal Exam Abdominal: Present soft and normoactive bowel sounds; Absent tenderness *Routine Rectal Exam Patient deferred: visual exam *Routine Exam Patient deferred: external exam *Routine Extremities Exam Extremities: Absent cyanosis, clubbing or edema *Routine Skin Exam Skin: Present intact and warm; Absent rash *Routine Neurological Exam Neurological: Present altered mental status and moving all extremities (Spontaneous movement, spends most of her time however curled in position) Comments: Nonresponsive to verbal stimuli, having spontaneous movement. Screaming out intermittently followed by episodes of somnolence. Not following commands. Routine Psychiatric Exam Psychiatric: Present agitated Results Data Completed and Pending Labs on day of discharge: Labs from last 24 hours 09/25/24 09/25/24 09/25/24 08:50 08:28 05:59 Hgb Hct POC Glucose 76 55 L 70 Crossmatch (AHG) 09/25/24 09/24/24 09/24/24 02:36 22:01 20:08 Hgb Hct POC Glucose 78 81 75 Crossmatch (AHG) 09/24/24 09/24/24 09/24/24 16:09 14:25 13:21 Hgb 8.4 L D Hct 25.8 L POC Glucose 121 H 82 Crossmatch (AHG) 09/24/24 09/24/24 09/24/24 08:37 06:11 05:08 Hgb Hct POC Glucose 81 71 Crossmatch (AHG) See Detail 09/24/24 09/24/24 09/24/24 03:59 03:01 02:15 Hgb Hct POC Glucose 81 81 106 Crossmatch (AHG) 09/24/24 01:07 Hgb Hct POC Glucose 87 Crossmatch (AHG) Preliminary micro results at discharge 09/23/24 01:20 Blood Culture - Preliminary Blood NO GROWTH AFTER 48 HOURS 09/23/24 01:08 Blood Culture - Preliminary Blood NO GROWTH AFTER 48 HOURS DS: Diagnosis Discharge Diagnosis (1) Shock: Status: Acute Code(s): R57.9 - Shock, unspecified (2) Seizure disorder: Status: Acute Code(s): G40.909 - Epilepsy, unspecified, not intractable, without status epilepticus (3) Breakthrough seizure: Status: Acute Code(s): G40.919 - Epilepsy, unspecified, intractable, without status epilepticus (4) Metabolic encephalopathy: Status: Acute Code(s): G93.41 - Metabolic encephalopathy (5) Hypothermia: Status: Acute Code(s): T68.XXXA - Hypothermia, initial encounter (6) Hypothyroidism: Status: Acute Code(s): E03.9 - Hypothyroidism, unspecified (7) Atrial fibrillation: Status: Acute Code(s): I48.91 - Unspecified atrial fibrillation Problem details: history of (8) Dementia: Status: Acute Code(s): F03.90 - Unspecified dementia, unspecified severity, without behavioral disturbance, psychotic disturbance, mood disturbance, and anxiety (9) Severe protein-calorie malnutrition: Status: Acute Code(s): E43 - Unspecified severe protein-calorie malnutrition (10) Functional quadriplegia: Status: Acute Code(s): R53.2 - Functional quadriplegia Meds Home Medications and Allergies Home Medications ?Medication ?Instructions ?Recorded ?Confirmed ?Type amiodarone 200 mg tablet 200 mg PO DAILY 10/25/23 09/23/24 History apixaban 5 mg tablet 5 mg PO BID 10/25/23 09/23/24 History melatonin 5 mg capsule 5 mg PO HS 10/25/23 09/23/24 History polyethylene glycol 3350 17 17 g PO DAILY 10/25/23 09/23/24 History gram/dose oral powder acetaminophen 500 mg tablet 500 mg PO Q6H PRN Pain 03/12/24 09/23/24 History mirtazapine 15 mg tablet (Remeron) 15 mg PO TID 06/26/24 09/23/24 History buspirone 5 mg tablet 5 mg PO TID 07/30/24 09/23/24 History lansoprazole 30 mg capsule,delayed 30 mg PO DAILY 07/30/24 09/23/24 History release hydrocodone 5 mg-acetaminophen 325 1 tab PO TID #90 tabs 07/31/24 09/23/24 Rx mg tablet olanzapine 5 mg tablet (Zyprexa) 7.5 mg PO BID 09/04/24 09/23/24 History divalproex 125 mg capsule,delayed 250 mg PO QID 09/10/24 09/23/24 History release sprinkle (Depakote Sprinkles) levothyroxine 125 mcg tablet 125 mcg PO DAILYDM 30 days #30 tabs 09/16/24 09/23/24 Rx (Synthroid) clonidine HCl 0.1 mg tablet 0.1 mg PO BID 30 days #0 tabs 09/25/24 09/23/24 Rx New Prescriptions to Start Prescriptions: Allergies Allergy/AdvReac Type Severity Reaction Status Date / Time No Known Allergies Allergy Verified 09/04/24 14:39 Discharge Plan Disposition Patient Disposition: Hospice - Medical Facility Condition: Serious Discharge Order Discharge Orders: Discharge Order (Routine); Ordered 09/25/24 Ordered By: Javier Barrientos Follow up Plan Follow up with: Sherry Royal APRN [Primary Care Provider, Family Practice] - Enter time for follow up Referral Note: At nursing facility Prescriptions/Medication Reconciliation: Continued buspirone 5 mg tablet 5 mg PO TID mirtazapine [Remeron] 15 mg tablet 15 mg PO TID acetaminophen 500 mg tablet 500 mg PO Q6H PRN (Reason: Pain) lansoprazole 30 mg capsule,delayed release(DR/EC) 30 mg PO DAILY olanzapine [Zyprexa] 5 mg tablet 7.5 mg PO BID amiodarone 200 mg tablet 200 mg PO DAILY apixaban 5 mg tablet 5 mg PO BID melatonin 5 mg capsule 5 mg PO HS polyethylene glycol 3350 17 gram/dose powder 17 g PO DAILY hydrocodone-acetaminophen 5-325 mg tablet 1 tab PO TID Qty: 90 0RF divalproex [Depakote Sprinkles] 125 mg capsule, delayed rel sprinkle 250 mg PO QID levothyroxine [Synthroid] 125 mcg Tablet 125 mcg PO DAILYDM 30 Days Qty: 30 0RF Changed clonidine HCl 0.1 mg tablet 0.1 mg PO BID 30 Days Qty: 0 0RF Rx Instructions: HOLD IF BP 100/60 OR BELOW Discontinued ferrous sulfate [FeroSul] 325 mg (65 mg iron) tablet 325 mg PO DAILY Problem Reconciliation Problems Reviewed?: Yes Patient Discharge Instructions ACTIVITY: Continue current activity DIET: continue same diet Print Language: Emirati Providers Primary Care Provider: Sherry Royal Admit Provider: Dashawn Galicia Attending Provider: Dashawn Galicia
--- NOTE | 2024-09-25 12:11 | PC.NURSE ---
Addendum entered by KAITLYNN Oakes 09/25/24 12:12: See hemodynamic monitoring for rectal temperature trend. Original Note: due to pts rectal temp of 95.4F shahriar hugger was placed per hypothermia protocol. will check temperature recally Q1hr.
[2024-09-25 12:16] LABS: POC Glucose,Bedside 69 (70-110)
[2024-09-25 12:45] LABS: POC Glucose,Bedside 102 (70-110)
[2024-09-25] MEDS: DIVALPROEX SOD SPRINKLE 125MG CAPSULE 250 MG PO ×2 (13:08→17:20)
[2024-09-25] MEDS: MIRTAZAPINE 15 MG TABLET 7.5 MG PO (13:08)
[2024-09-25] MEDS: BUSPIRONE HCL 5 MG TABLET PO (13:09)
[2024-09-25] MEDS: DEXTROSE 50% 50ML SYRINGE (CRASH CART) 25 ML IVP (16:30)
[2024-09-25 17:21] LABS: Free Valproic Acid (Depakote) None Detected ug/mL (6.0-22.0)
--- NOTE | 2024-09-25 18:34 | PC.NURSE ---
Report called to Rei Márquez @ [facility]
--- NOTE | 2024-09-25 18:37 | PC.NURSE ---
1837 - [facility] contacted, spoke to Liliane Dodson about to transport to [place].
[2024-09-27 16:41] LABS: POC Glucose,Bedside 55 (70-110)
[2024-09-27 17:33] LABS: POC Glucose,Bedside 102 (70-110)
[2024-09-27 17:34] LABS: POC Glucose,Bedside 52 (70-110)
--- NOTE | 2024-09-29 15:28 | PC.NURSE ---
blood cultures completed, no growth. ntd
== END 2024-09-25 19:09 | disposition hospice, inpatient (51) | DRG 871 ==
LOC: ER 04:12 → 2ND 04:14 → ICU 09-24 17:03
PROVIDERS: Internal Medicine Adolescent Medicine; Admitting Provider Student in an Organized Health Care Education/Training Program; Emergency Provider Emergency Medicine; PCP Nurse Practitioner Family; Visit Provider Student in an Organized Health Care Education/Training Program
DX: A41.9 Sepsis, unspecified organism (principal); E43 Unspecified severe protein-calorie malnutrition; G93.41 Metabolic encephalopathy; R53.2 Functional quadriplegia; R65.21 Severe sepsis with septic shock; J15.212 Pneumonia due to Methicillin resistant Staphylococcus aureus; F03.911 Unspecified dementia, unspecified severity, with agitation; I13.0 Hypertensive heart and chronic kidney disease with heart failure and stage 1 through stage 4 chronic kidney disease, or unspecified chronic kidney disease; I48.91 Unspecified atrial fibrillation; I50.9 Heart failure, unspecified; G40.909 Epilepsy, unspecified, not intractable, without status epilepticus; E78.5 Hyperlipidemia, unspecified; E03.9 Hypothyroidism, unspecified; N18.9 Chronic kidney disease, unspecified; E11.22 Type 2 diabetes mellitus with diabetic chronic kidney disease; R68.0 Hypothermia, not associated with low environmental temperature; D72.819 Decreased white blood cell count, unspecified; R53.81 Other malaise; E11.649 Type 2 diabetes mellitus with hypoglycemia without coma; Z79.01 Long term (current) use of anticoagulants; Z79.890 Hormone replacement therapy; Z66 Do not resuscitate; Z87.891 Personal history of nicotine dependence; Z51.5 Encounter for palliative care; Z86.73 Personal history of transient ischemic attack (TIA), and cerebral infarction without residual deficits; Z68.23 Body mass index [BMI] 23.0-23.9, adult
CPT/HCPCS: 36415; 36430; 70450; 80048; 80053; 80164; 80165; 81001; 82803; 82962; 83605; 83735; 84100; 84436; 84443; 85014; 85018; 85025; 86850; 87040; 87081; 93005; 99291; J1650; J1756; J2060; J2250; J2470; J2543; J3370; J3372; J7042; J7050; J7120; P9016

== ENCOUNTER 2024-11-01 15:51 | Outpatient (CLI) | payer MEDICAID, SELFPAY ==
--- OUTSIDE RECORDS SUMMARY | 2024-11-01 15:53 | XMS_ITS ---
Author Name Auto Generated, Auto Generated Organization [facility] Address [address] [place] [address] Phone [phone] Care Team Providers Care Central Office Operator Supervisor Name Role Phone Tevin Bernabe Unavailable [phone] Rebekah Paige Unavailable [phone] Joaquin Lyn Unavailable Functional Status No Results Mental Status No Results Allergies and Intolerances Name Onset Date Reaction Severity No Known Allergies (Allergy) MonSeptember 26 00:10:00 EDT 2024 Encounters Program Name Primary Diagnosis Admission Date/Time Dis charge Date/Time null Hypoglycemia, unspecified MonAug 10 20:00:00 EDT 2023 Home-based Hospice Alzheimer's disease, unspecified MonSeptember 24 20:00:00 EDT 2024 Medications Medication Directions Start Date End Date Ativan 1 mg tablet 1 Tablet Oral 3 Time s Daily, PRN Every 6 Hours Indication: anxiety/restlessness MonOct 14 00:00:00 EDT 2024 morphine concentrate 100 mg/5 mL (20 mg/mL) oral solution 0.25 Milliliter Oral 4 Times Daily, PRN 1 Time Daily Indication: pain/dyspnea MonOct 14 00:00:00 EDT 2024 atropine 1 % eye drops 2 Drop Sublingual PRN Every 4 Hours Indication: secretions MonOct 14 00:00:00 EDT 2024 bisacodyL 10 mg rectal suppository 1 Suppository Rectal PRN 1 Time Daily Indication: constipation MonOct 04 00:00:00 EDT 2024 morphine concentrate 100 mg/5 mL (20 mg/mL) oral solution 0.25 Milliliter Oral 3 Times Daily, PRN Every 6 Hours Indication: pain/dyspnea; NO MDD EOL MonOct 04 00:00:00 2024Oct 14 15:11:00 ED2024 acetaminophen 650 mg rectal suppository 1 Suppository Rectal PRN Every 4 Hours Indication: fever MonOct 04 00:00:00 2024 Ativan 1 mg tablet 1 Tablet Oral 2 Time s Daily, PRN Every 4 Hours Indication: anxiety/restlessness; NO MDD EOL MonOct 04 00:00:00 EDT 2024Oct 14 15:10:00 ED2024 loperamide 2 mg tablet 1 Tablet Oral PRN 8 Times Daily Indication: 2mg after each loose watery stool, max 8tabs(16mg)/day MonSeptember 27 00:00:00 2024 LORazepam 2 mg tablet 1 Tablet Oral PRN 2 Times Daily Indication: administer with seizure activity, may repeat in 5mins x1 if continued seizure activity, call hospice at start of seizure MonSeptember 27 00:00:00 ED2024 HYDROcodone 5 mg-acetaminophen 325 mg tablet 1 Tablet Oral 3 Times Daily, PRN 1 Time Daily Indication: pain/SOA MonSeptember 27 00:00:00 2024Oct 04 12:00:00 ED2024 acetaminophen 500 mg tablet 1 Tablet Oral PRN Every 6 Hours Indication: mild pain; max 3g/24h from all sources MonSeptember 27 00:00:00 2024Oct 04 12:00:00 2024 acetaminophen 500 mg tablet 1 Tablet Oral PRN Every 6 Hours Indication: mild pain MonSeptember 26 00:00:00 2024September 27 09:37:00 ED2024 amiodarone 200 mg tablet 1 Tablet Oral E very 1 Day Indication: atrial fibrillation MonSeptember 25 00:00:00 ED2024Oct 04 12:00:00 2024 polyethylene glycoL 3350 17 gram oral powder packet 17 Gram Oral Every 1 Day Indication: constipation MonSeptember 25 00:00:00 2024Oct 04 12:01:00 2024 Eliquis 5 mg tablet 1 Tablet Oral 2 Time s Daily Indication: blood thinner Stephanie September 26 00:00:00 2024Oct 04 12:00:00 ED2024 busPIRone 5 mg tablet 1 Tablet Oral 3 Ti mes Daily Indication: anxiety MonSeptember 25 00:00:00 EDT 2024Oct 04 12:00:00 EDT 2024 Depakote Sprinkles 125 mg capsule,delayed release 2 Capsule Oral 4 Times Daily Indication: seizure prevention MonSeptember 25 00:00:00 EDT 2024Oct 04 12:00:00 EDT 2024 HYDROcodone 5 mg-acetaminophen 325 mg tablet 1 Tablet Oral 3 Times Daily Indication: pain MonSeptember 25 00:00:00 EDT 2024September 27 09:20:00 EDT 2024 lansoprazole 30 mg capsule,delayed release 1 Capsule Oral Every 1 Day Indication: GI upset MonSeptember 25 00:00:00 EDT 2024Oct 04 12:00:00 EDT 2024 levothyroxine 125 mcg tablet 1 Tablet Oral Every 1 Day Indication: hypothyroidism MonSeptember 25 00:00:00 EDT 2024Oct 04 12:00:00 EDT 2024 melatonin 5 mg capsule 1 Capsule Oral Ho ur Of Sleep Indication: insomnia MonSeptember 25 00:00:00 EDT 2024Oct 04 12:00:00 EDT 2024 Remeron 15 mg tablet 1 Tablet Oral 3 Jay es Daily Indication: depression / anxiety MonSeptember 25 00:00:00 EDT 2024Oct 04 12:00:00 EDT 2024 ZyPREXA 5 mg tablet 1.5 Tablet Oral 2 Ti mes Daily Indication: antipsychotic / dementia MonSeptember 25 00:00:00 EDT 2024Oct 04 12:00:00 EDT 2024 cloNIDine HCL 0.1 mg tablet 1 Tablet Oral 2 Times Daily Indication: blood pressure HOLD if BP 100/60 or below MonSeptember 25 00:00:00 EDT 2024Oct 04 12:00:00 EDT 2024 Treatment Plan Problems Active Concerns * Hypoglycemia* Code: [id number] * Start Date: MonJan 29 08:00:00 EDT 2023 * End Date: * Text: Hypoglycemia Social History Social History Observation Description Date Smoking Status Former smoker MonSeptember 25 00:00 :00 EDT 2024 Sex Female MonFeb 20 00:00 :00 EST 1950 Vital Signs Vital Sign Measurement Date Body weight 117 [lb_av] MonSeptember 25 15:20 :00 EDT 2024 Systolic blood pressure 138 mm[Hg] MonSeptember 25 15:20:00 EDT 2024 Diastolic blood pressure 70 mm[Hg] MonSeptember 25 15:20:00 EDT 2024 Respiratory rate 18 /min MonSeptember 25 15:2 0:00 EDT 2024 Body temperature 97.6 [degF] MonSeptember 25 15:2 0:00 EDT 2024 Heart rate 68 /min MonSeptember 25 15:20 :00 EDT 2024 Heart rate 76 /min MonOct 21 07:15 :00 EDT 2024 Systolic blood pressure 154 mm[Hg] MonSeptember 27 04:55:00 EDT 2024 Diastolic blood pressure 96 mm[Hg] MonSeptember 27 04:55:00 EDT 2024 Heart rate 56 /min MonSeptember 27 04:55 :00 EDT 2024 Heart rate 58 /min MonOct 04 07:00 :00 EDT 2024 Respiratory rate 11 /min MonOct 14 10:1 5:00 EDT 2024 Heart rate 76 /min MonOct 14 10:15 :00 EDT 2024 Heart rate 51 /min MonOct 28 08:28 :00 EDT 2024 Systolic blood pressure 124 mm[Hg] MonOct 18 04:20:00 EDT 2024 Diastolic blood pressure 78 mm[Hg] MonOct 18 04:20:00 EDT 2024 Heart rate 84 /min MonOct 18 04:20 :00 EDT 2024 Reason for Referral
--- OUTSIDE RECORDS SUMMARY | 2024-11-01 15:55 | XMS_ITS | Clinical Summary ---
Author Organization [facility] Address [address] [place] [address] Phone Care Team Providers Care Air Support Control Officer Name Role Phone Unavailable Primary Care Provider Unavailabl e Allergies No known active allergies Medications * This document contains information received from the source organization and may not represent a complete record from that organization. clonazePAM (KLONOPIN) 0.5 mg Oral Tablet Take 1 Tablet by mouth 2 times daily. 60 Tablet 1 01/09/2024 Active LORazepam (ATIVAN) 2 mg/mL Inj SolutionIndicati ons:Severe late onset Alzheimer's dementia with agitation (HCC) Inject 1 ml IM q 6 hours PRN severe agitation/a nxiety x 14 days 21 mL 2024 Active risperiDONE (RISPERDAL M-TABS) 3 mg Oral Tablet, Rapid Dissolve Take 1 Tablet by mouth daily. 30 Tablet 3 03/12/2024 Active Active Problems No known active problems Social History Tobacco Use Types Packs/Day Years Used Date Smoking Tobacco: Former Cigarettes Smokeless Tobacco: Never Tobacco Cessation:Counseling Given: Not Answered Alcohol Use Standard Drinks/Week Comments Not Currently 0 (1 standard drink = 0.6 oz pur e alcohol) Comments Unknown Sex and Gender Information Value Date Recorded Sex Assigned at Not on file Legal Sex Female 9:53 AM EDT Gender Identity Not on file Sexual Orientation Not on file Obstetrics History Plan of Treatment Health Maintenance Due Date Last Done Comments Wellness Exam Medicare 1953 Hepatitis C Screening 1969 DTaP/TDaP/Td (1 - Tdap) 1970 Breast Cancer Screening 1991 Cologuard 02/21/1996 Colon Cancer Screening 02/21/1996 Colonoscopy 02/21/1996 FIT 02/21/1996 Sigmoidoscopy 02/21/1996 Virtual Colonography 02/21/1996 Pneumococcal Vaccine 50+ (1 of 1 - PCV) 2001 Zoster (1 of 2) 2001 Bone Density Screening 02/21/2016 COVID-19 Vaccine (1 - 2023-2 5 season) 2023 Influenza Vaccine (#1) 2024 Hepatitis B Vaccine Aged Out No longe r eligible based on patient's age to complete this topic Meningococcal B Vaccine Aged Out No l onger eligible based on patient's age to complete this topic Insurance [employer] [facility] [place] [id number] MEDICARE PART B [id number] [id number] MEDICAID [place]
--- OUTSIDE RECORDS SUMMARY | 2024-11-01 15:55 | XMS_ITS | Clinical Summary ---
Author Organization [facility] Address [address] [place] [address] Phone Care Team Providers Care Clinical Data Specialist Name Role Phone Unavailable Unavailable Conditions or Problems No information available. Medications No information available. Medications Administered No information available. Allergies, Adverse Reactions, Alerts No information available. Results No information available. Plan of Care No information available. Procedures No information available. Vital Signs No information available. Immunizations No information available. Advance Directives No information available.
--- OUTSIDE RECORDS SUMMARY | 2024-11-01 15:55 | XMS_ITS | Clinical Summary ---
Author Organization Healthcare Address [address] [id number] Care Team Providers Care Motel Keeper Name Role Phone Unavailable Primary Care Provider Unavailabl e Allergies No known active allergies Medications amiodarone (Pacerone) 200 MG tablet Take 1 tablet (200 mg) by mouth 1 (one) time each day. 03/21/2024 Active Eliquis 5 MG tablet Take 1 tablet (5 mg) by mouth 2 (two) times a day. 03/12/2024 Active Melatonin 5 MG tablet tablet Take 1 tablet (5 mg) by mouth every night. 03/18/2024 Active polyethylene glycol (Miralax) 17 GM/SCOOP powder Take 17 g by mouth every night. 01/23/2024 Active levothyroxine (Synthroid, Levoxyl) 25 MCG tablet Take 1 tablet (25 mcg) by mouth 1 (one) time each day in the morning. 04/05/2024 Active Active Problems Problem Noted Date Diagnosed Date Severe Alzheimer's dementia with agitation 04/04 Hypothermia, initial encounter 03/23/2024 Immunizations Immunization Administration Dates Next Due Influenza, injectable, quadrivalent, preservativ e free 03/23/2021 Pneumococcal Polysaccharide PPV23 03/23/2021 Zoster, live 09/14/2012 Social History Tobacco Use Types Packs/Day Years Used Date Smoking Tobacco: Never Assessed Humiliation, Afraid, Rape, and Kick questionnair e Answer Date Recorded Within the last year, have y ou been afraid of your partner or ex-partner? No 03/25/2024 Within the last year, have y ou been humiliated or emotionally abused in other ways by your partner or ex-partner? No Within the last year, have y ou been kicked, hit, slapped, or otherwise physically hurt by your partner or ex-partner? No 03/25/2024 Within the last year, have y ou been raped or forced to have any kind of sexual activity by your partner or ex-partner? No 03/25/2024 Social Connection and Isolation Panel Answer Date Recorded In a typical week, how many times do you talk on the phone with family, friends, or neighbors? More than three times a week 03/25/2024 How often do you get togethe r with friends or relatives? More than three times a week 03/25/2024 How often do you attend chur or uatsdin services? Never 03/25/2024 Do you belong to any clubs o r organizations such as anglican groups, unions, fraternal or athletic groups, or school groups? No 03/25/2024 How often do you attend meet ings of the clubs or organizations you belong to? Never 03/25/2024 Are you , , di vorced, , never , or living with a partner? Patient declined 03/25/2024 AUDIT-C Answer Date Recorded Q1: How often do you have a drink containing alcohol? Never 03/25/2024 Q2: How many drinks containi ng alcohol do you have on a typical day when you are drinking? Patient does not drink Q3: How often do you have si x or more drinks on one occasion? Never 03/25/2024 [facility] - Occupational Stress Questionnaire Answer Date Recorded Do you feel stress - tense, restless, nervous, or anxious, or unable to sleep at night because your mind is troubled all the time - these days? Not at all 03/25/2024 Exercise Vital Sign Answer Date Recorde d On average, how many days pe r week do you engage in moderate to strenuous exercise (like a brisk walk)? 0 days 03/25/2024 On average, how many minutes do you engage in exercise at this level? 0 min 03/25/2024 Hunger Vital Sign Answer Date Recorded Within the past 12 months, y ou worried that your food would run out before you got the money to buy more. Never true 03/25/20 24 Within the past 12 months, t he food you bought just didn't last and you didn't have money to get more. Never true 03/25/2024 PRAPARE - Transportation Answer Date Re corded In the past 12 months, has l ack of transportation kept you from medical appointments or from getting medications? No 03/02 In the past 12 months, has l ack of transportation kept you from meetings, work, or from getting things needed for daily living? No 03/25/2024 Housing Stability Vital Sign Answer Edgar e Recorded In the last 12 months, was t here a time when you were not able to pay the mortgage or rent on time? No 03/25/2024 In the past 12 months, how m any times have you moved where you were living? 1 03/25/2024 At any time in the past 12 m [facility], were you homeless or living in a fpc (including now)? No 03/25/2024 Utilities Answer Date Recorded In the past 12 months has th e electric, gas, oil, or water company threatened to shut off services in your home? No 03/25/2024 Comments Unknown Sex and Gender Information Value Date Recorded Sex Assigned at Not on file Legal Sex Female 4:34 PM EST Gender Identity Not on file Sexual Orientation Not on file Last Filed Vital Signs Vital Sign Reading Time Taken Comments Blood Pressure 178/110 04/04/2024 3:58 PM EST Pulse 72 04/04/2024 3:58 PM EST Temperature 36.7 C (98 F) 04/04/2024 10:52 AM EST Respiratory Rate 16 04/04/2024 1:53 AM EST Oxygen Saturation 100% 04/04/2024 3:58 PM EST Inhaled Oxygen Concentration - - Weight 66.8 kg (147 lb 4.3 oz) 04/02/2024 6:00 A M EST Height 160 cm (5' 2.99 ) 03/24/2024 12:00 PM EST Body Mass Index 26.09 03/24/2024 12:00 PM EST Plan of Treatment Health Maintenance Due Date Last Done Comments [facility]-Bone Density Scan 1950 [facility]-Depression Screening 1950 [facility]-Medicare Annual Wellness (AWV) 1950 [facility]-Infant/Child/Adol SDOH Screenings 1950 [facility]-DTaP,Tdap,and Td Vaccine s (1 - Tdap) 1970 CT Colonography 02/21/1996 Colonoscopy 02/21/1996 FIT-DNA 02/21/1996 FIT 02/21/1996 FOBT 02/21/1996 Sigmoidoscopy 02/21/1996 [facility]-Colorectal Cancer Screening 02/21/1996 [facility]-Breast Cancer Screening 2001 [facility]-RSV Vaccine: 60+ Years o r (1 - Risk 60-74 years 1-dose series) 2011 [facility]-Zoster Vaccines (2 of 3) 11/09/2012 09/14/2012 [id number] Vaccine (3 - Moderna risk series) 07/07/2020 06/09/2020, 05/13/2020 [facility]-Pneumococcal Vaccine: 50 + Years (2 of 2 - PCV) 03/23/2022 03/23/2021 [facility]- SDOH Screenings 09/22/2024 [facility]-Adult SDOH Screenings 09/22/2024 03/25/2024 [facility]-Influenza Vaccine (Seaso n Ended) 2024 03/23/2021 [facility]-Diabetes: Hemoglobin A1C 03/23/2025 03/23/2024 [facility]-Hepatitis C Screening Completed 2023, 03/23/2024 [facility]-Obesity Intervention Completed 03/23/2024 HPV Vaccines Aged Out No longer eligi ble based on patient's age to complete this topic [facility]-HIB Vaccines Aged Out No longer e ligible based on patient's age to complete this topic [facility]-Hepatitis A Vaccines Aged Out No longer eligible based on patient's age to complete this topic [facility]-IPV Vaccines Aged Out No longer e ligible based on patient's age to complete this topic [facility]-Rotavirus Vaccines Aged Out No lo nger eligible based on patient's age to complete this topic Procedures Procedure Name Priority Date/Time Associated Diagnosis Comments ACUTE HEPATITIS PANEL Routine 03/23/2024 8:05 PM EST HEMOGLOBIN A1C Routine 03/23/2024 8:05 PM EST from Last 3 Months or Most Recently Relevant to Health Maintenance Results * Acute Hepatitis Panel (03/23/2024 8:05 PM EST) Hepatitis B Surf Antigen Negative Negative 03/24/2024 6:50 PM EST [facility] Hepatitis C Antibody Negative Negative 03/24/2024 6:50 PM EST [facility] Hepatitis A Antibody IgM Negative Negative 03/24/2024 6:50 PM EST [facility] Hepatitis B Core Antibody IgM Negative Negative 03/24/2024 6:50 PM EST [facility] Blood Venous blood specimen / Unknown Venipuncture / Unknown 03/23/2024 8:05 PM EST 03/23/2024 8:13 PM EST us Mitchell Chinchilla [employer] SUPERVISOR LAB BLOOD ORDERABLES Final R esult Performing Organization Address City/[facility]/ZIP Co de Phone Number [facility] [address] [place] [address] * (ABNORMAL) Hemoglobin A1c (03/23/2024 8:05 PM EST) Hemoglobin A1c 5.7(H) <5.7 % 03/24/2024 12:54 AM EST [facility] Blood Venous blood specimen / Unknown Venipuncture / Unknown 03/23/2024 8:05 PM EST 03/23/2024 8:13 PM EST Narrative [facility] - 03/24/2024 12:54 AM EST HA1C Interpretive Data: Diagnosis of Diabetes: Diabetic > or = 6.5% Pre-diabetic 5.7 to 6.4% Non-diabetic < or = 5.6% Glycemic Targets for Type I and Type II Diabetics: Non- Adults <7.0% Adults <6.0% Children and Adolescents <7.5% Source: [place] [employer]. Standards of medical care in diabetes,2017. Diabetes Care.2017:40 (suppl 1):S1-S135. HbA1c assay performed by an ion-exchange chromatography method that is certified traceable to the DCCT. us Mitchell Chinchilla [employer] SUPERVISOR LAB BLOOD ORDERABLES Final R esult Performing Organization Address City/[facility]/ZIP Co de Phone Number [facility] [address] [place] [address] from Last 3 Months or Most Recently Relevant to Health Maintenance Additional Health Concerns Infection Onset Date Last Indicated MRSA 03/23/2024 03/23/2024 Insurance [place] [id number] [place] [address] MEDICAID-[place] Advance Directives Documents on File Type Date Recorded Patient Registered Nurse Step Down Expl anation Advance Directives and Livin g Will 03/25/2024 12:23 PM * DNR - Ok to intubate (Latest Code Status on File) Date Activated Date Inactivated Comments 03/23/2024 7:48 PM 04/04/2024 8:49 PM Question Answer Comments DNR determined on/before admission date? Yes Patient has decision-making capacity? No Healthcare Surrogate: Court-appointed guardian Name of Healthcare Surrogate: Akilah Espana
[2024-11-01 16:36] LABS: Benzodiazepines Screen,Urine Negative ng/ml (<200)
[2024-11-01 16:37] LABS: Amphetamine/Metha Screen,Urine Negative ng/ml (<1000)
[2024-11-01 16:38] LABS: Barbiturates Screen,Urine Negative ng/ml (<200)
[2024-11-01 16:41] LABS: Methadone Screen,Urine Negative ng/ml (<300)
[2024-11-01 16:42] LABS: Opiate Screen,Urine Positive ng/ml (<300); Phencyclidine Screen,Urine Negative ng/ml (<25)
== END 2024-11-01 23:59 | disposition home or self-care (01) ==
LOC: LAB.DROPOF 15:53
PROVIDERS: PCP Nurse Practitioner Family; Visit Provider Nurse Practitioner Family
DX: G40.909 Epilepsy, unspecified, not intractable, without status epilepticus (principal)
CPT/HCPCS: 80307

== ENCOUNTER 2024-11-03 12:29 | Outpatient (CLI) | payer MEDICAID, SELFPAY ==
--- OUTSIDE RECORDS SUMMARY | 2024-11-03 12:30 | XMS_ITS ---
Author Name Auto Generated, Auto Generated Organization [facility] ator Address [address] [place] [address] Phone [phone] Care Team Providers Care Aerospace Medicine Physician Name Role Phone Tevin Bernabe Unavailable [phone] Rebekah Paige Unavailable [phone] Joaquin Lyn Unavailable [phone] Functional Status No Results Mental Status No Results Allergies and Intolerances Name Onset Date Reaction Severity No Known Allergies (Allergy) MonSeptember 26 00:10:00 EDT 2024 Encounters Program Name Primary Diagnosis Admission Date/Time Dis charge Date/Time Home-based Hospice Alzheimer's disease, unspecified MonSeptember 24 20:00:00 EDT 2024 null Hypoglycemia, unspecified MonAug 10 20:00:00 EDT 2023 Medications Medication Directions Start Date End Date [...] Plan Problems Active Concerns * Hypoglycemia* Code: [id number] * Start Date: MonJan 29 08:00:00 EDT 2023 * End Date: * Text: Hypoglycemia Social History Social History Observation Description Date Smoking Status Former smoker MonSeptember 25 00:00 :00 EDT 2024 Sex Female MonFeb 20 00:00 :00 EST 1950 Vital Signs Vital Sign Measurement Date Respiratory rate 11 /min MonOct 14 10:1 5:00 EDT 2024 Heart rate 76 /min MonOct 14 10:15 :00 EDT 2024 Systolic blood pressure 124 mm[Hg] MonOct 18 04:20:00 EDT 2024 Diastolic blood pressure 78 mm[Hg] MonOct 18 04:20:00 EDT 2024 Heart rate 84 /min MonOct 18 04:20 :00 EDT 2024 Heart rate 51 /min MonOct 28 08:28 :00 EDT 2024 Heart rate 76 /min MonOct 21 07:15 :00 EDT 2024 Systolic blood pressure 154 mm[Hg] MonSeptember 27 04:55:00 EDT 2024 Diastolic blood pressure 96 mm[Hg] MonSeptember 27 04:55:00 EDT 2024 Heart rate 56 /min MonSeptember 27 04:55 :00 EDT 2024 Heart rate 58 /min MonOct 04 07:00 :00 EDT 2024 Body weight 117 [lb_av] MonSeptember 25 15:20 :00 EDT 2024 Systolic blood pressure 138 mm[Hg] MonSeptember 25 15:20:00 EDT 2024 Diastolic blood pressure 70 mm[Hg] MonSeptember 25 15:20:00 EDT 2024 Respiratory rate 18 /min MonSeptember 25 15:2 0:00 EDT 2024 Body temperature 97.6 [degF] MonSeptember 25 15:2 0:00 EDT 2024 Heart rate 68 /min MonSeptember 25 15:20 :00 EDT 2024 Reason for Referral
--- OUTSIDE RECORDS SUMMARY | 2024-11-03 12:30 | XMS_ITS ---
Author Name Auto Generated, Auto Generated Organization [facility] ator Address [address] [place] [address] Phone [phone] Care Team Providers Care Resident Manager Name Role Phone Tevin Bernabe Unavailable [phone] Rebekah Paige Unavailable Joaquin Lyn Unavailable Functional Status No Results [...] Plan Problems Active Concerns * Hypoglycemia* Code: [id number] * Start Date: MonJan 29 08:00:00 EDT 2023 * End Date: * Text: Hypoglycemia Social History Social History Observation Description Date Smoking Status Former smoker MonSeptember 25 00:00 :00 EDT 2024 Sex Female MonFeb 20 00:00 :00 EST 1950 Vital Signs Vital Sign Measurement Date Systolic blood pressure 124 mm[Hg] MonOct 18 04:20:00 EDT 2024 Diastolic blood pressure 78 mm[Hg] MonOct 18 04:20:00 EDT 2024 Heart rate 84 /min MonOct 18 04:20 :00 EDT 2024 Heart rate 76 /min MonOct 21 07:15 :00 EDT 2024 Respiratory rate 11 /min MonOct 14 10:1 5:00 EDT 2024 Heart rate 76 /min MonOct 14 10:15 :00 EDT 2024 Heart rate 51 /min MonOct 28 08:28 :00 EDT 2024 Body weight 117 [lb_av] [...] 25 15:20 :00 EDT 2024 Heart rate 58 /min MonOct 04 07:00 :00 EDT 2024 Systolic blood pressure 154 mm[Hg] MonSeptember 27 04:55:00 EDT 2024 Diastolic blood pressure 96 mm[Hg] MonSeptember 27 04:55:00 EDT 2024 Heart rate 56 /min MonSeptember 27 04:55 :00 EDT 2024 Reason for Referral
--- OUTSIDE RECORDS SUMMARY | 2024-11-03 12:31 | XMS_ITS | Clinical Summary ---
Author Organization Healthcare Address [address] [id number] Care Team Providers Care Advanced Practice Registered Nurse Name Role Phone Unavailable Primary Care Provider [...] How often do you attend chur or holiness services? Never 03/25/2024 Do you belong to any clubs o r organizations such as sikh groups, unions, fraternal or athletic groups, or [...] one occasion? Never 03/25/2024 [facility] - Occupational Stress Questionnaire Answer Date [...] any time in the past 12 m [facility], were you homeless or living in a retirement (including now)? No 03/25/2024 Utilities Answer Date [...] [facility]-Zoster Vaccines (2 of 3) 11/09/2012 09/14/2012 [id number] Vaccine (3 - Moderna risk series) 07/07/2020 06/09/2020, 05/13/2020 [facility]-Pneumococcal Vaccine: 50 + Years (2 of 2 - PCV) 03/23/2022 03/23/2021 [facility]- SDOH Screenings 09/22/2024 [facility]-Adult SDOH Screenings 09/22/2024 03/25/2024 [facility]-Influenza Vaccine (#1) 2024 03/23/2021 [facility]-Diabetes: Hemoglobin A1C 03/23/2025 03/23/2024 [...] Antigen Negative Negative 03/24/2024 6:50 PM EST [facility] Hepatitis C Antibody Negative Negative 03/24/2024 6:50 PM EST [facility] Hepatitis A Antibody IgM Negative Negative 03/24/2024 6:50 PM EST [facility] Hepatitis B Core Antibody IgM Negative Negative 03/24/2024 6:50 PM EST [facility] Blood Venous blood specimen / Unknown Venipuncture / Unknown 03/23/2024 8:05 PM EST 03/23/2024 8:13 PM EST us Mitchell Chinchilla CHAIR PAD MAKER LAB BLOOD ORDERABLES Final R esult Performing Organization Address City/[facility] Co de Phone Number [facility] [address] [place] [address] * (ABNORMAL) Hemoglobin A1c (03/23/2024 8:05 PM EST) Hemoglobin A1c 5.7(H) <5.7 % 03/24/2024 12:54 AM EST [facility] Blood Venous blood specimen / Unknown Venipuncture / Unknown 03/23/2024 8:05 PM EST 03/23/2024 8:13 PM EST Narrative [facility] - 03/24/2024 12:54 AM EST HA1C Interpretive Data: Diagnosis of Diabetes: Diabetic > or = 6.5% Pre-diabetic 5.7 to 6.4% Non-diabetic < or = 5.6% Glycemic Targets for Type I and Type II Diabetics: Non- Adults <7.0% Adults <6.0% Children and Adolescents <7.5% Source: [place] [employer]. Standards of medical care in diabetes,2017. Diabetes Care.2017:40 (suppl 1):S1-S135. HbA1c assay performed by an ion-exchange chromatography method that is certified traceable to the DCCT. us Mitchell Chinchilla CHAIR PAD MAKER LAB BLOOD ORDERABLES Final R esult Performing Organization Address City/[facility]/ZIP Co de Phone Number [facility] [address] [place] [address] from Last 3 Months or Most Recently Relevant to Health Maintenance Additional Health Concerns Infection Onset Date Last Indicated MRSA 03/23/2024 03/23/2024 Insurance [place] [id number] [place] [address] [place]ICAID-[place] Advance Directives Documents on File Type Date Recorded Patient Mine Equipment Design Engineer Expl anation Advance Directives and Livin g [...]
--- OUTSIDE RECORDS SUMMARY | 2024-11-03 12:31 | XMS_ITS | Clinical Summary ---
Author Organization [facility] Address [address] [place] [address] Phone Care Team Providers Care Production Recorder Name Role Phone Unavailable Unavailable Conditions or Problems No information available. Medications No information available. Medications Administered No information available. Allergies, Adverse Reactions, Alerts No information available. Results No information available. Plan of Care No information available. Procedures No information available. Vital Signs No information available. Immunizations No information available. Advance Directives No information available.
--- OUTSIDE RECORDS SUMMARY | 2024-11-03 12:31 | XMS_ITS | Clinical Summary ---
Author Organization [facility] Address [address] [place] [address] Phone Care Team Providers Care Retail Merchandising Specialist Name Role Phone Unavailable Primary Care Provider [...] age to complete this topic Insurance [employer]. [facility] [place] [id number] MEDIC[address] PART B [id number] [facility] [id number] MEDICAID [id number]
[2024-11-14 21:09] LABS: Amphetamines IA Negative ng/mL (Cutoff:50); Barbituates IA Negative ug/mL (Cutoff:0.1); Benzodiazepines IA ++POSITIVE++ ng/mL (Cutoff:20); Cocaine & Metabolites IA Negative ng/mL (Cutoff:25); Fentanyl, IA Negative ng/mL (Cutoff:1.0); Meperidine, IA Negative ng/mL (Cutoff:100); Methadone IA Negative ng/mL (Cutoff:25); Opiates IA ++POSITIVE++ ng/mL (Cutoff:5); Oxycodone IA Negative ng/mL (Cutoff:5); Phencyclidine IA Negative ng/mL (Cutoff:8); Propoxyphene IA Negative ng/mL (Cutoff:50); THC (marijauna) metabolite IA Negative ng/mL (Cutoff:5); Tramadol, IA Negative ng/mL (Cutoff:50)
== END 2024-11-03 23:59 | disposition home or self-care (01) ==
LOC: LAB.DROPOF 12:30
PROVIDERS: PCP Family Medicine; Visit Provider Family Medicine
DX: Z79.891 Long term (current) use of opiate analgesic (principal)
CPT/HCPCS: 80307